=== PATIENT | male | born 1935 | race Caucasian/White ===

== ENCOUNTER 2021-06-23 15:36 | Emergency (ER) | payer MEDICARE ==
--- OUTSIDE RECORDS SUMMARY | 2021-06-23 15:39 | XMS REPORT | Clinical Summary ---
:1935 Author Organization [facility] MD [facility] Address [address] [place] [address] Care Team Providers Name Role Phone Destin Persaud MD Primary Care Provider Allergies No known active allergies Medications No known medications Active Problems Not on file Encounters Date Type Specialty Care Team Description 03/28/2021 Documentation Dermatology Wendy Jaimes, RN 03/27/2021 Office Visit Dermatology Destin Persaud Senile angio ma (Primary Dx); Multiple actini c keratoses; Other seborrhei c keratosis; Lentigo; Personal histor y of malignant melanoma of skin; Actinic keratos is; Inflamed seborr heic keratosis 03/27/2021 NPR Patient Access Services 03/27/2021 Travel 03/07/2021 Emergency Emergency Medicine Gomez Jamil, Melanoma in situ (Primary Dx) 03/07/2021 Travel after 06/23/2020 Family History Medical History Relation Name Comments Brain cancer Son Relation Name Status Comments Son Alive Social History Tobacco Use Types Packs/Day Years Used Date Never Smoker Smokeless Tobacco: Never Used Alcohol Use Standard Drinks/Week Comments Never 0 (1 standard drink = 0.6 oz pure alcoho l) Alcohol Habits Answer Date Recorded How often do you have a drink containing alcohol? Never 03/27/2021 How many drinks containing alcohol do you have on a typical Not asked day when you are drinking? How often do you have six or more drinks on one occasion? No t asked Comment: Not asked Sex Assigned at Date Recorded Not on file Job Start Date Occupation Industry Not on file Not on file Not on file Obstetrics History Last Filed Vital Signs Vital Sign Reading Time Taken Comments Blood Pressure 160/78 03/27/2021 9:32 AM [employer] Pulse 67 03/27/2021 9:32 AM [employer] Temperature 36.7 C (98.1 F) 03/27/2021 9:32 AM [employer] Respiratory Rate 18 03/27/2021 9:32 AM [employer] Oxygen Saturation 97% 03/27/2021 9:32 AM [employer] Inhaled Oxygen Concentration - - Weight 84.3 kg (185 lb 13.6 oz) 03/27/2021 9:32 AM [employer] Height 165.1 cm (5' 5") 03/27/2021 9:32 AM [employer] Body Mass Index 30.93 03/27/2021 9:32 AM [employer] Plan of Treatment Date Type Specialty Care Team Description 09/25/2021 Office Visit Dermatology Destin Persaud MD [address] [place], [place] [address] (Wo rk) Health Maintenance Due Date Last Done Comments COVID-19 Vaccination (1) 01/07/1940 Procedures Procedure Name Priority Date/Time Associated Comments Diagnosis TMP HIV 1/2 AG&AB PATH Routine 03/07/2021 10:20 R esults for this INTERP AM [employer] procedure are i n the results section. FRACTIONATED BILIRUBIN Now 03/07/2021 10:20 R esults for this AM [employer] procedure are i n the results section. TOTAL PROTEIN Now 03/07/2021 10:20 Results fo r this AM [employer] procedure are i n the results section. ASPARTATE Now 03/07/2021 10:20 Results for this AMINOTRANSFERASE AM [employer] procedure a re in the results section. ALANINE AMINOTRANSFERASE Now 03/07/2021 10:20 Results for this AM [employer] procedure are i n the results section. ALKALINE PHOSPHATASE Now 03/07/2021 10:20 Res ults for this AM [employer] procedure are i n the results section. ALBUMIN LEVEL Now 03/07/2021 10:20 Results fo r this AM [employer] procedure are i n the results section. CALCIUM LEVEL TOTAL Now 03/07/2021 10:20 Resu lts for this AM [employer] MER[employer] procedure are i n the results section. .GLOMERULAR FILTRATION Now 03/07/2021 10:20 R esults for this RATE AM [employer] procedure are i n the results section. SERUM CREATININE Now 03/07/2021 10:20 Results for this AM [employer] procedure are i n the results section. ELECTROLYTE PANEL Now 03/07/2021 10:20 Result s for this AM [employer] procedure are i n the results section. BLOOD UREA NITROGEN Now 03/07/2021 10:20 Resu lts for this AM [employer] procedure are i n the results section. GLUCOSE LEVEL Now 03/07/2021 10:20 Results fo r this AM [employer] procedure are i n the results section. MANUAL DIFFERENTIAL STAT 03/07/2021 10:20 Resu lts for this AM [employer] MER[employer] procedure are i n the results section. Results CBC STAT 03/07/2021 10:20 Results for this AM [employer] MERCHANT procedure are i n the results section. HIV-1/2 ANTIGEN AND Now 03/07/2021 10:20 Resu lts for this ANTIBODIES, FOURTH AM [employer] MERCHANT procedure are in GENERATION the results section. PHOSPHORUS LEVEL Now 03/07/2021 10:20 Results for this AM [employer] MERCHANT procedure are i n the results section. MAGNESIUM LEVEL Now 03/07/2021 10:20 Results for this AM [employer] MERCHANT procedure are i n the results section. COMPREHENSIVE METABOLIC Now 03/07/2021 10:20 PANEL AM [employer] COMPLETE BLOOD COUNT W/ Now 03/07/2021 10:20 DIFFERENTIAL AM [employer] MERCHANT after 06/23/2020 Results TMP HIV 1/2 Ag&Ab Path Interp (03/07/2021 10:20 AM INTERNET MERCHANT) HIV 1/2 Ag&Ab Negative for HIV-1 antigen a nd HIV-1/HIV-2 antibodies. No laboratory evidence of HIV infection. If acute HIV infection is suspected, consider testing for HIV-1 RNA. ANDREIA GARCIA DONOR Interp Comment: CENTER CLAUDIO URRUTIA, Dictated by: CLAUDIO URRUTIA, Dictated Date/Time: 03.08.20 8:05 AM INTERNET MERCHANT Transcribed Date/Time: 03.08.2021 8:05 AM INTERNET MERCHANT Electronically Signed By: CLAUDIO URRUTIA, on 120 8:05 AM C Specimen Blood Performing Organization Address City/[facility]/ZIP [facility] Phon e Number [facility] DONOR [address] [address] HIV-1/2 Antigen and Antibodies, Fourth Generation (03/07/2021 10:20 AM INTERNET MERCHANT) Pathologist [facility] HIV 1/2 Ag & Ab, Non Reactive Non Reactive [facility] DONOR 4th Gen Comment: CENTER Performed at: [facility] [place] [address] Specimen Blood Performing Organization Address City/[facility] Phon e Number [facility] DONOR [address] [address] .Serum Creatinine (03/07/2021 10:20 AM INTERNET MERCHANT) Pathologist [facility] Creatinine 1.12 0.67 - 1.17 mg/dL [facility] C ENTER Specimen Blood Performing Organization Address City/[facility] Phon e Number [facility]ER Unless otherwise noted, [place] [address] CENTER all lab tests performed by: Division of Pathology and Laboratory Medicine [facility] (ABNORMAL) .CBC (03/07/2021 10:20 AM INTERNET MERCHANT) [facility] WBC 5.3 4.0 - 11.0 [facility] K/uL [facility] CENTER RBC 4.71 4.50 - 6.00 [facility] M/[facility] CENTER Hgb 13.9 (L) 14.0 - 18.0 [facility] gm/dL [facility] Hct 42.5 40.0 - 54.0 % [facility] MCV 90 82 - 98 fL [facility] MCH 29.5 27.0 - 31.0 pg [facility] MCHC 32.7 31.0 - 36.0 [facility] gm/dL [facility] RDW-SD 42.2 35.1 - 46.3 fL [facility] RDW-CV 12.8 12.0 - 15.5 % [facility] Platelet count 211 140 - 440 K/uL [facility] MPV 9.5 4.0 - 10.4 fL [facility] INRBC 0.0 <=0.0 % [facility] Comment: CANCER CENTER The INRBC (instrument NRBC) value reflects the enumera tion of nucleated red blood cells contained in a 200uL samp le of whole blood analyzed by the instrument. This value may differ from the NRBC value reported in a manual differ ential, which is based on a 100 cell differential. Specimen Blood Performing Organization Address City/State/ZIP Code Phon e Number [facility] Unless otherwise noted, [place] [address] CENTER all lab tests performed by: Division of Pathology and Laboratory Medicine [address] (ABNORMAL) Glomerular Filtration Rate (03/07/2021 10:20 AM INTERNET MERCHANT) eGFR-AA 68 >=60 [facility] Comment: mL/min/1.73 [facility] Normal eGFR: >= 60 mL/min/1.73 m2 sq. m Note: The eGFR is calculated using the CKD-EPI equation. The eGFR declines with age. eGFR <60 mL/min/1.73 m2 is considered as "decreased". This equation should only be used for patients 18 and older. According to the National dney Foundation's Kidney Disease Outcome Quality Initiative (KDOQI) classification and 2012 Kidney Disease Improving Global Outcomes (KDIGO) Clinical Practice Guideline, the stage of CKD should be categorized based on estimated GFR. Stage Description GFR mL/min/1.73 m2 1 Normal or high GFR >=90 2 Mildly decreased GFR 60-89 3a Mildly to moderately decreased GFR 45-59 3b Moderately to severely decreased GFR 30-44 4 Severely decreased GFR 15-29 5 Kidney failure <15 eGFR-LOIS 59 (L) >=60 [facility] Comment: mL/min/1.73 [facility] Normal eGFR: >= 60 mL/min/1.73 m2 sq. m Note: The eGFR is calculated using the CKD-EPI equation. The eGFR declines with age. eGFR <60 mL/min/1.73 m2 is considered as "decreased". This equation should only be used for patients 18 and older. According to the National dney Foundation's Kidney Disease Outcome Quality Initiative (KDOQI) classification and 2012 Kidney Disease Improving Global Outcomes (KDIGO) Clinical Practice Guideline, the stage of CKD should be categorized based on estimated GFR. Stage Description GFR mL/min/1.73 m2 1 Normal or high GFR >=90 2 Mildly decreased GFR 60-89 3a Mildly to moderately decreased GFR 45-59 3b Moderately to severely decreased GFR 30-44 4 Severely decreased GFR 15-29 5 Kidney failure <15 Specimen Blood Performing Organization Address City/[facility]/ZIP [facility] Phon e Number [facility] Unless otherwise noted, [address] all lab tests performed by: Division of Pathology and Laboratory Medicine [address] [place] [address] Fractionated Bilirubin (03/07/2021 10:20 AM INTERNET MERCHANT) Pathologist [facility] Bili Total 0.3 <=1.2 mg/dL [facility] Comment: CANCER CENTER Indocyanine Green (ICG) may cause falsely elevated bilirubin results. Total and direct bilirubin must not be measured from samples containing indocyanine green. False elevation of total mike irubin can be seen in patients with IgG concentrations above 28 g/L. Bili Direct <0.2Comment: <=0.3 mg/dL [facility] Indocyanine Green [facility] (ICG) may cause falsely elevated bilirubin results. Total and direct bilirubin must not be measured from samples containing indocyanine green. Bili Indirect See NoteComment: 0.0 - 0.9 [facility] Unable to calculate mg/dL [facility] Indirect Bilirubin result due to some parameters are outside reportable range Specimen Blood Performing Organization Address City/[facility] Phon e Number [facility] Unless otherwise noted, [address] all lab tests performed by: Division of Pathology and Laboratory Medicine [address] [place] [address] (ABNORMAL) Differential (03/07/2021 10:20 AM INTERNET MERCHANT) Pathologist [facility] Neutrophil % 58.0 42.0 - 66.0 % [facility] Lymphocyte % 30.6 24.0 - 44.0 % [facility] Monocyte % 8.7 (H) 2.0 - 7.0 % [facility] Eosinophil % 1.9 1.0 - 4.0 % [facility] Basophil % 0.6 0.0 - 1.0 % [facility] IGRE % 0.2Comment: IGRE % 0.0 - 0.4 % [facility] count includes [facility] Metamyelocytes, Myelocytes, and Promyelocytes. Neutrophil Abs 3.07 1.70 - 7.30 [facility] Lymphocyte Abs 1.62 1.00 - 4.80 [facility] Monocyte Abs 0.46 0.08 - 0.70 [facility] Eosinophil Abs 0.10 0.04 - 0.40 [facility] Basophil Abs 0.03 0.00 - 0.10 [facility] IG Abs 0.01 0.00 - 0.04 [facility] Specimen Blood Performing Organization Address City/State/ZIP Code Phon e Number [facility] Unless otherwise noted, [address] all lab tests performed by: Division of Pathology and Laboratory Medicine [address] [place] BUN (03/07/2021 10:20 AM INTERNET MERCHANT) Pathologist Sig nature BUN 14 6 - 23 mg/dL [facility] Specimen Blood Performing Organization Address City/[facility]/ZIP [facility] Phon e Number [facility] Unless otherwise noted, [address] all lab tests performed by: Division of Pathology and Laboratory Medicine [address] [place] ALT (03/07/2021 10:20 AM INTERNET MERCHANT) Pathologist Sig nature ALT 9 <=41 U/L [facility] Specimen Blood Performing Organization Address City/[facility]/ZIP Code Phon e Number [facility] Unless otherwise noted, [address] all lab tests performed by: Division of Pathology and Laboratory Medicine [address] [place] Aspartate Aminotransferase (03/07/2021 10:20 AM INTERNET MERCHANT) Pathologist Sig nature AST 13 <=40 U/L [facility] Specimen Blood Performing Organization Address City/[facility]/ZIP Code Phon e Number [facility] Unless otherwise noted, [address] all lab tests performed by: Division of Pathology and Laboratory Medicine [address] [place] Total Protein (03/07/2021 10:20 AM INTERNET MERCHANT) Pathologist Sig nature Total Protein 7.5 6.4 - 8.3 g/dL [facility] [place] [address] Specimen Blood Performing Organization Address City/[facility]/ZIP [facility] Phon e Number [facility] Unless otherwise noted, [address] all lab tests performed by: Division of Pathology and Laboratory Medicine [address] [place] Phosphorus Level (03/07/2021 10:20 AM INTERNET MERCHANT) Pathologist Sig nature Phosphorus 2.8 2.5 - 4.5 mg/dL [facility] [address] Specimen Blood Performing Organization Address [facility] Phon e Number [facility] Unless otherwise noted, [address] all lab tests performed by: Division of Pathology and Laboratory Medicine [address] [place] Alkaline Phosphatase (03/07/2021 10:20 AM INTERNET MERCHANT) Pathologist Sig nature Alk Phos 91 40 - 129 U/L [facility] Specimen Blood Performing Organization Address City/[facility] Phon e Number [facility] Unless otherwise noted, [address] all lab tests performed by: Division of Pathology and Laboratory Medicine [address] [place] Magnesium Level (03/07/2021 10:20 AM INTERNET MERCHANT) Pathologist Sig nature Magnesium 2.2 1.6 - 2.6 mg/dL [facility] [place] [address] Specimen Blood Performing Organization Address [facility] Phon e Number [facility] Unless otherwise noted, [address] all lab tests performed by: Division of Pathology and Laboratory Medicine [address] [place] (ABNORMAL) Glucose Level (03/07/2021 10:20 AM INTERNET MERCHANT) Glucose Level 100 (H) 70 - 99 mg/dL [facility] Comment: CANCER CENTER Effective 10/25/15, the gluco se reference intervals have been updated based on [place] [employer] guidelines (Standards of Medical Care in Diabetes 2016. Diabetes Care 2016; 39: S13-S22). Fasting blood glucose: Normal: 70-99 mg/dL Impaired fasting glucose (in creased risk for diabetes or pre-diabetes): 100- 125 mg/dL Diabetes mellitus: >/=126 mg/dL Random blood glucose: Normal: 70-199 mg/dL Note: Random glucose >100 mg/dL is assoc iated with increased risk for diabetes Specimen Blood Performing Organization Address [facility] Phon e Number [facility] Unless otherwise noted, [address] all lab tests performed by: Division of Pathology and Laboratory Medicine [address] [place] Calcium Level (03/07/2021 10:20 AM INTERNET MERCHANT) Pathologist Sig nature Calcium Lvl 9.6 8.4 - 10.2 mg/dL [facility] Specimen Blood Performing Organization Address City/[facility]/ZIP Code Phon e Number [facility] Unless otherwise noted, [address] all lab tests performed by: Division of Pathology and Laboratory Medicine [address] [place] [address] Albumin Level (03/07/2021 10:20 AM INTERNET MERCHANT) Pathologist Sig nature Albumin Lvl 4.8 3.5 - 5.2 gm/dL [facility] [place] [address] Specimen Blood Performing Organization Address City/[facility] Phon e Number [facility] Unless otherwise noted, [address] all lab tests performed by: Division of Pathology and Laboratory Medicine [address] [place] [address] Electrolyte Panel (03/07/2021 10:20 AM INTERNET MERCHANT) Pathologist Sig nature Sodium Lvl 141 136 - 145 mEq/L [facility] Potassium Lvl 4.4 3.5 - 5.1 mEq/L [facility] Chloride 103 98 - 107 mEq/L [facility] CO2 27 22 - 29 mEq/L [facility] Anion Gap 11 4 - 14 mEq/L [facility] Specimen Blood Performing Organization Address City/[facility] Phon e Number [facility] Unless otherwise noted, [address] all lab tests performed by: Division of Pathology and Laboratory Medicine [address] [place] [address] [place] after 06/23/2020 Insurance Payer Benefit Plan / Subscriber ID Effective Dates Phone Addre ss Type Group HUMANA HUMANA CHOICE [id number] 2021-Prese [address] [address] Medicare [place] [address] Care Teams Human Resources Trainee Relationship Specialty Start Date End Date Destin Persaud MD PCP - General Dermatology 03/27/[address] [place] [id number]
--- OUTSIDE RECORDS SUMMARY | 2021-06-23 15:40 | XMS REPORT | Continuity of Care Document ---
:1935 Author Organization [facility] t Address [address] [place] [address] Care Team Providers Name Role Phone [phone] Primary Care Physician Unavailable Yolanda Li Attending Clinician Unavailable SYSTEM, PROVIDER NOT IN Attending Clinician Unavailable Theodore EDWARDS Attending Clinician Unavailable CORI Attending Clinician Unavailable Cori PERSAUD Attending Clinician Baltazar PERSAUD Attending Clinician BALTAZAR Attending Clinician Unavailable Payers Payer Name Policy Type Policy Effective Date Expiration Date [facility] Number [facility] [id number] 2021 (MEDICARE 00:00:00 REPLACEMENT HMO) HUMANA [id number] 2021 MD Cabrera MEDICAREHUMANA 00:00:00 CHOICE MEDICARE [id number] 1-[address] [place] [id number] Problems This patient has no known problems. Allergies, Adverse Reactions, Alerts This patient has no known allergies or adverse reactions. Family History Family Member Diagnosis Comments Start Date Stop Date Source Natural son Brain cancer MD Cabrera Social History Social Habit Start Date Stop Date Quantity Comments Source History KIMOH MD Cabrera Alcohol Std Drinks History SDOH MD Cabrera Alcohol Binge History KIMOH MD Cabrera Alcohol Comment Tobacco use and 2021-03-27 2021-03-27 Smokeless tobacco MD Cabrera exposure 00:00:00 00:00:00 non-user Alcohol intake 2021-03-27 2021-03-27 Lifetime MD Gilma arzola 00:00:00 00:00:00 non-drinker (finding) History SDOH 2021-03-27 2021-03-27 1 MD Cabrera Alcohol Frequency 00:00:00 00:00:00 [birth year] MD Levy on 00:00:00 00:00:00 Smoking Status Start Date Stop Date Source Never smoked tobacco MD Cabrera Medications This patient has no known medications. Vital Signs Vital Name Observation Time Observation Value Comments Source Systolic blood pressure 2021-03-27 15:32:13 160 mm[Hg] MD Cabrera Diastolic blood pressure 2021-03-27 15:32:13 78 mm[Hg] MD Cabrera Heart rate 2021-03-27 15:32:13 67 /min MD Kanu vinson Body temperature 2021-03-27 15:32:13 36.72 Unique MD Abhinav mcallister Respiratory rate 2021-03-27 15:32:13 18 /min MD Abhinav mcallister Body height 2021-03-27 15:32:13 165.1 cm MD Kanu vinson Body weight 2021-03-27 15:32:13 84.3 kg MD Kanu vinson BMI 2021-03-27 15:32:13 30.93 kg/m2 MD Kanu vinson Oxygen saturation in 2021-03-27 15:32:13 97 /min MD Cabrera Arterial blood by Pulse oximetry Procedures Procedure Date / Time Performed Performing Clinician [facility] e COMPLETE BLOOD COUNT W/ 2021-03-07 16:20:00 Pat Leonard MD DIFFERENTIAL COMPREHENSIVE METABOLIC PANEL 2021-03-07 16:20:00 Pat Leonard MD MAGNESIUM LEVEL 2021-03-07 16:20:00 Pat Leonard MD derson PHOSPHORUS LEVEL 2021-03-07 16:20:00 Pat Leonard MD HIV-1/2 ANTIGEN AND 2021-03-07 16:20:00 Pat Leonard ANTIBODIES, FOURTH GENERATION Results CBC 2021-03-07 16:20:00 Pat Leonard MD MANUAL DIFFERENTIAL 2021-03-07 16:20:00 Pat Leonard GLUCOSE LEVEL 2021-03-07 16:20:00 Pat Leonard MD BLOOD UREA NITROGEN 2021-03-07 16:20:00 Pat Leonard ELECTROLYTE PANEL 2021-03-07 16:20:00 Pat Leonard MD SERUM CREATININE 2021-03-07 16:20:00 Pat Leonard MD nderson .GLOMERULAR FILTRATION RATE 2021-03-07 16:20:00 Juan Leonard MD CALCIUM LEVEL TOTAL 2021-03-07 16:20:00 Pat Leonard ALBUMIN LEVEL 2021-03-07 16:20:00 Pat Leonard MD ALKALINE PHOSPHATASE 2021-03-07 16:20:00 Pat Leonard MD ALANINE AMINOTRANSFERASE 2021-03-07 16:20:00 Belen Leonard MD ASPARTATE AMINOTRANSFERASE 2021-03-07 16:20:00 Trent Leonard MD TOTAL PROTEIN 2021-03-07 16:20:00 Pat Leonard MD FRACTIONATED BILIRUBIN 2021-03-07 16:20:00 Pat Leonard MD TMP HIV 1/2 AG&AB PATH INTERP 2021-03-07 16:20:00 Pat Leonard MD Plan of Care Planned Activity Planned Date Details Comments Source Future Scheduled Test 1940-01[birth year]07 00:00:00 COVID-19 Vaccination MD Cabrera (1) [code = COVID-19 Vaccination (1)] Encounters Start End Encounter Admission Attending Care Care Encounter Source Date/Time Date/Time Type Type Clinicians Facility Department ID 2021-05-11 Outpatient Li, STLMLC STLC [id number] [facility] 10:00:03 Yolanda [address] [facility] 2021-05-03 Outpatient SYSTEM, JORGE LUIS KANG [id number] 11:28:47 PROVIDER Cam arzola 2021-06-20 2021-06-20 ambulatory STLMLC [facility]LMLC [id number] [facility]00 [facility] Outpat[facility] Clinics 2021-05-16 2021-05-16 Outpatient DMG DMG [id number] [facility] 09:00:00 09:00:00 [id number] [facility] 2021-05-11 2021-05-11 ambulatory STLMLC STLMLC [id number] [facility]00 [facility] 2021-03-27 2021-03-27 Outpatient EL RAPINI, MDA MDA [id number] 09:24:05 10:23:37 TIAGO arzola 2021-03-27 2021-03-27 Outpatient EL MDA MDA [id number] 08:52:08 08:52:14 Cam arzola 2021-03-07 2021-03-07 Emergency UR BALTAZAR, MDA Emergency [id number] 10:11:00 12:25:00 MARION arzola Results Test Description Test Time Test Comments Results Result Comments Source TMP HIV 1/2 Ag&Ab Path Inter 2021-03-08 14:05:56 Test Item Value Reference Range Interpretation Comme nts HIV 1/2 Negative for CLAUDIO Ag&Ab HIV-1 antigen Bin URRUTIA emilie by: CLAUDIO URRUTIA,Dictated Date/Time: Interp and 03.08.2021 8:05 AM [employer] Transcribed Date/Time: 03.08.2021 (test HIV-1/HIV-2 8:05 AM CSTElec tronically Signed By: CLAUDIO URRUTIA, on code = antibodies. 03.08.2021 8:05 AM C 9394) No laboratory evidence of HIV infection. If acute HIV infection is suspected, consider testing for HIV-1 RNA. MD CabreraHIV-1/2 Antigen and Antibodies, Fourth [id number] 05:33:43 Test Item Value Reference Range Interpretation Comments HIV 1/2 Ag & Ab, Non Reactive Non Reactive Performed a t: 4th Gen (test code Seth Blood Donor = 9280) [id number] [facility], [place], [place] [address] MD CabreraFractionated [id number] 17:22:37 Test Item Value Reference Range Interpretation Comments Bili Total (test 0.3 mg/dL See_Comment Indocyanine Green (ICG) code = 5096) may cause false ly elevated biliru bin results. Total and direct bilirubin must not be measured from s amples containing indo cyanine green. False el evation of total bilirubin can be seen in patient s with IgG concentrations above 28 g/L. [Automate d message] The system [employer] generated this result transmitted ref erence range: <=1.2. T he reference range was not used to interpr et this result as normal/abnormal . Bili Direct (test <0.2 See_Comment Indocyanin e Green (ICG) code = 5094) may cause false ly elevated biliru bin results. Total and direct bilirubin must not be measured from s amples containing indo cyanine green. [Automat ed message] The sy stem which generated this result transmitted ref erence range: <=0.3 mg /dL. The reference range was not used to interpr et this result as normal/abnormal . Bili Indirect (test See Note 0.0-0.9 Unable t o calculate code = 5095) Indirect Biliru bin result due to some par ameters are outside rep ortable range MD CabreraElectrolyte [id number] 17:22:36 Test Item Value Reference Range Interpretation Comments Sodium Lvl (test code = 141 See_Comment [Au tomated message] The 8530) system which ge nerated this result tra nsmitted reference range : 136 - 145 mEq/L. The reference range was not u sed to interpret this result as normal/abnormal . Potassium Lvl (test 4.4 See_Comment [Automa emilie message] The code = 6854) system which ge nerated this result tra nsmitted reference range : 3.5 - 5.1 mEq/L. The reference range was not u sed to interpret this result as normal/abnormal . Chloride (test code = 103 See_Comment [Auto mated message] The 4763) system which ge nerated this result tra nsmitted reference range : 98 - 107 mEq/L. The refe rence range was not u sed to interpret this result as normal/abnormal . CO2 (test code = 5227) 27 See_Comment [Aut omated message] The system which ge nerated this result tra nsmitted reference range : 22 - 29 mEq/L. The refe rence range was not u sed to interpret this result as normal/abnormal . Anion Gap (test code = 11 See_Comment [Aut omated message] The 9325) system which ge nerated this result tra nsmitted reference range : 4 - 14 mEq/L. The refe rence range was not u sed to interpret this result as normal/abnormal . MD CabreraPhosphorus [id number] 17:22:33 Test Item Value Reference Range Interpretation Comments Phosphorus (test code = 6817) 2.8 mg/dL 2.5-4.5 MD CabreraGlomerular Filtration [id number] 17:22:32 Test Item Value Reference Range Interpretation Comments eGFR-AA (test code = 68 See_Comment Normal eGFR: >= 60 8062) mL/min/1.73 m2N ote: The eGFR is hugo culated using the CKD-E PI equation. The e GFR declines with a ge. eGFR <60 mL/min /1.73 m2 is considere d as "decreased". Th is equation should only be used for pat ients 18 and older. According to th e National Kidney Foundation's Ki dney Disease Outcome Quality Initiat yonny (KDOQI) classif ication and 2012 Kidney Disease Improvi ng Global Outcomes (KDIGO) Clinica l Practice Guidel ine, the stage of CK D should be categ orized based on estima emilie GFR. Stage Desc ription GFR mL/mi n/1.73 m21 Normal or h igh GFR >=902 Mildly decreased GFR 60-893a M ildly to moderately decreased GFR 45-593b Moderat jason to severely decrea sed GFR 30-444 Elham rely decreased GFR 15-295 Kidney f ailure <15 [Auto mated message] The sy stem which generated this result transmit emilie reference range : >=60 mL/min/1.73 sq. m. The reference range was not used to int erpret this result as normal/abnormal . eGFR-LOIS (test code = 59 See_Comment L Normal eGFR: >= 60 8063) mL/min/1.73 m2N ote: The eGFR is hguo culated using the CKD-E PI equation. The e GFR declines with a ge. eGFR <60 mL/min /1.73 m2 is considere d as "decreased". Th is equation should only be used for pat ients 18 and older. According to th e National Kidney Foundation's Ki dney Disease Outcome Quality Initiat yonny (KDOQI) classif ication and 2011 Kidney Disease Improvi ng Global Outcomes (KDIGO) Clinica l Practice Guidel ine, the stage of CK D should be categ orized based on estima emilie GFR. Stage Desc ription GFR mL/mi n/1.73 m21 Normal or h igh GFR >=902 Mildly decreased GFR 60-893a M ildly to moderately decreased GFR 45-593b Moderat jason to severely decrea sed GFR 30-444 Elham rely decreased GFR 15-295 Kidney f ailure <15 [Auto mated message] The sy stem which generated this result transmit emilie reference range : >=60 mL/min/1.73 sq. m. The reference range was not used to int erpret this result as normal/abnormal . Lab Interpretation Abnormal (test code = 65274-9) MD CabreraCalcium [id number] 17:22:31 Test Item Value Reference Range Interpretation Comments Calcium Lvl (test code = 5258) 9.6 mg/dL 8.4-10.2 MD CabreraTotal [id number] 17:22:30 Test Item Value Reference Range Interpretation Comments Total Protein (test code = 7649) 7.5 g/dL 6.4-8.3 MD CabreraAlbumin [id number] 17:22:29 Test Item Value Reference Range Interpretation Comments Albumin Lvl (test code 4.8 See_Comment [Aut omated message] The = 2148) system which ge nerated this result tra nsmitted reference range : 3.5 - 5.2 gm/dL. The refe rence range was not used to interpret this result as normal/abnormal . MD CabreraMagnesium [id number] 17:22:28 Test Item Value Reference Range Interpretation Comments Magnesium (test code = 6359) 2.2 mg/dL 1.6-2.6 MD CabreraAspartate [id number] 17:22:27 Test Item Value Reference Range Interpretation Comments AST (test code = 13 U/L See_Comment [Automated message] The 4731) system which ge nerated this result transmit emilie reference range : <=40. The reference range was not used to interpr et this result as ian l/abnormal. MD CabreraAlkaline [id number] 17:22:26 Test Item Value Reference Range Interpretation Comments Alk Phos (test code = 4768) 91 U/L 40-129 MD [id number] 17:22:24 Test Item Value Reference Range Interpretation Comments ALT (test code = 9 U/L See_Comment [Automated message] The 7325) system which ge nerated this result transmit eimlie reference range : <=41. The reference range was not used to interpr et this result as ian l/abnormal. MD CabreraGlucose [id number] 17:22:23 Test Item Value Reference Range Interpretation Comments Glucose Level (test code 100 mg/dL 70-99 H Eff ective 10/25/15, = 5699) the glucose reference inter vals have been updat ed based on [place] Diabetes Associ ation guidelines (Standards of Medical Care in Diabetes 2016. Diabetes Care 2 016; 39: S13-S22).Fa sting blood glucose:Normal: 70-99 mg/dLImpa ired fasting glucose (increased risk for diabetes or pre-diabetes): 100-125 mg/dLDiabetes mellitus: >/=1 26 mg/dL Random bl ood glucose:Normal: 70-199 mg/dLNot e: Random glucose >100 mg/dL is associ ated with increased risk for diabetes Lab Interpretation (test Abnormal code = 61411-8) MD Cabrera.Serum [id number] 17:22:22 Test Item Value Reference Range Interpretation Comments Creatinine (test code = 5399) 1.12 mg/dL 0.67-1.17 MD [id number] 17:22:21 Test Item Value Reference Range Interpretation Comments BUN (test code = 5055) 14 mg/dL 6-23 MD Cab[id number] 16:30:26 Test Item Value Reference Range Interpretation Comments Neutrophil % (test code = 58.0 % 42.0-66.0 25524-5) Lymphocyte % (test code = 30.6 % 24.0-44.0 737-7) Monocyte % (test code = 8.7 % 2.0-7.0 H 744-3) Eosinophil % (test code = 1.9 % 1.0-4.0 713-8) Basophil % (test code = 0.6 % 0.0-1.0 707-0) IGRE % (test code = 0.2 % 0.0-0.4 IGRE % c ount 79819-4) includes Metamyelocytes, Myelocytes, and Promyelocytes. Neutrophil Abs (test code 3.07 K/uL 1.70-7.30 = 753-4) Lymphocyte Abs (test code 1.62 K/uL 1.00-4.80 = 732-8) Monocyte Abs (test code = 0.46 K/uL 0.08-0.70 743-5) Eosinophil Abs (test code 0.10 K/uL 0.04-0.40 = 712-0) Basophil Abs (test code = 0.03 K/uL 0.00-0.10 705-4) IG Abs (test code = 0.01 K/uL 0.00-0.04 54308-3) Lab Interpretation (test Abnormal code = 39601-3) MD Cabrera.[id number] 16:30:16 Test Item Value Reference Range Interpretation Comments WBC (test code = 5.3 K/uL 4.0-11.0 6690-2) RBC (test code = 789-8) 4.71 See_Comment [Au tomated message] The system [employer] generated this result transmitted ref erence range: 4.50 - 6 .00 M/uL. The refer ence range was not u sed to interpret this result as normal/abnor mal. Hgb (test code = 718-7) 13.9 See_Comment L [Au tomated message] The system [employer] generated this result transmitted ref erence range: 14.0 - 1 8.0 gm/dL. The refe rence range was not u sed to interpret this result as normal/abnor mal. Hct (test code = 42.5 % 40.0-54.0 4544-3) MPV (test code = 787-2) 9.5 fL 4.0-10.4 MCH (test code = 785-6) 29.5 pg 27.0-31.0 MCHC (test code = 32.7 See_Comment [Automate d message] 786-4) The system [employer] generated this result transmitted ref erence range: 31.0 - 3 6.0 gm/dL. The refe rence range was not u sed to interpret this result as normal/abnor mal. RDW-SD (test code = 42.2 fL 35.1-46.3 21145-5) RDW-CV (test code = 12.8 % 12.0-15.5 788-0) Platelet count (test 211 K/uL 140-440 code = 777-3) INRBC (test code = 0.0 % See_Comment The INRBC (instrument 5974) NRBC) value ref lects the enumeration of nucleated red b lood cells contained in a 200uL sampleof whole blood analyzed by the instrument. Thi s value maydiffer from the NRBC value repo rted in a manual differential,wh ich is based on a 100 cell differential. [Automated mess age] The system [employer] generated this result transmitted ref erence range: <=0.0. T he reference range was not used to int erpret this result as normal/abnormal . Lab Interpretation Abnormal (test code = 69735-1) MD Cabrera
--- NOTE | 2021-06-23 16:00 | RAD REPORT ---
EXAM DESCRIPTION: CT - Ct Stroke Brain Wo Cont - 06/23/2021 3:51 pm CLINICAL HISTORY: NUMBNESS COMPARISON: No comparisons TECHNIQUE: All CT scans are performed using dose optimization technique as appropriate and may inclu de automated exposure control or mA/KV adjustment according to patient size. FINDINGS: No intracranial hemorrhage, hydrocephalus or extra-axial fluid collection.No areas of brai n edema or evidence of midline shift. Remote appearing bilateral basal ganglia lacunar infarcts. Cere bral atrophy. The paranasal sinuses and mastoids are clear. The calvarium is intact. IMPRESSION: No acute intracranial abnormality.
[2021-06-23] MEDS ORDERED: FOLIC ACID 5 MG/ML VIAL ONE (16:14)
[2021-06-23] MEDS ORDERED: NA CHLORIDE 0.9% 1,000 ML ONE (16:14)
[2021-06-23 16:18] LABS: Absolute Lymphocytes (CBC) 1.8 K/uL (0.7-4.9); Hematocrit 40.5 % (39.6-49.0); Lymphocytes % 23.5 % (15.3-44.8); MPV 7.9 fL (7.6-11.3); RBC Red Blood Cell Count 4.59 M/uL (4.33-5.43)
[2021-06-23] MEDS ORDERED: ALTEPLASE 100 ML IV ONE (16:24)
[2021-06-23 16:29] LABS: Protime INR 1.02
[2021-06-23 16:35] LABS: Potassium 4.2 mmol/L (3.5-5.1)
--- NOTE | 2021-06-23 16:38 | EDPHYS ---
Physician Documentation [facility] Name: Chilo Hendricks Jr Age: 86 yrs Sex: Male : 1935 Arrival Date: 06/23/2021 Time: 15:37 Bed 8 Private MD: Ralph Li ED Physician Heber Cabrera HPI: 06/23 16:26 This 86 yrs old Male presents to ER via Ambulatory with complaints of Chest alicja Pain, Numbness - left side. 16:26 The patient or guardian reports chest pain that is located primarily in the substernal alicja area. Onset: 1200 hour(s) ago. The pain does not radiate. Historical: - Allergies: 16:01 No Known Allergies; iw - PMHx: 16:01 Myocardial infarction; iw - PSHx: 16:01 cardiac stent; iw - Immunization history:: Adult Immunizations unknown. - Social history:: Smoking status: Patient denies any tobacco usage or history of. ROS: 16:28 Constitutional: Negative for fever, chills, and weight loss, Eyes: Negative for injury, alicja pain, redness, and discharge, ENT: Negative for injury, pain, and discharge, Neck: Negative for injury, pain, and swelling, Cardiovascular: Negative for chest pain, palpitations, and edema, Respiratory: Negative for shortness of breath, cough, wheezing, and pleuritic chest pain, Abdomen/GI: Negative for abdominal pain, nausea, vomiting, diarrhea, and constipation, Back: Negative for injury and pain, : Negative for injury, bleeding, discharge, and swelling, Skin: Negative for injury, rash, and discoloration, Psych: Negative for depression, anxiety, suicide ideation, homicidal ideation, and hallucinations, Allergy/Immunology: Negative for hives, rash, and allergies, Endocrine: Negative for neck swelling, polydipsia, polyuria, polyphagia, and marked weight changes, Hematologic/Lymphatic: Negative for swollen nodes, abnormal bleeding, and unusual bruising. 16:28 Constitutional: 16:28 MS/extremity: Positive for decreased range of motion, of the left arm and left leg. 16:28 MS/extremity: Positive for 16:28 Neuro: Positive for tingling, of the left arm and left leg. Exam: 16:28 Radiologist reports: NEGATIVE alicja 16:28 Constitutional: This is a well developed, well nourished patient who is awake, alert, and in no acute distress. Head/Face: Normocephalic, atraumatic. Eyes: Pupils equal round and reactive to light, extra-ocular motions intact. Lids and lashes normal. Conjunctiva and sclera are non-icteric and not injected. Cornea within normal limits. Periorbital areas with no swelling, redness, or edema. ENT: Nares patent. No nasal discharge, no septal abnormalities noted. Tympanic membranes are normal and external auditory canals are clear. Oropharynx with no redness, swelling, or masses, exudates, or evidence of obstruction, uvula midline. Mucous membranes moist. Neck: Trachea midline, no thyromegaly or masses palpated, and no cervical lymphadenopathy. Supple, full range of motion without nuchal rigidity, or vertebral point tenderness. No Meningismus. Chest/axilla: Normal chest wall appearance and motion. Nontender with no deformity. No lesions are appreciated. Cardiovascular: Regular rate and rhythm with a normal S1 and S2. No gallops, murmurs, or rubs. Normal PMI, no JVD. No pulse deficits. Respiratory: Lungs have equal breath sounds bilaterally, clear to auscultation and percussion. No rales, rhonchi or wheezes noted. No increased work of breathing, no retractions or nasal flaring. Abdomen/GI: Soft, non-tender, with normal bowel sounds. No distension or tympany. No guarding or rebound. No evidence of tenderness throughout. Back: No spinal tenderness. No costovertebral tenderness. Full range of motion. Male : Normal genitalia with no discharge or lesions. Skin: Warm, dry with normal turgor. Normal color with no rashes, no lesions, and no evidence of cellulitis. Psych: Awake, alert, with orientation to person, place and time. Behavior, mood, and affect are within normal limits. 16:28 Musculoskeletal/extremity: ROM: full active range of motion, full passive range of motion, Circulation is intact in all extremities. the left arm and left leg Tingling of extremity. Compartment Syndrome exam of affected extremity: is normal. DVT Exam: no pain, no swelling, no tenderness, negative Homans' sign noted on exam, no appreciated bluish discoloration, no erythema, no increased warmth. Vital Signs: 15:38 BP 130 / 111; Pulse 92; Resp 16; Temp 98.0; Pulse Ox 96% on R/A; ph 16:15 BP 157 / 95; Pulse 80; Resp 18; Pulse Ox 98% on R/A; Weight 83 kg; ph 16:30 BP 152 / 89; Pulse 73; Resp 18; Pulse Ox 97% on R/A; ph NIH Stroke Scale Scores: 16:00 NIHSS Score: 1 ph 16:33 NIHSS Score: 1 alicja MDM: 16:13 Patient medically screened. alicja 16:28 Differential diagnosis: abnormal EKG, acute myocardial infarction, coronary artery alicja disease chest wall pain, CVA, TIA, stable angina, unstable angina. HEART Score: History: Slightly Suspicious (0), ECG: Normal (0), Age: > or = 65 years (2), Risk Factors: > or = 3 Risk factors for atherosclerotic disease (2), [Hypercholesterolemia] [Hypertension] [+ Family HX] Troponin: < or = 1 x Normal Limit (0). The patient was not given aspirin in the Emergency Department. Patient reports taking aspirin within the past 24 hours. The patient's deep vein thrombosis risk score was calculated as follows: Total Score: 0. This patient was found to be at low risk for a deep vein thrombosis by using the Well's assessment criteria. The patient's pulmonary embolism risk score was calculated as follows: Total Score: 0-2 points. This patient was found to be at low risk for a pulmonary embolism by using the Well's assessment criteria. NATTY Risk Score: TOTAL SCORE = 0. Data reviewed: vital signs, nurses notes, lab test result(s), EKG, radiologic studies, CT scan, plain films. Data interpreted: magistrate judge: rate is 82 beats/min, rhythm is regular, Pulse oximetry: on room air is 100 %. Test interpretation: by ED physician or midlevel provider: ECG, plain radiologic studies. Counseling: I had a detailed discussion with the patient and/or guardian regarding: the historical points, exam findings, and any diagnostic results supporting the discharge/admit diagnosis, lab results, radiology results, the need to transfer to another facility. 06/23 16:00 Order name: Basic Metabolic Panel; Complete Time: 17:17 06/23 16:00 Order name: CBC with Diff; Complete Time: 17:17 06/23 16:00 Order name: Protime (+inr); Complete Time: 17:17 ph 06/23 16:00 Order name: Ptt, Activated; Complete Time: 17:17 ph 06/23 16:03 Order name: Troponin HS; Complete Time: 17:17 iw 06/23 16:11 Order name: Glucose, Ancillary Testing; Complete Time: 16:14 EDMS 06/23 15:51 Order name: Ct Stroke Brain Wo Cont; Complete Time: 16:14 EDWI 06/23 16:00 Order name: Stroke CXR 1 View; Complete Time: 17:17 ph 06/23 16:24 Order name: CT Head Angio; Complete Time: 17:17 [facility] 06/23 16:24 Order name: CT Neck Angio; Complete Time: 17:17 [facility] 06/23 16:25 Order name: SARS-COV-2 RT PCR (Document "Date of Onset" if Symptomatic) [facility] 06/23 16:00 Order name: EKG; Complete Time: 16:01 06/23 16:00 Order name: Accucheck; Complete Time: 16:01 06/23 16:00 Order name: Cardiac monitoring; Complete Time: 16:01 ph 06/23 16:00 Order name: EKG - Nurse/Tech; Complete Time: 16:01 06/23 16:00 Order name: IV Saline Lock; Complete Time: 16:01 06/23 16:00 Order name: Labs collected and sent; Complete Time: 16:00 06/23 16:00 Order name: NPO; Complete Time: 16:00 06/23 16:00 Order name: O2 Per Protocol; Complete Time: 16:00 06/23 16:00 Order name: O2 Sat Monitoring; Complete Time: 16:00 ph Administered Medications: 16:25 Drug: NS 0.9% 1000 ml Route: IV; Rate: 1 bolus; Site: right antecubital; ph 17:15 Follow up: Response: No adverse reaction; IV Status: Completed infusion; IV Intake: ph 1000ml 16:25 Drug: foLIC Acid 1 mg Route: IVPB; Site: right antecubital; ph 16:30 Follow up: Response: No adverse reaction; IV Status: Completed infusion ph 16:30 Drug: ACTIvase (alteplase) {Co-Signature: ph (Moni Colin RN).} Route: IV jh6 Thrombolytics; Rate: calculated rate; Infused Over: 60 mins; 17:30 Follow up: Response: No adverse reaction ph 17:55 Drug: Labetalol 5 mg Route: IVP; Site: right antecubital; 6 18:28 Follow up: Response: Blood pressure is lowered 6 17:55 Drug: Tylenol 1000 mg Route: PO; 6 18:28 Follow up: Response: No adverse reaction [facility] 19:35 Not Given (Other Intervention Used): Pepcid (famotidine) 20 mg IVP once; dilute with 10 ph mL 0.9% NaCl; give over 2 minutes Disposition Summary: 06/23/21 16:38 Transfer Ordered Transfer Location: [facility] alicja Reason: Higher level of care alicja Condition: Fair alicja Problem: new alicja Symptoms: have improved alicja Accepting Physician: ELENA CURRAN(06/23/21 18:38) jh6 Diagnosis - Essential (primary) hypertension alicja - Cerebral infarction, unspecified alicja Forms: - Medication Reconciliation Form alicja - SBAR form alicja NIH Stroke Scale - NIH Stroke Score Date: 06/23/2021 Time: 16:00 Total Score = 1 1a. Level of Consciousness (LOC) - 0(Alert) 1b. Level of Consciousness (LOC) (Month \\T\\ Age) - 0(Both) 1c. LOC Commands (Open \\T\\ Closes Eyes/Contact Center Manager) - 0(Both) 2. Best Gaze (Lateral Gaze Paresis) - 0(Normal) 3. Visual Field Loss - 0(No visual loss) 4. Facial Palsy - 0(Normal) 5a. Left Arm: Motor (10-second hold) - 0(No drift) 5b. Right Arm: Motor (10-second hold) - 0(No drift) 6a. Left Leg: Motor (5-second hold - always test supine) - 0(No drift) 6b. Right Leg: Motor (5-second hold - always test supine) - 0(No drift) 7. Limb Ataxia (finger/nose \\T\\ heel/jarquin - test with eyes open) - 1(Present in one limb) 8. Sensory Loss (pinprick arms/legs/face) - 0(Normal) 9. Best Language: Aphasia (description/naming/reading) - 0(No aphasia) 10. Dysarthria (speech clarity - read or repeat words) - 0(Normal) 11. Extinction and Inattention (visual/tactile/auditory/spatial/personal) - 0(No abnormality) Initials: NIH Stroke Scale - NIH Stroke Score Date: 06/23/2021 Time: 16:33 Total Score = 1 1a. Level of Consciousness (LOC) - 0(Alert) 1b. Level of Consciousness (LOC) (Month \\T\\ Age) - 0(Both) 1c. LOC Commands (Open \\T\\ Closes Eyes/Contact Center Manager) - 0(Both) 2. Best Gaze (Lateral Gaze Paresis) - 0(Normal) 3. Visual Field Loss - 0(No visual loss) 4. Facial Palsy - 0(Normal) 5a. Left Arm: Motor (10-second hold) - 0(No drift) 5b. Right Arm: Motor (10-second hold) - 0(No drift) 6a. Left Leg: Motor (5-second hold - always test supine) - 0(No drift) 6b. Right Leg: Motor (5-second hold - always test supine) - 0(No drift) 7. Limb Ataxia (finger/nose \\T\\ heel/jarquin - test with eyes open) - 1(Present in one limb) 8. Sensory Loss (pinprick arms/legs/face) - 0(Normal) 9. Best Language: Aphasia (description/naming/reading) - 0(No aphasia) 10. Dysarthria (speech clarity - read or repeat words) - 0(Normal) 11. Extinction and Inattention (visual/tactile/auditory/spatial/personal) - 0(No abnormality) Initials: alicja Signatures: Dispatcher [employer] Heber Thakkar MD MD cha Williams, Irene, RN RN Moni Colin RN RN Mary Starks RN RN 6 Moni Colin RN ph Corrections: (The following items were deleted from the chart) 18:38 16:38 [facility] alicja [facility]
--- NOTE | 2021-06-23 16:38 | ER ---
Nurse's Notes [facility] Name: Chilo Hendricks Jr Age: 86 yrs Sex: Male : 1935 Arrival Date: 06/23/2021 Time: 15:37 Bed 8 Private MD: Ralph Li Diagnosis: Essential (primary) hypertension;Cerebral infarction, unspecified Presentation: 06/23 15:38 An acute neurological deficit is present. The patient has been moved to a treatment [facility] area. 15:39 Chief complaint: Patient states: left arm and left leg numbness, tingling and weakness iw started at 11 am today, symptoms are improving but not completely resolved. 15:39 Coronavirus screen: At this time, the client does not indicate any symptoms associated iw with coronavirus-19. Ebola Screen: Patient negative for fever greater than or equal to 101.5 degrees Fahrenheit, and additional compatible Ebola Virus Disease symptoms Patient denies exposure to infectious person. Patient denies travel to an Ebola-affected area in the 21 days before illness onset. No symptoms or risks identified at this time. 15:39 Method Of Arrival: Ambulatory iw 15:39 Acuity: JESUS 2 iw 15:39 Initial Sepsis Screen: Does the patient meet any 2 criteria? No. Patient's initial iw sepsis screen is negative. Does the patient have a suspected source of infection? No. Patient's initial sepsis screen is negative. Risk Assessment: Do you want to hurt yourself or someone else? Patient reports no desire to harm self or others. Onset of symptoms was June 23, 2021 at 12:00. Triage Assessment: 18:24 The onset of the patients symptoms was June 23, 2021 at 12:00. [facility] Stroke Activation: Symtpom onset >3 hours and < 6 hours Physician: Stroke Attending; Name: ; Notified At: ; Arrived At: Physician: Chief Stroke Resident; Name: ; Notified At: ; Arrived At: Physician: Stroke Resident; Name: ; Notified At: ; Arrived At: Physician: ED Attending; Name: Dr. Cabrera; Notified At: ; Arrived At: Physician: ED Resident; Name: ; Notified At: ; Arrived At: Historical: - Allergies: 16:01 No Known Allergies; iw - PMHx: 16:01 Myocardial infarction; iw - PSHx: 16:01 cardiac stent; iw - Immunization history:: Adult Immunizations unknown. - Social history:: Smoking status: Patient denies any tobacco usage or history of. Screenin:01 Abuse screen: Denies threats or abuse. Denies injuries from another. Nutritional ph screening: No deficits noted. Tuberculosis screening: No symptoms or risk factors identified. Fall Risk None identified. Assessment: 15:40 Pain: Pain began suddenly. jh6 15:45 Reassessment: Code stroke called overhead, pt taken to CT via stretcher by JERRY Roberson. ph 16:00 VAN Scoring: Arm Drift: Patients demonstrates NO arm weakness. Patient is VAN Negative. ph T-PA (Activase) Screening: Indications: Definite evidence of stroke, ischemic, embolic, or hypertensive: Yes. Treatment will start within 4.5 hours onset of symptoms: Yes. No evidence of intracranial hemorrhage or CT of head and no evidence of peripheral hemorrhage or recent CVA: Yes. Consent for thrombolytic therapy: Yes. 16:00 General: Appears in no apparent distress. comfortable, Behavior is calm, cooperative, ph appropriate for age, Denies fever, feeling ill. Pain: Denies pain. Neuro: Level of Consciousness is awake, alert, obeys commands, Oriented to person, place, time, situation, Facial symmetry appears normal, Pupils are PERRLA, Reports paresthesias in left arm and left leg. 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 Rhythm is regular. Respiratory: Airway is patent Respiratory effort is even, unlabored. GI: No signs and/or symptoms were reported involving the gastrointestinal system. Derm: Skin is intact, is healthy with good turgor, Skin is pink, warm \T\ dry. Musculoskeletal: Circulation, motion, and sensation intact. Range of motion: intact in all extremities. 16:25 General: pt and son spoke with MD Cabrera about possibility of stroke and the risks of jh6 TPA. Pt and son agree of receiving TPA and consent was signed. . 16:25 Pain: Denies pain. jh6 16:43 Reassessment: pt taken by stretcher for CT angio, accompanied by Inés EDWARDS. ph 17:40 Patient has been NPO before screening. The patient is alert, and able to follow [facility] commands. The patient does not exhibit difficulty understanding words. The patient is able to swallow own secretions with no drooling or need for suction. Patient tolerated one teaspoon of water. No drooling, immediate coughing, gurgling, or clearing of the throat was noted. The patient tolerated 90mL of water. No drooling, immediate coughing, gurgling, or clearing of the throat was noted. The patient passed the bedside swallow screening. Oral medications may be given as ordered. Contact Physician for further diet orders. Provider notified of bedside swallow screening results: Heber Cabrera MD. 18:12 General: pt reports feeling of pressure to frontal area. No change in mental status,B/P jh6 elevated Md Cabrera made aware and meds ordered. . Pain: Complains of pain in forehead Pain currently is 3 out of 10 on a pain scale. Vital Signs: 15:38 BP 130 / 111; Pulse 92; Resp 16; Temp 98.0; Pulse Ox 96% on R/A; ph 16:15 BP 157 / 95; Pulse 80; Resp 18; Pulse Ox 98% on R/A; Weight 83 kg; ph 16:30 BP 152 / 89; Pulse 73; Resp 18; Pulse Ox 97% on R/A; ph NIH Stroke Scale Scores: 16:00 NIHSS Score: 1 ph 16:33 NIHSS Score: 1 alicja ED Course: 15:30 Arm band placed on Patient placed in an exam room. ph 15:37 Patient arrived in ED. am2 15:40 Ralph Li is Private Physician. am2 15:52 Ct Stroke Brain Wo Cont In Process Unspecified. EDMS 15:59 Moni Colin, RN is Primary Nurse. ph 16:01 Triage completed. iw 16:02 Patient has correct armband on for positive identification. Placed in gown. Bed in low mh5 position. Call light in reach. Side rails up X 1. Adult w/ patient. Warm blanket given. Pillow given. nurse monitoring on. Pulse ox on. NIBP on. 16:02 Initial lab(s) drawn, by ED staff, sent to lab. EKG done, by ED staff, reviewed by noris Cabrera MD. Inserted saline lock: 20 gauge in left antecubital area, using aseptic technique. Blood collected. 16:06 Assisted to bedside commode. mh5 16:13 Heber Cabrera MD is Attending Physician. alicja 16:[address] Cabrera with Meghan Rosales Rn from the [facility]. 16:25 Inserted saline lock: 20 gauge in right antecubital area, using aseptic technique. ph 16:[address] Ortiz the neuro adjunct instructor in economics for [facility] with Dr. Cabrera for eb patient transfer consultation. 16:42 X-ray completed. Portable x-ray completed in exam room. Patient tolerated procedure mh1 well. 16:45 Stroke CXR 1 View In Process Unspecified. EDMS 16:49 administrative approval given by Meghan Rosales Rn/ patient has been accepted to [facility] neuro ICU [address] [place] [address] bed 7516/ Dr. Ortiz has accepted the patient in transfer/ report to be called to [phone]. 16:54 CT Head Angio In Process Unspecified. EDMS 16:54 CT Neck Angio In Process Unspecified. EDMS 17:01 Patient maintains SpO2 saturation greater than 95% on room air. ph 18:22 Patient transferred, IV remains in place. ph 18:24 No provider procedures requiring assistance completed. jh6 Administered Medications: 16:25 Drug: NS 0.9% 1000 ml Route: IV; Rate: 1 bolus; Site: right antecubital; ph 17:15 Follow up: Response: No adverse reaction; IV Status: Completed infusion; IV Intake: ph 1000ml 16:25 Drug: foLIC Acid 1 mg Route: IVPB; Site: right antecubital; ph 16:30 Follow up: Response: No adverse reaction; IV Status: Completed infusion ph 16:30 Drug: ACTIvase (alteplase) {Co-Signature: ph (Moni Colin RN).} Route: IV jh6 Thrombolytics; Rate: calculated rate; Infused Over: 60 mins; 17:30 Follow up: Response: No adverse reaction ph 17:55 Drug: Labetalol 5 mg Route: IVP; Site: right antecubital; jh6 18:28 Follow up: Response: Blood pressure is lowered jh6 17:55 Drug: Tylenol 1000 mg Route: PO; jh6 18:28 Follow up: Response: No adverse reaction jh6 19:35 Not Given (Other Intervention Used): Pepcid (famotidine) 20 mg IVP once; dilute with 10 ph mL 0.9% NaCl; give over 2 minutes Intake: 17:15 IV: 1000ml; Total: 1000ml. Outcome: 16:38 ER care complete, transfer ordered by alicja 18:22 Transferred by ground EMS to other acute care facility: [facility]. [facility] 18:22 Condition: stable 18:22 Instructed on the need for transfer. 18:38 Patient left the ED. [facility] NIH Stroke Scale - NIH Stroke Score Date: 06/23/2021 Time: 16:00 Total Score = 1 1a. Level of Consciousness (LOC) - 0(Alert) 1b. Level of Consciousness (LOC) (Month \T\ Age) - 0(Both) 1c. LOC Commands (Open \T\ Closes Eyes/Machine Tool Operator) - 0(Both) 2. Best Gaze (Lateral Gaze Paresis) - 0(Normal) 3. Visual Field Loss - 0(No visual loss) 4. Facial Palsy - 0(Normal) 5a. Left Arm: Motor (10-second hold) - 0(No drift) 5b. Right Arm: Motor (10-second hold) - 0(No drift) 6a. Left Leg: Motor (5-second hold - always test supine) - 0(No drift) 6b. Right Leg: Motor (5-second hold - always test supine) - 0(No drift) 7. Limb Ataxia (finger/nose \T\ heel/jarquin - test with eyes open) - 1(Present in one limb) 8. Sensory Loss (pinprick arms/legs/face) - 0(Normal) 9. Best Language: Aphasia (description/naming/reading) - 0(No aphasia) 10. Dysarthria (speech clarity - read or repeat words) - 0(Normal) 11. Extinction and Inattention (visual/tactile/auditory/spatial/personal) - 0(No abnormality) Initials: NIH Stroke Scale - NIH Stroke Score Date: 06/23/2021 Time: 16:33 Total Score = 1 1a. Level of Consciousness (LOC) - 0(Alert) 1b. Level of Consciousness (LOC) (Month \T\ Age) - 0(Both) 1c. LOC Commands (Open \T\ Closes Eyes/Machine Tool Operator) - 0(Both) 2. Best Gaze (Lateral Gaze Paresis) - 0(Normal) 3. Visual Field Loss - 0(No visual loss) 4. Facial Palsy - 0(Normal) 5a. Left Arm: Motor (10-second hold) - 0(No drift) 5b. Right Arm: Motor (10-second hold) - 0(No drift) 6a. Left Leg: Motor (5-second hold - always test supine) - 0(No drift) 6b. Right Leg: Motor (5-second hold - always test supine) - 0(No drift) 7. Limb Ataxia (finger/nose \T\ heel/jarquin - test with eyes open) - 1(Present in one limb) 8. Sensory Loss (pinprick arms/legs/face) - 0(Normal) 9. Best Language: Aphasia (description/naming/reading) - 0(No aphasia) 10. Dysarthria (speech clarity - read or repeat words) - 0(Normal) 11. Extinction and Inattention (visual/tactile/auditory/spatial/personal) - 0(No abnormality) Initials: alicja Signatures: Dispatcher [employer] EDHeber Robles MD MD cha Harvey, Martha 1 Karol Pulliam, JERRY EDWARDS Moni Colin RN RN ph Pat Guzman 5 Lamar Calderon 2 Bessie Cooper Jennifer RN RN 6 Moni Colin RN ph Corrections: (The following items were deleted from the chart) 15:59 15:48 Chief complaint: Patient states: left arm and left leg numbness, tingling iw and weakness started at 11 am today, symptoms are improving but not completely resolved 06/24 12:52 06/23 15:39 Onset of symptoms was June 23, 2021 at 11:00 [facility]
--- NOTE | 2021-06-23 17:06 | RAD REPORT ---
EXAM DESCRIPTION: CT - Head angio - 06/23/2021 4:52 pm CLINICAL HISTORY: TIA COMPARISON: <Comparisons> TECHNIQUE: CT angiography of the head was performed with MIPs. All CT scans are performed using dose optimization technique as appropriate and may include automated exposure control or mA/KV adjustment according to patient size. FINDINGS: Anterior circulation: No aneurysm or large vessel occlusion. No hemodynamically significant stenosis. No arteriovenous malf ormation identified. Posterior circulation: No aneurysm or large vessel occlusion. Critical stenosis of the left P2 segment of the posterior cere bral artery. This is a focal stenosis. High-grade focal stenosis of the right vertebral artery which is nondominant as it crosses the dura. No arteriovenous malformation identified. 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
--- NOTE | 2021-06-23 17:11 | RAD REPORT ---
EXAM DESCRIPTION: RAD - Chest Single View - 06/23/2021 4:43 pm CLINICAL HISTORY: s/s stroke COMPARISON: No comparisons FINDINGS: Lines: None. Lungs: No evidence of edema or pneumonia. Pleural: No significant pleural effusions or pneumothorax. Cardiac: The heart size is within normal limits. Bones: No acute fractures. Other: IMPRESSION: No acute cardiopulmonary disease.
--- NOTE | 2021-06-23 17:11 | RAD REPORT ---
EXAM DESCRIPTION: CT - Neck Angio - 06/23/2021 4:52 pm CLINICAL HISTORY: WEAKNESS COMPARISON: Ct Stroke Brain Wo Cont dated 06/23/2021No comparisons TECHNIQUE: CT angiography of the neck vessels was performed with MIPs. All CT scans are performed using dose optimization technique as appropriate and may include automated exposure control or mA/KV adjustment according to patient size. FINDINGS: A left aortic arch is identified with normal three vessel configuration of the great vesse ls. No significant flow abnormality is seen of the common carotid bilaterally. No significant stenosis is identified involving the cervical segments of both internal carotid arteri es. Mild less than 50% stenoses secondary to calcified noncalcified plaque at both carotid bifurcatio ns. The left vertebral artery is dominant. 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 Mild stenoses at both carotid bulbs.
[2021-06-23] MEDS ORDERED: LABETALOL HCL 100 MG/20 ML ONE (18:03)
[2021-06-23] MEDS ORDERED: ACETAMINOPHEN 500 MG TAB ONE (18:03)
[2021-06-23 19:25] VITALS: TEMP 98
[2021-06-23 19:27] VITALS: BP 152/89; O2SAT 97
--- NOTE | 2021-06-26 12:39 | EKG ---
Test Date: 2021-06-23 Test Time: 15:52:24 Tool Design Drafter: PALLAVI MEASUREMENT RESULTS: Intervals: Rate: 82 DE: 136 QRSD: 90 QT: 368 QTc: 429 [place]: P: 12 DE: 136 QRS: -25 T: -10 INTERPRETIVE STATEMENTS: Normal sinus rhythm Inferior infarct, age undetermined Possible Anterior infarct, age undetermined Abnormal ECG No previous ECG available for comparison Electronically Signed On 06-26-21 12:33:44 CDT by Pardeep Ireland
== END 2021-06-23 18:38 | disposition short-term general hospital (02) ==
LOC: ER 15:36
DX: I63.9 Cerebral infarction, unspecified (principal); I10 Essential (primary) hypertension; R29.701 NIHSS score 1; I25.2 Old myocardial infarction; Z95.818 Presence of other cardiac implants and grafts; Z20.822 Contact with and (suspected) exposure to COVID-19
CPT/HCPCS: 96361; 92977; 93005; 85025; 80048; 36415; 85610; 82947; 85730; 84484; 70496; 70498; 70450; 71045; 96375; 96374; 99285; U0003; Q9967; J2997; J7030

== ENCOUNTER 2021-07-19 10:12 | Emergency (ER) | payer MEDICARE ==
--- OUTSIDE RECORDS SUMMARY | 2021-07-19 10:15 | XMS REPORT | Clinical Summary ---
:1935 Author Organization [facility] MD Bobby [facility] Address [address] [place] [address] Care Team Providers Name Role Phone Destin [...] in situ (Primary Dx) 03/07/2021 Travel after 07/19/2020 Family History Medical History Relation Name Comments [...] Comments Blood Pressure 160/78 03/27/2021 9:32 AM CLINICAL NURSE MANAGER Pulse 67 03/27/2021 9:32 AM CLINICAL NURSE MANAGER Temperature 36.7 C (98.1 F) 03/27/2021 9:32 AM CLINICAL NURSE MANAGER Respiratory Rate 18 03/27/2021 9:32 AM CLINICAL NURSE MANAGER Oxygen Saturation 97% 03/27/2021 9:32 AM CLINICAL NURSE MANAGER Inhaled Oxygen Concentration - - Weight 84.3 kg (185 lb 13.6 oz) 03/27/2021 9:32 AM CLINICAL NURSE MANAGER Height 165.1 cm (5' 5") 03/27/2021 9:32 AM CLINICAL NURSE MANAGER Body Mass Index 30.93 03/27/2021 9:32 AM CLINICAL NURSE MANAGER Plan of Treatment Date Type Specialty Care Team Description 09/25/2021 Office Visit Dermatology Destin Persaud MD [address], [place] [address] (Wo rk) Health Maintenance Due Date Last Done Comments COVID-19 Vaccination (1) 01/07/1940 Procedures Procedure Name Priority Date/Time Associated Comments Diagnosis TMP HIV 1/2 AG&AB PATH Routine 03/07/2021 10:20 R esults for this INTERP AM CLINICAL NURSE MANAGER procedure are i n the results section. FRACTIONATED BILIRUBIN Now 03/07/2021 10:20 R esults for this AM CLINICAL NURSE MANAGER procedure are i n the results section. TOTAL PROTEIN Now 03/07/2021 10:20 Results fo r this AM CLINICAL NURSE MANAGER procedure are i n the results section. ASPARTATE Now 03/07/2021 10:20 Results for this AMINOTRANSFERASE AM CLINICAL NURSE MANAGER procedure a re in the results section. ALANINE AMINOTRANSFERASE Now 03/07/2021 10:20 Results for this AM CLINICAL NURSE MANAGER procedure are i n the results section. ALKALINE PHOSPHATASE Now 03/07/2021 10:20 Res ults for this AM CLINICAL NURSE MANAGER procedure are i n the results section. ALBUMIN LEVEL Now 03/07/2021 10:20 Results fo r this AM CLINICAL NURSE MANAGER procedure are i n the results section. CALCIUM LEVEL TOTAL Now 03/07/2021 10:20 Resu lts for this AM CLINICAL NURSE MANAGER procedure are i n the results section. .GLOMERULAR FILTRATION Now 03/07/2021 10:20 R esults for this RATE AM CLINICAL NURSE MANAGER procedure are i n the results section. SERUM CREATININE Now 03/07/2021 10:20 Results for this AM CLINICAL NURSE MANAGER procedure are i n the results section. ELECTROLYTE PANEL Now 03/07/2021 10:20 Result s for this AM CLINICAL NURSE MANAGER procedure are i n the results section. BLOOD UREA NITROGEN Now 03/07/2021 10:20 Resu lts for this AM CLINICAL NURSE MANAGER procedure are i n the results section. GLUCOSE LEVEL Now 03/07/2021 10:20 Results fo r this AM CLINICAL NURSE MANAGER procedure are i n the results section. MANUAL DIFFERENTIAL STAT 03/07/2021 10:20 Resu lts for this AM CLINICAL NURSE MANAGER procedure are i n the results section. Results CBC STAT 03/07/2021 10:20 Results for this AM CLINICAL NURSE MANAGER procedure are i n the results section. HIV-1/2 ANTIGEN AND Now 03/07/2021 10:20 Resu lts for this ANTIBODIES, FOURTH AM CLINICAL NURSE MANAGER procedure are in GENERATION the results section. PHOSPHORUS LEVEL Now 03/07/2021 10:20 Results for this AM CLINICAL NURSE MANAGER procedure are i n the results section. MAGNESIUM LEVEL Now 03/07/2021 10:20 Results for this AM CLINICAL NURSE MANAGER procedure are i n the results section. COMPREHENSIVE METABOLIC Now 03/07/2021 10:20 PANEL AM CLINICAL NURSE MANAGER COMPLETE BLOOD COUNT W/ Now 03/07/2021 10:20 DIFFERENTIAL AM CLINICAL NURSE MANAGER after 07/19/2020 Results TMP HIV 1/2 Ag&Ab Path Interp (03/07/2021 10:20 AM CLINICAL NURSE MANAGER) HIV 1/2 Ag&Ab Negative for HIV-1 antigen a nd HIV-1/HIV-2 antibodies. No laboratory evidence of HIV infection. If acute HIV infection is suspected, consider testing for HIV-1 RNA. ANDREIA GARCIA DONOR Interp Comment: CENTER CLAUDIO URRUTIA, Dictated by: CLAUDIO URRUTIA, Dictated Date/Time: 03.08.20 8:05 AM CLINICAL NURSE MANAGER Transcribed Date/Time: 03.08.2021 8:05 AM CLINICAL NURSE MANAGER Electronically Signed By: CLAUDIO URRUTIA, on 120 8:05 AM C Specimen Blood Performing Organization Address City[facility]/ZIP [facility] [place] e Number [facility] DONOR [address] [address] HIV-1/2 Antigen and Antibodies, Fourth Generation (03/07/2021 10:20 AM CLINICAL NURSE MANAGER) Pathologist [facility] HIV 1/2 Ag & Ab, Non Reactive Non Reactive [facility] DONOR 4th Gen Comment: CENTER Performed at: [facility] [place] [address] Specimen Blood Performing Organization Address City/[facility] Phon e Number [facility] DONOR [address] [address] .Serum Creatinine (03/07/2021 10:20 AM CLINICAL NURSE MANAGER) Pathologist [facility] Creatinine 1.12 0.67 - 1.17 mg/dL [facility] CANCER C ENTER Specimen Blood Performing Organization Address City[facility] Phon e Number [facility] CANCER Unless otherwise noted, [place] [address] CENTER all lab tests performed by: Division of Pathology and Laboratory Medicine [facility]5 [address] (ABNORMAL) .CBC (03/07/2021 10:20 AM CLINICAL NURSE MANAGER) [facility] WBC 5.3 4.0 - 11.0 [facility] K/uL [facility] CENTER RBC 4.71 4.50 - 6.00 [facility] M/[facility] CENTER Hgb 13.9 (L) 14.0 - 18.0 [facility] gm/dL [facility] Hct 42.5 40.0 - 54.0 % [facility] MCV 90 82 - 98 fL [facility] MCH 29.5 27.0 - 31.0 pg [facility] MCHC 32.7 31.0 - 36.0 [facility] gm/dL [facility] RDW-SD 42.2 35.1 - 46.3 fL [facility] RDW-CV 12.8 12.0 - 15.5 % [facility] Platelet count 211 140 - 440 K/uL [facility] MPV 9.5 4.0 - 10.4 fL [facility] INRBC 0.0 <=0.0 % [facility] Comment: CANCER CENTER The INRBC (instrument NRBC) value reflects the enumera tion of nucleated red blood cells contained in a 200uL samp le of whole blood analyzed by the instrument. This value may differ from the NRBC value reported in a manual differ ential, which is based on a 100 cell differential. Specimen Blood Performing Organization Address City/State/ZIP Code Phon e Number [facility] CANCER Unless otherwise noted, [place] [address] CENTER all lab tests performed by: Division of Pathology and Laboratory Medicine [address] (ABNORMAL) Glomerular Filtration Rate (03/07/2021 10:20 AM CLINICAL NURSE MANAGER) eGFR-AA 68 >=60 [facility] Comment: mL/min/1.73 [facility] Normal eGFR: >= 60 mL/min/1.73 m2 sq. [...] Kidney failure <15 eGFR-LOIS 59 (L) >=60 [facility] Comment: mL/min/1.73 [facility] Normal eGFR: >= 60 mL/min/1.73 m2 sq. [...] failure <15 Specimen Blood Performing Organization Address City[facility]/ZIP [facility] [place] Number [facility] CANCER Unless otherwise noted, [address] all lab tests performed by: Division of Pathology and Laboratory Medicine [address] [place] [address] Fractionated Bilirubin (03/07/2021 10:20 AM CLINICAL NURSE MANAGER) Pathologist [facility] Bili Total 0.3 <=1.2 mg/dL [facility] Comment: CANCER CENTER Indocyanine Green (ICG) may cause falsely elevated bilirubin results. Total and direct bilirubin must not be measured from samples containing indocyanine green. False elevation of total mike irubin can be seen in patients with IgG concentrations above 28 g/L. Bili Direct <0.2Comment: <=0.3 mg/dL [facility] Indocyanine Green [facility] (ICG) may cause falsely elevated bilirubin results. Total and direct bilirubin must not be measured from samples containing indocyanine green. Bili Indirect See NoteComment: 0.0 - 0.9 [facility] Unable to calculate mg/dL [facility] Indirect Bilirubin result due to some parameters are outside reportable range Specimen Blood Performing Organization Address City/[facility] Phon e Number [facility] CANCER Unless otherwise noted, [address] all lab tests performed by: Division of Pathology and Laboratory Medicine [address] [place] [address] (ABNORMAL) Differential (03/07/2021 10:20 AM CLINICAL NURSE MANAGER) Pathologist [facility] Neutrophil % 58.0 42.0 - 66.0 % [facility] Lymphocyte % 30.6 24.0 - 44.0 % [facility] Monocyte % 8.7 (H) 2.0 - 7.0 % [facility] Eosinophil % 1.9 1.0 - 4.0 % [facility] Basophil % 0.6 0.0 - 1.0 % [facility] IGRE % 0.2Comment: IGRE % 0.0 - 0.4 % [facility] count includes [facility] Metamyelocytes, Myelocytes, and Promyelocytes. Neutrophil Abs 3.07 1.70 - 7.30 [facility] Lymphocyte Abs 1.62 1.00 - 4.80 [facility] Monocyte Abs 0.46 0.08 - 0.70 [facility] Eosinophil Abs 0.10 0.04 - 0.40 [facility] Basophil Abs 0.03 0.00 - 0.10 [facility] IG Abs 0.01 0.00 - 0.04 [facility] Specimen Blood Performing Organization Address City/State/ZIP Code Phon e Number [facility] Unless otherwise noted, [address] all lab tests performed by: Division of Pathology and Laboratory Medicine [address] [place] BUN (03/07/2021 10:20 AM CLINICAL NURSE MANAGER) Pathologist Sig nature BUN 14 6 - 23 mg/dL [facility] Specimen Blood Performing Organization Address City[facility]/ZIP [facility] [place] Number [facility] CANCER Unless otherwise noted, [address] all lab tests performed by: Division of Pathology and Laboratory Medicine [address] [place] ALT (03/07/2021 10:20 AM CLINICAL NURSE MANAGER) Pathologist Sig nature ALT 9 <=41 U/L [facility] Specimen Blood Performing Organization Address City/[facility]/ZIP Code Phon e Number [facility] CANCER Unless otherwise noted, [address] all lab tests performed by: Division of Pathology and Laboratory Medicine [address] [place] Aspartate Aminotransferase (03/07/2021 10:20 AM CLINICAL NURSE MANAGER) Pathologist Sig nature AST 13 <=40 U/L [facility] Specimen Blood Performing Organization Address City/[facility]/ZIP Code Phon e Number [facility] CANCER Unless otherwise noted, [address] all lab tests performed by: Division of Pathology and Laboratory Medicine [address] [place] Total Protein (03/07/2021 10:20 AM CLINICAL NURSE MANAGER) Pathologist Sig nature Total Protein 7.5 6.4 - 8.3 g/dL [facility] TER Specimen Blood Performing Organization Address City[facility]/ZIP [facility] [place] Number [facility] CANCER Unless otherwise noted, [address] all lab tests performed by: Division of Pathology and Laboratory Medicine [address] [place] Phosphorus Level (03/07/2021 10:20 AM CLINICAL NURSE MANAGER) Pathologist Sig nature Phosphorus 2.8 2.5 - 4.5 mg/dL [facility] TER Specimen Blood Performing Organization Address [facility] Phon e Number [facility] CANCER Unless otherwise noted, [address] all lab tests performed by: Division of Pathology and Laboratory Medicine [address] [place] Alkaline Phosphatase (03/07/2021 10:20 AM CLINICAL NURSE MANAGER) Pathologist Sig nature Alk Phos 91 40 - 129 U/L [facility] Specimen Blood Performing Organization Address City/[facility] Phon e Number [facility] Unless otherwise noted, [address] all lab tests performed by: Division of Pathology and Laboratory Medicine [address] [place] Magnesium Level (03/07/2021 10:20 AM CLINICAL NURSE MANAGER) Pathologist Sig nature Magnesium 2.2 1.6 - 2.6 mg/dL [facility] TER Specimen Blood Performing Organization Address [facility] Phon e Number [facility] Unless otherwise noted, [address] all lab tests performed by: Division of Pathology and Laboratory Medicine [address] [place] (ABNORMAL) Glucose Level (03/07/2021 10:20 AM CLINICAL NURSE MANAGER) Glucose Level 100 (H) 70 - 99 mg/dL [facility] Comment: CANCER CENTER Effective 10/25/15, the gluco se reference intervals have been updated based on [place] [employer] guidelines (Standards of Medical Care in Diabetes 2016. Diabetes Care 2016; 39: S13-S22). Fasting blood glucose: Normal: 70-99 mg/dL Impaired fasting glucose (in creased risk for diabetes or pre-diabetes): 100- 125 mg/dL Diabetes mellitus: >/=126 mg/dL Random blood glucose: Normal: 70-199 mg/dL Note: Random glucose >100 mg/dL is assoc iated with increased risk for diabetes Specimen Blood Performing Organization Address [facility] Phon e Number [facility] Unless otherwise noted, [address] all lab tests performed by: Division of Pathology and Laboratory Medicine [address] [place] Calcium Level (03/07/2021 10:20 AM CLINICAL NURSE MANAGER) Pathologist Sig nature Calcium Lvl 9.6 8.4 - 10.2 mg/dL [facility] CE NTER Specimen Blood Performing Organization Address City/[facility]/ZIP Code Phon e Number [facility] CANCER Unless otherwise noted, [address] all lab tests performed by: Division of Pathology and Laboratory Medicine [address] [place] [address] Albumin Level (03/07/2021 10:20 AM CLINICAL NURSE MANAGER) Pathologist Sig nature Albumin Lvl 4.8 3.5 - 5.2 gm/dL [facility] TER Specimen Blood Performing Organization Address City/[facility] Phon e Number [facility] CANCER Unless otherwise noted, [address] all lab tests performed by: Division of Pathology and Laboratory Medicine [address] [place] [address] Electrolyte Panel (03/07/2021 10:20 AM CLINICAL NURSE MANAGER) Pathologist Sig nature Sodium Lvl 141 136 - 145 mEq/L [facility] Potassium Lvl 4.4 3.5 - 5.1 mEq/L [facility] Chloride 103 98 - 107 mEq/L [facility] CO2 27 22 - 29 mEq/L [facility] Anion Gap 11 4 - 14 mEq/L [facility] Specimen Blood Performing Organization Address City/[facility] Phon e Number [facility] CANCER Unless otherwise noted, [address] all lab tests performed by: Division of Pathology and Laboratory Medicine [address] [place] [address] [place] after 07/19/2020 Insurance Payer Benefit Plan / Subscriber ID Effective Dates Phone Addre ss Type Group HUMANA HUMANA CHOICE [id number] 2021-Prese [address] [address] Medicare [place] [address] Care Teams Spray Gun Repairer Helper Relationship Specialty Start Date End Date Destin Persaud MD PCP - General Dermatology 03/27/[address] [place] [id number]
--- OUTSIDE RECORDS SUMMARY | 2021-07-19 10:16 | XMS REPORT | Continuity of Care Document ---
:1935 Author Organization [facility] t Address [address] [place] [address] Care Team Providers Name Role Phone [phone] Primary Care Physician Unavailable Yolanda Li Attending Clinician Unavailable SYSTEM, PROVIDER NOT IN Attending Clinician Unavailable KIZZY LEYVA Attending Clinician Unavailable MARIELA RIVAS Attending Clinician Unavailable Theodore EDWARDS Attending Clinician Unavailable CORI Attending Clinician Unavailable Coir PERSAUD Attending Clinician BALTAZAR Attending Clinician Unavailable Baltazar PERSAUD Attending Clinician MARIELA RIVAS Admitting Clinician Unavailable Payers Payer Name Policy Type Policy Effective Date Expiration Date Sour ce Number DocuTAP MGD [id number] 2021 [facility] 00:00:00 DocuTAP [id number] 2021 (MEDICARE 00:00:00 REPLACEMENT HMO) HUMANA [id number] 2021 [facility] MED[facility]ARE [id number] 1-Present[address] [place] [id number] Problems This patient has no known problems. Allergies, Adverse Reactions, Alerts Allergy Allergy Status Severity Reaction(s) Onset Inactive Treating Comm ents Source Name Type Date Date Clinician NO KNOWN Allergy Active [facility] ALL[facility]GIE S Family History Family Member Diagnosis Comments Start Date Stop Date Source Natural son Brain cancer MD Cabrera Social History Social Habit Start Date Stop Date Quantity Comments Source History [facility] MD Cabrera Alcohol Std Drinks History [facility] MD Cabrera Alcohol Binge History [facility] MD Cabrera Alcohol Comment Tobacco use and 2021-03-27 2021-03-27 Smokeless tobacco MD Cabrera exposure 00:00:00 00:00:00 non-user Alcohol intake 2021-03-27 2021-03-27 Lifetime MD Dillard n 00:00:00 00:00:00 non-drinker (finding) History [facility] 2021-03-27 2021-03-27 1 MD Cabrera Alcohol Frequency 00:00:00 00:00:00 Sex [birth year] At [birth year] MD Levy on 00:00:00 00:00:00 Smoking Status Start Date Stop Date Source Never smoked tobacco MD Cabrera Medications This patient has no known medications. Vital Signs Vital Name Observation Time Observation Value Comments Source HEIGHT 2021-06-23 20:00:00 170.2 cm WEIGHT 2021-06-23 20:00:00 78.2 kg HEIGHT 2021-06-23 20:00:00 170.2 cm WEIGHT 2021-06-23 20:00:00 78.2 kg Systolic blood pressure 2021-03-27 15:32:13 160 mm[Hg] [...] Procedure Date / Time Performed Performing Clinician [facility] e COMPREHENSIVE METABOLIC PANEL 2021-03-07 16:20:00 Pat Leonard MD MAGNESIUM LEVEL 2021-03-07 16:20:00 Pat Leonard MD PHOSPHORUS LEVEL 2021-03-07 16:20:00 Pat Leonard MD HIV-1/2 ANTIGEN AND 2021-03-07 16:20:00 Pat Leonard ANTIBODIES, FOURTH GENERATION Results CBC 2021-03-07 16:20:00 Pat Leonard MD MANUAL DIFFERENTIAL 2021-03-07 16:20:00 Pat Leonard GLUCOSE LEVEL 2021-03-07 16:20:00 Pat Leonard MD BLOOD UREA NITROGEN 2021-03-07 16:20:00 Pat Leonard ELECTROLYTE PANEL 2021-03-07 16:20:00 Pat Leonard MD SERUM CREATININE 2021-03-07 16:20:00 Pat Leonard MD .GLOMERULAR FILTRATION RATE 2021-03-07 16:20:00 Juan Leonard [...] PATH INTERP 2021-03-07 16:20:00 Pat Leonard MD COMPLETE BLOOD COUNT W/ 2021-03-07 16:20:00 Pat Leonard MD DIFFERENTIAL Plan of Care Planned Activity Planned Date Details Comments Source Future Scheduled Test 1940-01-07 00:00:00 COVID-19 Vaccination MD Cabrera (1) [code = COVID-19 Vaccination (1)] Encounters Start End Encounter Admission Attending Care Care Encounter Source Date/Time Date/Time Type Type Clinicians Facility Department ID 2021-06-25 Outpatient Li, STLMLC STLMLC [id number] [facility] 14:10:03 [facility] 2021-05-11 Outpatient Li, STLMLC STLMLC [id number] [facility] 10:00:03 [facility] 2021-05-03 Outpatient JORGE LUIS CHENG MDA [id number] 11:28:47 PROVIDER Camvanessa arzola 2021-06-27 2021-06-27 ambulatory [facility]LMLC [facility] [id number] [facility] 2021-06-27 2021-06-27 ambulatory [facility]LMLC [facility] [id number] [facility] 2021-06-23 2021-06-25 Inpatient ER GIOVANA LEYVA Neuro ICU [id number] [facility] 19:26:00 13:47:00 CURTIS 2021-06-23 2021-06-23 [place]patient [place] [id number] [facility] 00:00:00 23:59:00 Giselle Medicin e 2021-06-20 2021-06-20 ambulatory STLMLC STLMLC [id number] [facility] 2021-05-16 2021-05-16 Outpatient DMG DMG [id number] [facility] 09:00:00 09:00:00 [id number] [facility] 2021-05-11 2021-05-11 ambulatory STLMLC STLMLC [id number] [facility] 2021-03-27 2021-03-27 Outpatient KAELYN SALCIDO MDA MDA [id number] 09:24:05 10:23:37 TIAGO arzola 2021-03-27 2021-03-[address] [facility] [id number] 08:52:08 08:52:14 Cam arzola 2021-03-07 2021-03-07 Emergency UR BALTAZAR [facility] Emergency [id number] 10:11:00 12:25:00 BESIM Cam arzola Results Test Description Test Time Test Comments Results Result Comments Source BASIC METABOLIC PANEL 2021-06-25 05:53:35 Test Item Value Reference Range Interpretation Comme nts SODIUM (BEAKER) (test code 137 meq/L 136-145 = 381) POTASSIUM (BEAKER) (test 4.1 meq/L 3.5-5.1 Spe cimen slightly code = 379) hemolyzed CHLORIDE (BEAKER) (test 105 meq/L 98-107 code = 382) CO2 (BEAKER) (test code = 25 meq/L 22-29 355) BLOOD UREA NITROGEN 12 mg/dL 7-21 (BEAKER) (test code = 354) CREATININE (BEAKER) (test 0.77 mg/dL 0.57-1.25 Sp ecimen slightly code = 358) hemolyzed GLUCOSE RANDOM (BEAKER) 95 mg/dL 70-105 (test code = 652) CALCIUM (BEAKER) (test code 8.7 mg/dL 8.4-10.2 = 697) EGFR (BEAKER) (test code = 96 mL/min/1.73 sq m ESTIMATED GFR IS NOT 1092) ACCURATE CRE ATININE CLEARANCE IN AL EDICTING GLOMERULAR FILT RATION RATE. ESTIMATED GFR IS NOT APPLICABLE FOR DIALYSIS PATIENTS. Hay Chopper ID - JESSICA MCBC W/PLT COUNT & AUTO [id number] 05:03:29 Test Item Value Reference Range Interpretation Comments WHITE BLOOD CELL COUNT (BEAKER) 6.1 K/ L 3.5-10.5 (test code = 775) RED BLOOD CELL COUNT (BEAKER) 4.36 M/ L 4.63-6.08 L (test code = 761) HEMOGLOBIN (BEAKER) (test code = 12.6 GM/DL 13.7-17.5 L 410) HEMATOCRIT (BEAKER) (test code = 39.4 % 40.1-51.0 L 411) MEAN CORPUSCULAR VOLUME (BEAKER) 90.4 fL 79.0-92.2 (test code = 753) MEAN CORPUSCULAR HEMOGLOBIN 28.9 pg 25.7-32.2 (BEAKER) (test code = 751) MEAN CORPUSCULAR HEMOGLOBIN CONC 32.0 GM/DL 32.3-36.5 L (BEAKER) (test code = 752) RED CELL DISTRIBUTION WIDTH 13.2 % 11.6-14.4 (BEAKER) (test code = 412) PLATELET COUNT (BEAKER) (test 198 K/CU MM 150-450 code = 756) MEAN PLATELET VOLUME (BEAKER) 9.6 fL 9.4-12.4 (test code = 754) NUCLEATED RED BLOOD CELLS 0 /100 WBC 0-0 (BEAKER) (test code = 413) NEUTROPHILS RELATIVE PERCENT 58 % (BEAKER) (test code = 429) LYMPHOCYTES RELATIVE PERCENT 29 % (BEAKER) (test code = 430) MONOCYTES RELATIVE PERCENT 10 % (BEAKER) (test code = 431) EOSINOPHILS RELATIVE PERCENT 3 % (BEAKER) (test code = 432) BASOPHILS RELATIVE PERCENT 1 % (BEAKER) (test code = 437) NEUTROPHILS ABSOLUTE COUNT 3.56 K/ L 1.78-5.38 (BEAKER) (test code = 670) LYMPHOCYTES ABSOLUTE COUNT 1.74 K/ L 1.32-3.57 (BEAKER) (test code = 414) MONOCYTES ABSOLUTE COUNT (BEAKER) 0.58 K/ L 0.30-0.82 (test code = 415) EOSINOPHILS ABSOLUTE COUNT 0.18 K/ L 0.04-0.54 (BEAKER) (test code = 416) BASOPHILS ABSOLUTE COUNT (BEAKER) 0.03 K/ L 0.01-0.08 (test code = 417) IMMATURE GRANULOCYTES-RELATIVE 0 % 0-1 PERCENT (BEAKER) (test code = 2801) MR, BRAIN, WITHOUT [id number] 14:58:00Unlisted Reason for Exam - Click Yes and Enter Reason Below->No [facility] 1935 Sex: MFINAL REPORT MR, BRAIN, WITHOUT CONTRAST INDICATION: Stroke, follow up TECHNIQUE: Multiplanar, multisequence MR imaging of the brain was obtained. COMPARISON: None FINDINGS:Brain parenchyma is normal in morphology. 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 No restricted diffusion to suggest recent ischemic insult. No abnormal susceptibility. Scattered T2/FLAIR hyperintense foci within the periventricular and subcortical white matter are nonspecific, however, statistically represent chronic microvascular ischemic changes. No hydrocephalus. Orbits are within normal limits. No obstructive paranasal sinus disease. IMPRESSION: No acute intracranial findings Signed: Mecca [facility] Verified Date/Time: 06/24/2021 14:58:04 SENSITIVITY TROPONIN [id number] 10:55:23 Test Item Value Reference Range Interpretation Comments HIGH SENSITIVITY 4 pg/ml See_Comment [Automated message] TROPONIN I (test code = The system which [id number]) generated this result transmitted ref erence range: <=35. Th e reference range was not used to interpr et this result as normal/abnormal . Hay Chopper ID - DBThe FLOORWORKER STAT High Sensitivity Troponin-I results should be used in conjunctionwith other diagnostic information such as ECG, clinical observations and information, and patient symptoms to aid in the diagnosis of [place].HEMOGLOBIN [id number] 08:46:58 Test Item Value Reference Range Interpretation Comments HEMOGLOBIN A1C 5.5 % See_Comment [Automated m essage] ELECTROPHORESIS (BEAKER) The system which (test code = 3811) generated this result transmitted ref erence range: <=5.6%. The reference range was not used to int erpret this result as normal/abnormal . "The A1c is measured using a NGSP-certified method. HbA1c value equal to or greater than 6.5% as thediagnosis cutoff for diabetes. An HbA1c value of 5.7- 6.4% indicates increased risk for diabetes (prediabetes)."Hay Chopper ID - ADMT4, [id number] 22:53:35 Test Item Value Reference Range Interpretation Comments FREE T4 (BEAKER) (test code = 655) 0.93 ng/dL 0.70-1.48 Hay Chopper ID - DBTSH/FREE T4 IF [id number] 21:45:12 Test Item Value Reference Range Interpretation Comments THYROID STIMULATING HORMONE 9.599 uIU/mL 0.350-4.940 H (BEAKER) (test code = 772) Hay Chopper ID - DBVITAMIN B12 AND [id number] 21:43:08 Test Item Value Reference Range Interpretation Comments VITAMIN B12 525 pg/mL 213-816 (BEAKER) (test code = 774) FOLATE (BEAKER) 14.90 ng/mL See_Comment [Automated message] (test code = 362) The system which generated this result transmitted ref erence range: >=7.00. The reference range was not used to interpr et this result as normal/abnormal . Hay Chopper ID - DBHIGH SENSITIVITY TROPONIN [id number] 21:13:43 Test Item Value Reference Range Interpretation Comments HIGH SENSITIVITY 5 pg/ml See_Comment [Automated message] TROPONIN I (test code = The system which [id number]) generated this result transmitted ref erence range: <=35. Th e reference range was not used to interpr et this result as normal/abnormal . Hay Chopper ID - DBThe FLOORWORKER STAT High Sensitivity Troponin-I results should be used in conjunctionwith other diagnostic information such as ECG, clinical observations and information, and patient symptoms to aid in the diagnosis of [place].[id number] 21:07:23 Test Item Value Reference Range Interpretation Comments PHOSPHORUS (BEAKER) (test code = 3.5 mg/dL 2.3-4.7 604) Hay Chopper ID - DBLIPID [id number] 21:07:23 Test Item Value Reference Range Interpretation Comments TRIGLYCERIDES (BEAKER) (test code = 224 mg/dL 540) CHOLESTEROL (BEAKER) (test code = 258 mg/dL 631) HDL CHOLESTEROL (BEAKER) (test code 40 mg/dL = 976) LDL CHOLESTEROL CALCULATED (BEAKER) 173 mg/dL (test code = 633) Triglyceride Reference Range: Low Risk <150 Borderline 150-199 High Risk 200-499 Very High Risk >=500Cholesterol Reference Range: Low Risk <200 Borderline 200-239 High Risk >240HDL Cholesterol Reference Range: Low Risk >=60 High Risk <40LDL Cholesterol Reference Range: Optimal <100 Near Optimal 100-129 Borderline 130-159 High 160-189 Very High >=190 Hay Chopper ID - [id number] 21:07:22 Test Item Value Reference Range Interpretation Comments MAGNESIUM (BEAKER) (test code = 1.9 mg/dL 1.6-2.6 627) Hay Chopper ID - DBCOMPREHENSIVE METABOLIC [id number] 21:07:22 Test Item Value Reference Range Interpretation Comments TOTAL PROTEIN 6.4 gm/dL 6.0-8.3 (BEAKER) (test code = 770) ALBUMIN (BEAKER) 3.9 g/dL 3.5-5.0 (test code = 1145) ALKALINE PHOSPHATASE 69 U/L 40-150 (BEAKER) (test code = 346) BILIRUBIN TOTAL 0.4 mg/dL 0.2-1.2 (BEAKER) (test code = 377) SODIUM (BEAKER) (test 138 meq/L 136-145 code = 381) POTASSIUM (BEAKER) 4.0 meq/L 3.5-5.1 (test code = 379) CHLORIDE (BEAKER) 103 meq/L 98-107 (test code = 382) CO2 (BEAKER) (test 28 meq/L 22-29 code = 355) BLOOD UREA NITROGEN 13 mg/dL 7-21 (BEAKER) (test code = 354) CREATININE (BEAKER) 0.80 mg/dL 0.57-1.25 (test code = 358) GLUCOSE RANDOM 95 mg/dL 70-105 (BEAKER) (test code = 652) CALCIUM (BEAKER) 8.8 mg/dL 8.4-10.2 (test code = 697) AST (SGOT) (BEAKER) 14 U/L 5-34 (test code = 353) ALT (SGPT) (BEAKER) 10 U/L 6-55 (test code = 347) EGFR (BEAKER) (test 92 mL/min/1.73 ESTIMA NISH GFR IS code = 1092) sq m NOT ACCURATE CREATININE CLEARANCE IN PREDICTING GLOMERULAR FILTRATION RATE . ESTIMATED GFR I S NOT APPLICABLE FOR DIALYSIS PATIEN TS. Hay Chopper ID - DBCALCIUM, [id number] 20:55:01 Test Item Value Reference Range Interpretation Comments CALCIUM IONIZED (BEAKER) (test 1.13 mmol/L 1.12-1.27 code = 698) PH, BLOOD (BEAKER) (test code = 7.38 1810) CBC W/PLT COUNT & AUTO [id number] 20:50:01 Test Item Value Reference Range Interpretation Comments WHITE BLOOD CELL COUNT (BEAKER) 7.1 K/ L 3.5-10.5 (test code = 775) RED BLOOD CELL COUNT (BEAKER) 4.22 M/ L 4.63-6.08 L (test code = 761) HEMOGLOBIN (BEAKER) (test code = 12.5 GM/DL 13.7-17.5 L 410) HEMATOCRIT (BEAKER) (test code = 37.6 % 40.1-51.0 L 411) MEAN CORPUSCULAR VOLUME (BEAKER) 89.1 fL 79.0-92.2 (test code = 753) MEAN CORPUSCULAR HEMOGLOBIN 29.6 pg 25.7-32.2 (BEAKER) (test code = 751) MEAN CORPUSCULAR HEMOGLOBIN CONC 33.2 GM/DL 32.3-36.5 (BEAKER) (test code = 752) RED CELL DISTRIBUTION WIDTH 13.3 % 11.6-14.4 (BEAKER) (test code = 412) PLATELET COUNT (BEAKER) (test 196 K/CU MM 150-450 code = 756) MEAN PLATELET VOLUME (BEAKER) 9.4 fL 9.4-12.4 (test code = 754) NUCLEATED RED BLOOD CELLS 0 /100 WBC 0-0 (BEAKER) (test code = 413) NEUTROPHILS RELATIVE PERCENT 60 % (BEAKER) (test code = 429) LYMPHOCYTES RELATIVE PERCENT 29 % (BEAKER) (test code = 430) MONOCYTES RELATIVE PERCENT 8 % (BEAKER) (test code = 431) EOSINOPHILS RELATIVE PERCENT 2 % (BEAKER) (test code = 432) BASOPHILS RELATIVE PERCENT 1 % (BEAKER) (test code = 437) NEUTROPHILS ABSOLUTE COUNT 4.27 K/ L 1.78-5.38 (BEAKER) (test code = 670) LYMPHOCYTES ABSOLUTE COUNT 2.09 K/ L 1.32-3.57 (BEAKER) (test code = 414) MONOCYTES ABSOLUTE COUNT (BEAKER) 0.55 K/ L 0.30-0.82 (test code = 415) EOSINOPHILS ABSOLUTE COUNT 0.14 K/ L 0.04-0.54 (BEAKER) (test code = 416) BASOPHILS ABSOLUTE COUNT (BEAKER) 0.04 K/ L 0.01-0.08 (test code = 417) IMMATURE GRANULOCYTES-RELATIVE 0 % 0-1 PERCENT (BEAKER) (test code = 2801) TMP HIV 1/2 Ag&Ab Path [id number] 14:05:56 Test Item Value Reference Range Interpretation Comments HIV 1/2 Ag&Ab Negative for HIV-1 Interp (test antigen and code = 9394) HIV-1/HIV-2 ALLENNAND O antibodies. No GHADA,Dict ated by: laboratory CLAUDIO evidence of HIV Katerina URRUTIA tated infection. If Date/Time: acute HIV 8:05 AM LICENSED CLINICAL SOCIAL WORKER infection is Transcribed Kt e/Time: suspected, 03.08.2021 8:05 AM consider testing CSTElectron ically for HIV-1 RNA. Signed By: LETICIA URRUTIA on 03.08.2021 8:05 AM Salima CabreraHIV-1/2 Antigen and Antibodies, Fourth [id number] 05:33:43 Test Item Value Reference Range Interpretation Comments HIV 1/2 Ag & Ab, Non Reactive Non Reactive Performed a t: 4th Gen (test code Rick Blood Donor = 9280) [id number] [place], [place] [address] MD CabreraFractionated [id number] 17:22:37 Test Item Value Reference Range Interpretation [...] 28 g/L. [Automate d message] The system whic h generated this result transmitted ref erence range: [...] are outside rep ortable range MD CabreraElectrolyte [id number] 17:22:36 Test Item Value Reference Range Interpretation Comments Sodium Lvl (test code = 141 See_Comment [Au tomated message] The 7319) system which ge nerated this result tra nsmitted reference range : 136 - 145 mEq/L. The reference range was not u sed to interpret this result as normal/abnormal . Potassium Lvl (test 4.4 See_Comment [Automa nish message] The code = 6854) system which ge nerated this result tra nsmitted reference range : 3.5 - 5.1 mEq/L. The reference range was not u sed to interpret this result as normal/abnormal . Chloride (test code = 103 See_Comment [Auto mated message] The 9914) system which ge nerated this result tra [...] = 11 See_Comment [Aut omated message] The 5163) system which ge nerated this result tra nsmitted reference range : 4 - 14 mEq/L. The refe rence range was not u sed to interpret this result as normal/abnormal . MD CabreraPhosphorus [id number] 17:22:33 Test Item Value Reference Range Interpretation Comments Phosphorus (test code = 6817) 2.8 mg/dL 2.5-4.5 MD CabreraGlomerular Filtration [id number] 17:22:32 Test Item Value Reference Range Interpretation [...] According to th e National Kidney Foundation's dney Disease Outcome Quality Initiat yonny (KDOQI) classif ication and 2012 Kidney Disease Improvi ng Global Outcomes (KDIGO) Clinica l Practice Guidel ine, the stage of CK D should be categ orized based on estima nish GFR. Stage Desc ription GFR mL/mi n/1.73 m21 Normal or h igh GFR >=902 Mildly decreased GFR 60-893a M ildly to moderately decreased GFR 45-593b Moderat jason to severely decrea sed GFR 30-444 Elham rely decreased GFR 15-295 Kidney f ailure <15 [Auto mated message] The sy stem which generated this result transmit nish reference range : >=60 mL/min/1.73 sq. m. The reference range was not used to int erpret this result as normal/abnormal . eGFR-LOIS (test code = 59 See_Comment L Normal eGFR: >= 60 8063) mL/min/1.73 m2N ote: The eGFR is hugo culated using the CKD-E PI equation. The e GFR declines with a ge. eGFR <60 mL/min /1.73 m2 is considere d as "decreased". Th is equation should only be used for pat ients 18 and older. According to th e National Kidney Foundation's dney Disease Outcome Quality Initiat yonny (KDOQI) classif ication and 2012 Kidney Disease Improvi ng Global Outcomes (KDIGO) Clinica l Practice Guidel ine, the stage of CK D should be categ orized based on estima nish GFR. Stage Desc ription GFR mL/mi n/1.73 m21 Normal or h igh GFR >=902 Mildly decreased GFR 60-893a M ildly to moderately decreased GFR 45-593b Moderat jason to severely decrea sed GFR 30-444 Elham rely decreased GFR 15-295 Kidney f ailure <15 [Auto mated message] The sy stem which generated this result transmit nish reference range : >=60 mL/min/1.73 sq. m. The reference range was not used to int erpret this result as normal/abnormal . Lab Interpretation Abnormal (test code = 31052-5) MD CabreraCalcium [id number] 17:22:31 Test Item Value Reference Range Interpretation Comments Calcium Lvl (test code = 5258) 9.6 mg/dL 8.4-10.2 MD CabreraTotal [id number] 17:22:30 Test Item Value Reference Range Interpretation Comments Total Protein (test code = 7649) 7.5 g/dL 6.4-8.3 MD CabreraAlbumin [id number] 17:22:29 Test Item Value Reference Range Interpretation Comments Albumin Lvl (test code 4.8 See_Comment [Aut omated message] The = 3064) system which [employer] nerated this result tra nsmitted reference range : 3.5 - 5.2 gm/dL. The refe rence range was not used to interpret this result as normal/abnormal . MD CabreraMagnesium [id number] 17:22:28 Test Item Value Reference Range Interpretation Comments Magnesium (test code = 6359) 2.2 mg/dL 1.6-2.6 MD CabreraAspartate [id number] 17:22:27 Test Item Value Reference Range Interpretation Comments AST (test code = 13 U/L See_Comment [Automated message] The 2496) system which Tapat[employer] nerated this result transmit nish reference range : <=40. The reference range was not used to interpr et this result as ian l/abnormal. MD CabreraAlkaline [id number] 17:22:26 Test Item Value Reference Range Interpretation Comments Alk Phos (test code = 4782) 91 U/L 40-129 MD [id number] 17:22:24 Test Item Value Reference Range Interpretation Comments ALT (test code = 9 U/L See_Comment [Automated message] The 8877) system which ge nerated this result transmit nish reference range : <=41. The reference range was not used to interpr et this result as ian l/abnormal. MD CabreraGlucose [id number] 17:22:23 Test Item Value Reference Range Interpretation [...] diabetes Lab Interpretation (test Abnormal code = 43657-7) MD Cabrera.Serum [id number] 17:22:22 Test Item Value Reference Range Interpretation Comments Creatinine (test code = 5399) 1.12 mg/dL 0.67-1.17 MD [id number] 17:22:21 Test Item Value Reference Range Interpretation Comments BUN (test code = 5055) 14 mg/dL 6-23 MD Cab[id number] 16:30:26 Test Item Value Reference Range Interpretation Comments Neutrophil % (test code = 58.0 % 42.0-66.0 89913-6) Lymphocyte % (test code = 30.6 % 24.0-44.0 737-7) Monocyte % (test code = 8.7 % 2.0-7.0 H 744-3) Eosinophil % (test code = 1.9 % 1.0-4.0 713-8) Basophil % (test code = 0.6 % 0.0-1.0 707-0) IGRE % (test code = 0.2 % 0.0-0.4 IGRE % c ount 73323-7) includes Metamyelocytes, Myelocytes, and Promyelocytes. Neutrophil Abs (test code 3.07 K/uL 1.70-7.30 = 753-4) Lymphocyte Abs (test code 1.62 K/uL 1.00-4.80 = 732-8) Monocyte Abs (test code = 0.46 K/uL 0.08-0.70 743-5) Eosinophil Abs (test code 0.10 K/uL 0.04-0.40 = 712-0) Basophil Abs (test code = 0.03 K/uL 0.00-0.10 705-4) IG Abs (test code = 0.01 K/uL 0.00-0.04 45373-6) Lab Interpretation (test Abnormal code = 23353-7) MD Cabrera.[id number] 16:30:16 Test Item Value Reference Range Interpretation Comments WBC (test code = 5.3 K/uL 4.0-11.0 6690-2) RBC (test code = 789-8) 4.71 See_Comment [Au tomated message] The system [employer] generated this result transmitted ref erence range: 4.50 - 6 .00 M/uL. The refer ence range was not u sed to interpret this result as normal/abnor mal. Hgb (test code = 718-7) 13.9 See_Comment L [Au tomated message] The system [employer] generated this result transmitted ref erence range: 14.0 - 1 8.0 gm/dL. The refe rence range was not u sed to interpret this result as normal/abnor mal. Hct (test code = 42.5 % 40.0-54.0 4544-3) MPV (test code = 787-2) 9.5 fL 4.0-10.4 MCH (test code = 785-6) 29.5 pg 27.0-31.0 MCHC (test code = 32.7 See_Comment [Automate d message] 786-4) The system [employer] generated this result transmitted ref erence range: 31.0 - 3 6.0 gm/dL. The refe rence range was not u sed to interpret this result as normal/abnor mal. RDW-SD (test code = 42.2 fL 35.1-46.3 58260-0) RDW-CV (test code = 12.8 % 12.0-15.5 [...] cell differential. [Automated mess age] The system ic [employer] generated this result transmitted ref erence range: <=0.0. T he reference range was not used to int erpret this result as normal/abnormal . Lab Interpretation Abnormal (test code = 96886-8) MD Cabrera
[2021-07-19 11:02] LABS: Absolute Lymphocytes (CBC) 1.8 K/uL (0.7-4.9); Hematocrit 39.9 % (39.6-49.0); Lymphocytes % 27.9 % (15.3-44.8); MPV 7.5 fL (7.6-11.3); RBC Red Blood Cell Count 4.61 M/uL (4.33-5.43)
[2021-07-19] MEDS ORDERED: ONDANSETRON 4 MG/2 ML VIAL ONE (11:07)
[2021-07-19] MEDS ORDERED: NA CHLORIDE 0.9% 500 ML ONE (11:07)
--- NOTE | 2021-07-19 11:14 | RAD REPORT ---
EXAM DESCRIPTION: CT - Head Brain Wo Cont - 07/19/2021 11:07 am CLINICAL HISTORY: Dizziness, non-specific Headache, drowsiness COMPARISON: Head angio dated 06/23/2021; Ct Stroke Brain Wo Cont dated 06/23/2021; Neck Angio dated TECHNIQUE: All CT scans are performed using dose optimization technique as appropriate and may inclu de automated exposure control or mA/KV adjustment according to patient size. FINDINGS: No intracranial hemorrhage, hydrocephalus or extra-axial fluid collection.Moderate diffuse brain atrophy.No areas of brain edema or evidence of midline shift. Small old infarct 4 mm adjacent to the right caudate head. The paranasal sinuses and mastoids are clear. The calvarium is intact. IMPRESSION: No acute intracranial abnormality.
[2021-07-19 11:22] LABS: Albumin 4.1 g/dL (3.4-5.0); Bilirubin Direct 0.2 mg/dL (0-0.2); Bilirubin Total 0.6 mg/dL (0.2-1.0); Magnesium 2.2 mg/dL (1.8-2.4); Protein, Total 7.5 g/dL (6.4-8.2); Troponin High Sensitivity 9.6 pg/mL (<58.9)
--- NOTE | 2021-07-19 11:43 | RAD REPORT ---
EXAM DESCRIPTION: RAD - Chest Single View - 07/19/2021 11:35 am CLINICAL HISTORY: generalized weakness, R/O pneumonia Chest pain. COMPARISON: Chest Single View dated 06/23/2021 FINDINGS: Portable technique limits examination quality. The lungs are grossly clear. The heart is upper limit of normal in size. No displaced fractures.Aorti c atherosclerosis. IMPRESSION: No acute intrathoracic process suspected.
[2021-07-19 12:32] LABS: SARS-COV-2 RT PCR NEGATIVE (NEGATIVE)
--- NOTE | 2021-07-19 14:19 | RAD REPORT ---
EXAM DESCRIPTION: MRI - MRA Head Wo Cont - 07/19/2021 2:04 pm CLINICAL HISTORY: Dizziness, HX CVA, discussed with neurology. CVA COMPARISON: Head Brain Wo Cont dated 07/19/2021; Brain W/Wo Cont dated 07/19/2021; MRA Neck W/Wo Cont dated 07/19/2021 FINDINGS: 3D noncontrast [id number] MR angiography of the [place] of [place] was performed. 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 There is reconstitution just before the bifurcation but there is again noted to be stenoses of the proximal M2 segment. Note that this is correlating with the contrasted neck MRA which includes this portion in the field of view. Th e left middle cerebral artery is patent though it does appear narrowed at the M2 segment. This is fav ored chronic. Left dominant vertebral artery. The right vertebral artery is diminutive but patent. 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 Proximal stenosis of the right M2 segment of the middle cerebral artery as well. No aneurysm identified.
--- NOTE | 2021-07-19 14:44 | RAD REPORT ---
EXAM DESCRIPTION: MRI - Brain W/Wo Cont - 07/19/2021 2:06 pm CLINICAL HISTORY: DIZZINESS, HX OF CVA COMPARISON: MRA Head Wo Cont dated 07/19/2021 TECHNIQUE: Sagittal T1-weighted images were obtained along with PD/heavily T2-weighted and T2-FLAIR images. Axial DWI and ADC mapping sequences were also obtained along with coronal heavily T2-weighted images were obtained. Post contrast enhanced images were obtained. FINDINGS: No intracranial hemorrhage, mass or acute infarction. No edema or shift of midline structu res. No extra-axial fluid collections. Signal voids are seen as a normal finding in the major intracr anial vessels. Remote right [place] radiata infarct. Mild chronic small vessel ischemic changes. Cereb ral atrophy. No abnormal enhancement. No mastoid effusion.Paranasal sinuses are clear. IMPRESSION: No acute intracranial abnormality. No abnormal enhancement. No acute infarct. Sequela of small remote right shel[place] radiata infarct background of chronic small vessel ischemic changes.
--- NOTE | 2021-07-19 14:48 | RAD REPORT ---
EXAM DESCRIPTION: MRI - MRA Neck W/Wo Cont - 07/19/2021 2:06 pm CLINICAL HISTORY: DIZZINESS, HX OF CVA COMPARISON: No comparisons FINDINGS: Contrast enhance 2D [id number] MR angiography of the neck vessels was performed. Both carotid systems are widely patent. Left dominant vertebral artery is widely patent. The nondomin ant right vertebral artery is occluded proximally. The remainder of the course has multifocal stenose s and/or possible short-segment occlusions. Multifocal stenoses also noted in the intracranial verteb ral artery. This is better assessed with the contrast enhanced MRA. IMPRESSION: Patent carotid systems bilaterally. 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 Dominant left vertebral artery is widely patent.
--- NOTE | 2021-07-19 15:17 | EDPHYS ---
Physician Documentation [facility] Name: Chilo Hendricks Jr Age: 86 yrs Sex: Male : 1935 Arrival Date: 07/19/2021 Time: 10:14 Bed 15 Private MD: Yolanda Li ED Physician Yadira Garrison HPI: 07/19 10:51 This 86 yrs old Male presents to ER via Ambulatory with complaints of Dizziness, la1 lightheaded. 10:51 The patient presents with feeling faint, generalized weakness, lightheadedness. Onset: la1 The symptoms/episode began/occurred this morning, at 07:00. Context: occurred at home. Modifying factors: the symptoms are aggravated by movement of head. Associated signs and symptoms: Pertinent positives: vomiting, Pertinent negatives: blurred vision, focal weakness, head injury, headache, near-syncope, numbness, seizure, syncope, tingling. Severity of symptoms: At their worst the symptoms were moderate in the emergency department the symptoms have improved. Patient's baseline: Neuro: alert and fully oriented, Motor: no deficits, Speech: normal, The patient has a previous history of CVA. The patient has not experienced similar symptoms in the past. Patient reports he went to bed feeling unwell but without dizziness or lightheadedness woke up this morning and then around 7 AM started having some lightheadedness/dizziness/generalized weakness. Patient cannot pinpoint symptoms reports he just does not feel right. NIH currently 0.. Historical: - Allergies: 10:29 No Known Allergies; ab2 - PMHx: 10:29 Myocardial infarction; Stroke; ab2 - PSHx: 10:29 cardiac stent; ab2 - Immunization history:: Adult Immunizations up to date. - Social history:: Smoking status: Patient denies any tobacco usage or history of. ROS: 10:53 Eyes: Negative for injury, pain, redness, and discharge, ENT: Negative for injury, la1 pain, and discharge, Neck: Negative for injury, pain, and swelling, Cardiovascular: Negative for chest pain, palpitations, and edema, Respiratory: Negative for shortness of breath, cough, wheezing, and pleuritic chest pain, Abdomen/GI: Negative for abdominal pain, nausea, vomiting, diarrhea, and constipation, Back: Negative for injury and pain, MS/Extremity: Negative for injury and deformity, Skin: Negative for injury, rash, and discoloration. 10:53 Constitutional: Positive for malaise. 10:53 Neuro: Positive for dizziness, lightheadedness/generalized weakness, Negative for altered mental status, headache, loss of consciousness, numbness, seizure activity, speech changes, syncope, near syncope, tingling, tinnitus, visual changes. Exam: 10:54 Constitutional: This is a well developed, well nourished patient who is awake, alert, la1 and in no acute distress. Head/Face: Normocephalic, atraumatic. Eyes: Pupils equal round and reactive to light, extra-ocular motions intact. Cornea within normal limits. Periorbital areas with no swelling, redness, or edema. ENT: Nares patent. No nasal discharge, no septal abnormalities noted. Mucous membranes moist. Neck: Trachea midline,Supple, full range of motion without nuchal rigidity, Chest/axilla: Normal chest wall appearance and motion. Nontender with no deformity. No lesions are appreciated. Cardiovascular: Regular rate and rhythm with a normal S1 and S2. No gallops, murmurs, or rubs. Normal PMI, no JVD. No pulse deficits. Respiratory: Lungs have equal breath sounds bilaterally, clear to auscultation Abdomen/GI: Soft, non-tender, with normal bowel sounds. No distension or tympany. No guarding or rebound. No evidence of tenderness throughout. Back: No spinal tenderness. No costovertebral tenderness. Full range of motion. Skin: Warm, dry with normal turgor. Normal color with no rashes, no lesions, and no evidence of cellulitis. 10:54 ECG was reviewed by the Attending Physician. 10:54 Neuro: Orientation: to person, place, time \\T\\ situation. Mentation: responsive to voice lucid, able to follow commands, Memory: is normal, Cranial nerves: CN II- XII are normal as tested, visual menjivar are intact. extraocular movements are intact, Facial palsy and sensory deficits are absent. Nystagmus is absent. Speech is clear and appropriate. Cerebellar function: normal finger to nose testing, Motor: moves all fours, strength is 5/5 in all extremities, Sensation: is normal. Vital Signs: 10:27 BP 156 / 83; Pulse 82; Resp 17; Temp 97.6; Pulse Ox 98% on R/A; Weight 83.91 kg; Height ab2 5 ft. 7 in. (170.18 cm); 10:45 BP 123 / 70; Pulse 65; Resp 17 S; Pulse Ox 93% on R/A; jg9 11:45 BP 124 / 67; Pulse 52; Resp 15 S; Pulse Ox 95% on R/A; jg9 12:30 BP 119 / 62; Pulse 64; Resp 20 S; Pulse Ox 97% on R/A; jg9 12:45 BP 124 / 62; Pulse 63; Resp 21 S; Pulse Ox 98% on R/A; jg9 14:00 BP 139 / 72; Pulse 62; Resp 21 S; Pulse Ox 96% on R/A; jg9 14:30 BP 128 / 62; Pulse 63; Resp 17; Pulse Ox 96% on R/A; jg9 15:30 BP 123 / 92; Pulse 71; Resp 20 S; Pulse Ox 95% on R/A; jg9 10:27 Body Mass Index 28.97 (83.91 kg, 170.18 cm) ab2 NIH Stroke Scale Scores: 10:54 NIHSS Score: 0 la1 MDM: 10:29 Patient medically screened. la1 11:51 ED course: Labs and current radiology orders are resulted all within normal limits, la1 patient still feels that he is dizzy discussed case with neurology Dr. Gay who recommends MRI stroke protocol. This is ordered and pending likely with prolonged ER stay.. 15:12 Differential diagnosis: CVA, generalized weakness, hypovolemia, near-syncope, sepsis, la1 syncope, TIA, vertigo. Data reviewed: vital signs, nurses notes, lab test result(s), EKG, radiologic studies, and as a result, I will discharge patient. Data interpreted: Pulse oximetry: on room air is 97 %. Interpretation: normal. Counseling: I had a detailed discussion with the patient and/or guardian regarding: the historical points, exam findings, and any diagnostic results supporting the discharge/admit diagnosis, lab results, radiology results, the need for outpatient follow up, a neurologist, to return to the emergency department if symptoms worsen or persist or if there are any questions or concerns that arise at home. Physician consultation: Dmitriy Gay MD. ED course: Discussed case with neurology after CT scan of head without contrast returned negative he recommended MRI stroke protocol with MRA. MRA was reviewed which showed severe stenosis of the M1 segment of the middle cerebral artery as well as proximal stenosis of the M2 segment. MRI without contrast was negative for acute CVA. Patient still with mild lightheadedness versus dizziness he ambulated well with minimal assistance, reports he feels somewhat better. Neurology recommends starting patient on aspirin, Plavix, folic acid and statin and having him follow-up outpatient with neurology and likely neuro interventional radiology regarding his severe stenosis. Patient and family at bedside are amenable with plan, will also provide with meclizine as trial given his dizziness/lightheadedness. It is exacerbated by movement possibly vertigo. Strict return precautions given. Patient reports that he already takes aspirin and a statin at home will provide prescriptions for Plavix, meclizine, folic acid.. 07/19 10:41 Order name: Basic Metabolic Panel; Complete Time: 11:34 07/19 10:41 Order name: CBC with Diff; Complete Time: 11:12 07/19 10:41 Order name: LFT's; Complete Time: 11:07/19 10:41 Order name: Magnesium; Complete Time: 11:34 07/19 10:41 Order name: NT PRO-BNP; Complete Time: 11:07/19 10:41 Order name: Troponin HS; Complete Time: 11:07/19 10:41 Order name: XRAY Chest (1 view); Complete Time: 11:45 07/19 10:41 Order name: Blood Culture Adult (2) 07/19 10:41 Order name: Lactate; Complete Time: 11:34 07/19 10:41 Order name: Head Brain Wo Cont CT; Complete Time: 11:34 07/19 11:00 Order name: COVID-19/FLU A+B (Document "Date of Onset" if Symptomatic); Complete Time: 13:14 07/19 13:57 Order name: MRA Head Wo Cont; Complete Time: 14:34 EDMS 07/19 14:00 Order name: Brain W/Wo Cont EDMS 07/19 10:41 Order name: EKG; Complete Time: 10:41 07/19 10:41 Order name: Cardiac monitoring; Complete Time: 10:42 07/19 10:41 Order name: EKG - Nurse/Tech; Complete Time: 10:42 07/19 10:41 Order name: IV Saline Lock; Complete Time: 10:42 07/19 10:41 Order name: Labs collected and sent; Complete Time: 11:11 07/19 10:41 Order name: O2 Per Protocol; Complete Time: 16:06 07/19 10:41 Order name: O2 Sat Monitoring; Complete Time: 10:42 07/19 14:00 Order name: MRA Neck W/Wo Cont EDMS EC:54 Rate is 66 beats/min. Rhythm is regular. QRS [place] is Normal. No Q waves. T waves are la1 Inverted in leads III, aVR, V1. No ST changes noted. Clinical impression: NSR w/ Non-specific ST/T Changes. Interpreted by me. Reviewed by me. Administered Medications: 11:15 Drug: NS 0.9% 500 ml Route: IV; Rate: bolus; Site: right antecubital; jg9 12:47 Follow up: IV Status: Completed infusion; IV Intake: 500ml jg9 11:15 Drug: Zofran (Ondansetron) 4 mg Route: IVP; Site: right antecubital; jg9 12:05 Follow up: Response: No adverse reaction jg9 15:37 Drug: Meclizine 25 mg Route: PO; jg9 16:06 Follow up: Response: No adverse reaction jg9 15:37 Drug: PlaVIX (clopidogrel) 75 mg Route: PO; jg9 16:05 Follow up: Response: No adverse reaction jg9 15:37 Drug: foLIC Acid 1 mg Route: PO; jg9 16:05 Follow up: Response: No adverse reaction jg9 Disposition: 18:43 Co-signature as Attending Physician, Yadira Garrison MD. ma2 Disposition Summary: 07/19/21 15:16 Discharge Ordered Location: Home la1 Problem: new la1 Symptoms: have improved la1 Condition: Stable la1 Diagnosis - Dizziness and giddiness la1 Followup: la1 - With: Dmitriy Gay MD - When: 2 - 3 days - Reason: Recheck today's complaints, Re-evaluation by your physician Discharge Instructions: - Discharge Summary Sheet la1 - Benign Positional Vertigo la1 - Dizziness la1 - Vertigo la1 Forms: - Medication Reconciliation Form la1 - Thank You Letter la1 Prescriptions: - Meclizine 25 mg Oral Tablet - take 1 tablet by ORAL route every 8 hours As needed; 30 tablet; Refills: 0, la1 Product Selection Permitted - Plavix 75 mg Oral Tablet - take 1 tablet by ORAL route once daily; 20 tablet; Refills: 0, Product la1 Selection Permitted - Folic Acid 1 mg Oral Tablet - take 1 tablet by ORAL route once daily; 30 tablet; Refills: 0, Product la1 Selection Permitted NIH Stroke Scale - NIH Stroke Score Date: 07/19/2021 Time: 10:54 Total Score = 0 1a. Level of Consciousness (LOC) - 0(Alert) 1b. Level of Consciousness (LOC) (Month \\T\\ Age) - 0(Both) 1c. LOC Commands (Open \\T\\ Closes Eyes/Physical Geographer) - 0(Both) 2. Best Gaze (Lateral Gaze Paresis) - 0(Normal) 3. Visual Field Loss - 0(No visual loss) 4. Facial Palsy - 0(Normal) 5a. Left Arm: Motor (10-second hold) - 0(No drift) 5b. Right Arm: Motor (10-second hold) - 0(No drift) 6a. Left Leg: Motor (5-second hold - always test supine) - 0(No drift) 6b. Right Leg: Motor (5-second hold - always test supine) - 0(No drift) 7. Limb Ataxia (finger/nose \\T\\ heel/jarquin - test with eyes open) - 0(Absent) 8. Sensory Loss (pinprick arms/legs/face) - 0(Normal) 9. Best Language: Aphasia (description/naming/reading) - 0(No aphasia) 10. Dysarthria (speech clarity - read or repeat words) - 0(Normal) 11. Extinction and Inattention (visual/tactile/auditory/spatial/personal) - 0(No abnormality) Initials: la1 Signatures: Dispatcher [employer] EDMS Rocky Pascal, [place]-C SOUND EFFECTS PERSON-Cla1 Yadira Garrison MD MD ma2 Mary Barbosa, RN RN jg9 Fox Hernández Jennifer, FNP SOUND EFFECTS PERSON jh7 Corrections: (The following items were deleted from the chart) 13:57 11:53 MR STROKE PROTOCOL+MRI.RAD.BRZ ordered. EDMS EDMS 16:06 10:41 Urine Dipstick-Ancillary ordered. la1 jg9
--- NOTE | 2021-07-19 15:17 | ER ---
Nurse's Notes [facility] Name: Chilo Hendricks Jr Age: 86 yrs Sex: Male : 1935 Arrival Date: 07/19/2021 Time: 10:14 Bed 15 Private MD: Yolanda Li Diagnosis: Dizziness and giddiness Presentation: 07/19 10:27 Chief complaint: Patient states: "I woke up this morning and I just don't feel right. I ab2 am lightheaded and dizzy when im walking." Pt had an episode of vomiting during triage and states it made him feel a little better. Pt c/o abdominal pain. Coronavirus screen: Vaccine status: Patient reports receiving the 2nd dose of the covid vaccine. Client denies travel out of the [place] in the last 14 days. Ebola Screen: Patient negative for fever greater than or equal to 101.5 degrees Fahrenheit, and additional compatible Ebola Virus Disease symptoms Patient denies exposure to infectious person. Patient denies travel to an Ebola-affected area in the 21 days before illness onset. No symptoms or risks identified at this time. Initial Sepsis Screen: Does the patient meet any 2 criteria? No. Patient's initial sepsis screen is negative. Does the patient have a suspected source of infection? No. Patient's initial sepsis screen is negative. Risk Assessment: Do you want to hurt yourself or someone else? Patient reports no desire to harm self or others. Onset of symptoms is unknown. 10:27 Method Of Arrival: Ambulatory ab2 10:27 Acuity: JESUS 3 ab2 Triage Assessment: 10:30 General: Appears in no apparent distress. uncomfortable, Behavior is calm, cooperative, ab2 appropriate for age. Pain: Complains of pain in abdomen. Neuro: Level of Consciousness is awake, alert, obeys commands, Oriented to person, place, time, situation, Appropriate for age Gait is steady, Speech is normal, Facial symmetry appears normal. Cardiovascular: No deficits noted. Denies chest pain, shortness of breath, Patient's skin is warm and dry. Respiratory: No deficits noted. Airway is patent Respiratory effort is even, unlabored, Respiratory pattern is regular, symmetrical. GI: Reports lower abdominal pain, upper abdominal pain, nausea, vomiting. Derm: Skin is fragile. Historical: - Allergies: 10:29 No Known Allergies; ab2 - PMHx: 10:29 Myocardial infarction; Stroke; ab2 - PSHx: 10:29 cardiac stent; ab2 - Immunization history:: Adult Immunizations up to date. - Social history:: Smoking status: Patient denies any tobacco usage or history of. Screenin:36 Abuse screen: Denies threats or abuse. Denies injuries from another. Nutritional jg9 screening: No deficits noted. Tuberculosis screening: No symptoms or risk factors identified. Fall Risk None identified. Assessment: 12:49 Reassessment: No changes from previously documented assessment. Patient and/or family jg9 updated on plan of care and expected duration. Pain level reassessed. Patient is alert, oriented x 3, equal unlabored respirations, skin warm/dry/pink. Vital Signs: 10:27 BP 156 / 83; Pulse 82; Resp 17; Temp 97.6; Pulse Ox 98% on R/A; Weight 83.91 kg; Height ab2 5 ft. 7 in. (170.18 cm); 10:45 BP 123 / 70; Pulse 65; Resp 17 S; Pulse Ox 93% on R/A; jg9 11:45 BP 124 / 67; Pulse 52; Resp 15 S; Pulse Ox 95% on R/A; jg9 12:30 BP 119 / 62; Pulse 64; Resp 20 S; Pulse Ox 97% on R/A; jg9 12:45 BP 124 / 62; Pulse 63; Resp 21 S; Pulse Ox 98% on R/A; jg9 14:00 BP 139 / 72; Pulse 62; Resp 21 S; Pulse Ox 96% on R/A; jg9 14:30 BP 128 / 62; Pulse 63; Resp 17; Pulse Ox 96% on R/A; jg9 15:30 BP 123 / 92; Pulse 71; Resp 20 S; Pulse Ox 95% on R/A; jg9 10:27 Body Mass Index 28.97 (83.91 kg, 170.18 cm) ab2 NIH Stroke Scale Scores: 10:54 NIHSS Score: 0 la1 ED Course: 10:14 Patient arrived in ED. am2 10:15 Yolanda Li MD is Private Physician. am2 10:28 Mary Barbosa RN is Primary Nurse. jg9 10:29 Attema, Rocky, APPLICATION INTEGRATOR-C [facility] la1 10:29 Yadira Garrison MD is Attending Physician. la1 10:29 Triage completed. ab2 10:31 Arm band placed on right wrist. ab2 10:34 Inserted saline lock: 20 gauge in right antecubital area, using aseptic technique. bp Blood collected. 10:39 No apparent distress. Resting quietly. Pt visited by son. jg9 10:39 Patient has correct armband on for positive identification. Bed in low position. Call jg9 light in reach. Side rails up X 1. 11:08 Head Brain Wo Cont CT In Process Unspecified. EDMS 11:37 XRAY Chest (1 view) In Process Unspecified. EDMS 12:49 No apparent distress. Resting quietly. Awaiting: MRI exam. jg9 14:06 MRA Head Wo Cont In Process Unspecified. EDMS 14:08 Brain W/Wo Cont In Process Unspecified. EDMS 14:08 MRA Neck W/Wo Cont In Process Unspecified. EDMS 15:16 Dmitriy Gay MD is Referral Physician. la1 Administered Medications: 11:15 Drug: NS 0.9% 500 ml Route: IV; Rate: bolus; Site: right antecubital; jg9 12:47 Follow up: IV Status: Completed infusion; IV Intake: 500ml jg9 11:15 Drug: Zofran (Ondansetron) 4 mg Route: IVP; Site: right antecubital; jg9 12:05 Follow up: Response: No adverse reaction jg9 15:37 Drug: Meclizine 25 mg Route: PO; jg9 16:06 Follow up: Response: No adverse reaction jg9 15:37 Drug: PlaVIX (clopidogrel) 75 mg Route: PO; jg9 16:05 Follow up: Response: No adverse reaction jg9 15:37 Drug: foLIC Acid 1 mg Route: PO; jg9 16:05 Follow up: Response: No adverse reaction jg9 Intake: 12:47 IV: 500ml; Total: 500ml. jg9 Outcome: 15:16 Discharge ordered by . la1 16:06 Patient left the ED. jg9 NIH Stroke Scale - NIH Stroke Score Date: 07/19/2021 Time: 10:54 Total Score = 0 1a. Level of Consciousness (LOC) - 0(Alert) 1b. Level of Consciousness (LOC) (Month \\T\\ Age) - 0(Both) 1c. LOC Commands (Open \\T\\ Closes Eyes/D[place]ac Operator) - 0(Both) 2. Best Gaze (Lateral Gaze Paresis) - 0(Normal) 3. Visual Field Loss - 0(No visual loss) 4. Facial Palsy - 0(Normal) 5a. Left Arm: Motor (10-second hold) - 0(No drift) 5b. Right Arm: Motor (10-second hold) - 0(No drift) 6a. Left Leg: Motor (5-second hold - always test supine) - 0(No drift) 6b. Right Leg: Motor (5-second hold - always test supine) - 0(No drift) 7. Limb Ataxia (finger/nose \\T\\ heel/jarquin - test with eyes open) - 0(Absent) 8. Sensory Loss (pinprick arms/legs/face) - 0(Normal) 9. Best Language: Aphasia (description/naming/reading) - 0(No aphasia) 10. Dysarthria (speech clarity - read or repeat words) - 0(Normal) 11. Extinction and Inattention (visual/tactile/auditory/spatial/personal) - 0(No abnormality) Initials: la1 Signatures: Dispatcher [employer] Rocky Velez, APPLICATION INTEGRATOR-C APPLICATION INTEGRATOR-Cla1 Lamar Calderon am2 Yusef Garnett, RN RN bp Mary Barbosa RN RN jg9 Fox Hernández2
[2021-07-19] MEDS ORDERED: CLOPIDOGREL 75 MG TABLET ONE (15:30)
[2021-07-19] MEDS ORDERED: FOLIC ACID 1 MG TABLET ONE (15:30)
[2021-07-19] MEDS ORDERED: MECLIZINE HCL 12.5 MG TAB ONE (15:31)
[2021-07-19 16:19] VITALS: TEMP 97.6
[2021-07-19 16:28] VITALS: BP 123/92; O2SAT 95
== END 2021-07-19 16:06 | disposition home or self-care (01) ==
LOC: ER 10:12
DX: R42 Dizziness and giddiness (principal); I25.2 Old myocardial infarction; Z20.822 Contact with and (suspected) exposure to COVID-19
CPT/HCPCS: 96361; 93005; 87040 ×2; 85025; 80048; 36415; 83735; 80076; 83605; 84484; 83880; 0240U; 70450; 71045; 70553; 70544; 70549; 96374; 99284; A9577; J8597; J7040; J2405

== ENCOUNTER 2021-08-06 17:29 | Emergency (ER) | payer MEDICARE ==
--- OUTSIDE RECORDS SUMMARY | 2021-08-06 17:32 | XMS REPORT | Clinical Summary ---
:1935 Author Organization [facility] MD Bobby [facility] Address [address] [place] [address] Care Team Providers Name Role Phone Destin [...] in situ (Primary Dx) 03/07/2021 Travel after 08/06/2020 Family History Medical History Relation Name Comments [...] Comments Blood Pressure 160/78 03/27/2021 9:32 AM ROOF DESIGNER Pulse 67 03/27/2021 9:32 AM ROOF DESIGNER Temperature 36.7 C (98.1 F) 03/27/2021 9:32 AM ROOF DESIGNER Respiratory Rate 18 03/27/2021 9:32 AM ROOF DESIGNER Oxygen Saturation 97% 03/27/2021 9:32 AM ROOF DESIGNER Inhaled Oxygen Concentration - - Weight 84.3 kg (185 lb 13.6 oz) 03/27/2021 9:32 AM ROOF DESIGNER Height 165.1 cm (5' 5") 03/27/2021 9:32 AM ROOF DESIGNER Body Mass Index 30.93 03/27/2021 9:32 AM ROOF DESIGNER Plan of Treatment Date Type Specialty Care Team Description 09/25/2021 Office Visit Dermatology Destin Persaud MD [address] [place], [place] [address] (Wo rk) Health Maintenance Due Date Last Done Comments COVID-19 Vaccination (1) 01/07/1940 Procedures Procedure Name Priority Date/Time Associated Comments Diagnosis TMP HIV 1/2 AG&AB PATH Routine 03/07/2021 10:20 R esults for this INTERP AM ROOF DESIGNER procedure are i n the results section. FRACTIONATED BILIRUBIN Now 03/07/2021 10:20 R esults for this AM ROOF DESIGNER procedure are i n the results section. TOTAL PROTEIN Now 03/07/2021 10:20 Results fo r this AM ROOF DESIGNER procedure are i n the results section. ASPARTATE Now 03/07/2021 10:20 Results for this AMINOTRANSFERASE AM ROOF DESIGNER procedure a re in the results section. ALANINE AMINOTRANSFERASE Now 03/07/2021 10:20 Results for this AM ROOF DESIGNER procedure are i n the results section. ALKALINE PHOSPHATASE Now 03/07/2021 10:20 Res ults for this AM ROOF DESIGNER procedure are i n the results section. ALBUMIN LEVEL Now 03/07/2021 10:20 Results fo r this AM ROOF DESIGNER procedure are i n the results section. CALCIUM LEVEL TOTAL Now 03/07/2021 10:20 Resu lts for this AM ROOF DESIGNER procedure are i n the results section. .GLOMERULAR FILTRATION Now 03/07/2021 10:20 R esults for this RATE AM ROOF DESIGNER procedure are i n the results section. SERUM CREATININE Now 03/07/2021 10:20 Results for this AM ROOF DESIGNER procedure are i n the results section. ELECTROLYTE PANEL Now 03/07/2021 10:20 Result s for this AM ROOF DESIGNER procedure are i n the results section. BLOOD UREA NITROGEN Now 03/07/2021 10:20 Resu lts for this AM ROOF DESIGNER procedure are i n the results section. GLUCOSE LEVEL Now 03/07/2021 10:20 Results fo r this AM ROOF DESIGNER procedure are i n the results section. MANUAL DIFFERENTIAL STAT 03/07/2021 10:20 Resu lts for this AM ROOF DESIGNER procedure are i n the results section. Results CBC STAT 03/07/2021 10:20 Results for this AM ROOF DESIGNER procedure are i n the results section. HIV-1/2 ANTIGEN AND Now 03/07/2021 10:20 Resu lts for this ANTIBODIES, FOURTH AM ROOF DESIGNER procedure are in GENERATION the results section. PHOSPHORUS LEVEL Now 03/07/2021 10:20 Results for this AM ROOF DESIGNER procedure are i n the results section. MAGNESIUM LEVEL Now 03/07/2021 10:20 Results for this AM ROOF DESIGNER procedure are i n the results section. COMPREHENSIVE METABOLIC Now 03/07/2021 10:20 PANEL AM ROOF DESIGNER COMPLETE BLOOD COUNT W/ Now 03/07/2021 10:20 DIFFERENTIAL AM ROOF DESIGNER after 08/06/2020 Results TMP HIV 1/2 Ag&Ab Path Interp (03/07/2021 10:20 AM ROOF DESIGNER) HIV 1/2 Ag&Ab Negative for HIV-1 antigen a nd HIV-1/HIV-2 antibodies. No laboratory evidence of HIV infection. If acute HIV infection is suspected, consider testing for HIV-1 RNA. ANDREIA GARCIA DONOR Interp Comment: CENTER CLAUDIO URRUTIA, Dictated by: CLAUDIO URRUTIA, Dictated Date/Time: 03.08.20 8:05 AM ROOF DESIGNER Transcribed Date/Time: 03.08.2021 8:05 AM ROOF DESIGNER Electronically Signed By: CLAUDIO URRUTIA, on 120 8:05 AM C Specimen Blood Performing Organization Address City/[facility]/ZIP [facility] Phon e Number [facility] [address] [address] HIV-1/2 Antigen and Antibodies, Fourth Generation (03/07/2021 10:20 AM ROOF DESIGNER) Pathologist [facility] HIV 1/2 Ag & Ab, Non Reactive Non Reactive [facility] 4th Gen Comment: CENTER Performed at: [facility] [place] [address] Specimen Blood Performing Organization Address City/[facility] Phon e Number [facility] [address] [address] .Serum Creatinine (03/07/2021 10:20 AM ROOF DESIGNER) Pathologist [facility] Creatinine 1.12 0.67 - 1.17 mg/dL [facility] CANCER C ENTER Specimen Blood Performing Organization Address City/[facility] Phon e Number [facility] CANCER Unless otherwise noted, [place] [address] CENTER all lab tests performed by: Division of Pathology and Laboratory Medicine [facility] (ABNORMAL) .CBC (03/07/2021 10:20 AM ROOF DESIGNER) [facility] WBC 5.3 4.0 - 11.0 [facility] K/uL [facility] RBC 4.71 4.50 - 6.00 [facility] M/[facility] CENTER Hgb 13.9 (L) 14.0 - 18.0 [facility] gm/dL [facility] Hct 42.5 40.0 - 54.0 % [facility] MCV 90 82 - 98 fL [facility] MCH 29.5 27.0 - 31.0 pg [facility] MCHC 32.7 31.0 - 36.0 [facility] gm/dL [facility] RDW-SD 42.2 35.1 - 46.3 fL [facility] RDW-CV 12.8 12.0 - 15.5 % [facility] Platelet count 211 140 - 440 K/uL [facility] MPV 9.5 4.0 - 10.4 fL [facility] INRBC 0.0 <=0.0 % [facility] Comment: CANCER CENTER The INRBC (instrument NRBC) value reflects the enumera tion of nucleated red blood cells contained in a 200uL samp le of whole blood analyzed by the instrument. This value may differ from the NRBC value reported in a manual differ ential, which is based on a 100 cell differential. Specimen Blood Performing Organization Address City/State/ZIP Code Phon e Number [facility] CANCER Unless otherwise noted, [place] [address] CENTER all lab tests performed by: Division of Pathology and Laboratory Medicine [address] (ABNORMAL) Glomerular Filtration Rate (03/07/2021 10:20 AM ROOF DESIGNER) eGFR-AA 68 >=60 [facility] Comment: mL/min/1.73 [facility] Normal eGFR: >= 60 mL/min/1.73 m2 [...] Kidney failure <15 eGFR-LOIS 59 (L) >=60 [facility] Comment: mL/min/1.73 [facility] Normal eGFR: >= 60 mL/min/1.73 m2 [...] failure <15 Specimen Blood Performing Organization Address City/[facility]/ZIP [facility] Phon e Number [facility] CANCER Unless otherwise noted, [address] all lab tests performed by: Division of Pathology and Laboratory Medicine [address] [place] [address] Fractionated Bilirubin (03/07/2021 10:20 AM ROOF DESIGNER) Pathologist [facility] Bili Total 0.3 <=1.2 mg/dL [facility] Comment: CANCER CENTER Indocyanine Green (ICG) may cause falsely elevated bilirubin results. Total and direct bilirubin must not be measured from samples containing indocyanine green. False elevation of total mike irubin can be seen in patients with IgG concentrations above 28 g/L. Bili Direct <0.2Comment: <=0.3 mg/dL [facility] Indocyanine Green [facility] (ICG) may cause falsely elevated bilirubin results. Total and direct bilirubin must not be measured from samples containing indocyanine green. Bili Indirect See NoteComment: 0.0 - 0.9 [facility] Unable to calculate mg/dL [facility] Indirect Bilirubin result due to some parameters are outside reportable range Specimen Blood Performing Organization Address City/[facility] Phon e Number [facility] CANCER Unless otherwise noted, [address] all lab tests performed by: Division of Pathology and Laboratory Medicine [address] [place] [address] (ABNORMAL) Differential (03/07/2021 10:20 AM ROOF DESIGNER) Pathologist [facility] Neutrophil % 58.0 42.0 - 66.0 % [facility] Lymphocyte % 30.6 24.0 - 44.0 % [facility] Monocyte % 8.7 (H) 2.0 - 7.0 % [facility] Eosinophil % 1.9 1.0 - 4.0 % [facility] Basophil % 0.6 0.0 - 1.0 % [facility] IGRE % 0.2Comment: IGRE % 0.0 - 0.4 % [facility] count includes [facility] Metamyelocytes, Myelocytes, and Promyelocytes. Neutrophil Abs 3.07 1.70 - 7.30 [facility] Lymphocyte Abs 1.62 1.00 - 4.80 [facility] Monocyte Abs 0.46 0.08 - 0.70 [facility] Eosinophil Abs 0.10 0.04 - 0.40 [facility] Basophil Abs 0.03 0.00 - 0.10 [facility] IG Abs 0.01 0.00 - 0.04 [facility] Specimen Blood Performing Organization Address City/State/ZIP Code Phon e Number [facility] Unless otherwise noted, [address] all lab tests performed by: Division of Pathology and Laboratory Medicine [address] BUN (03/07/2021 10:20 AM ROOF DESIGNER) Pathologist Sig nature BUN 14 6 - 23 mg/dL [facility] Specimen Blood Performing Organization Address City/[facility]/ZIP [facility] Phon e Number [facility] CANCER Unless otherwise noted, [address] all lab tests performed by: Division of Pathology and Laboratory Medicine [address] ALT (03/07/2021 10:20 AM ROOF DESIGNER) Pathologist Sig nature ALT 9 <=41 U/L [facility] Specimen Blood Performing Organization Address City/[facility]/ZIP Code Phon e Number [facility] CANCER Unless otherwise noted, [address] all lab tests performed by: Division of Pathology and Laboratory Medicine [address] Aspartate Aminotransferase (03/07/2021 10:20 AM ROOF DESIGNER) Pathologist Sig nature AST 13 <=40 U/L [facility] Specimen Blood Performing Organization Address City/[facility]/ZIP Code Phon e Number [facility] CANCER Unless otherwise noted, [address] all lab tests performed by: Division of Pathology and Laboratory Medicine [address] Total Protein (03/07/2021 10:20 AM ROOF DESIGNER) Pathologist Sig nature Total Protein 7.5 6.4 - 8.3 g/dL [facility] Specimen Blood Performing Organization Address City/[facility]/ZIP [facility] Phon e Number [facility] CANCER Unless otherwise noted, [address] all lab tests performed by: Division of Pathology and Laboratory Medicine [address] Phosphorus Level (03/07/2021 10:20 AM ROOF DESIGNER) Pathologist Sig nature Phosphorus 2.8 2.5 - 4.5 mg/dL [facility] Specimen Blood Performing Organization Address [facility] Phon e Number [facility] CANCER Unless otherwise noted, [address] all lab tests performed by: Division of Pathology and Laboratory Medicine [address] Alkaline Phosphatase (03/07/2021 10:20 AM ROOF DESIGNER) Pathologist Sig nature Alk Phos 91 40 - 129 U/L [facility] Specimen Blood Performing Organization Address City/[facility] Phon e Number [facility] Unless otherwise noted, [address] all lab tests performed by: Division of Pathology and Laboratory Medicine [address] Magnesium Level (03/07/2021 10:20 AM ROOF DESIGNER) Pathologist Sig nature Magnesium 2.2 1.6 - 2.6 mg/dL [facility] Specimen Blood Performing Organization Address [facility] Phon e Number [facility] Unless otherwise noted, [address] all lab tests performed by: Division of Pathology and Laboratory Medicine [address] (ABNORMAL) Glucose Level (03/07/2021 10:20 AM ROOF DESIGNER) Glucose Level 100 (H) 70 - 99 mg/dL [facility] Comment: CANCER CENTER Effective 10/25/15, the gluco se reference intervals have been updated based on [employer] guidelines (Standards of Medical Care in Diabetes 2016. Diabetes Care 2016; 39: S13-S22). Fasting blood glucose: Normal: 70-99 mg/dL Impaired fasting glucose (in creased risk for diabetes or pre-diabetes): 100- 125 mg/dL Diabetes mellitus: >/=126 mg/dL Random blood glucose: Normal: 70-199 mg/dL Note: Random glucose >100 mg/dL is assoc iated with increased risk for diabetes Specimen Blood Performing Organization Address [facility] Phon e Number [facility] Unless otherwise noted, [address] all lab tests performed by: Division of Pathology and Laboratory Medicine [address] Calcium Level (03/07/2021 10:20 AM ROOF DESIGNER) Pathologist Sig nature Calcium Lvl 9.6 8.4 - 10.2 mg/dL [facility] CE NTER Specimen Blood Performing Organization Address City/[facility]/ZIP Code Phon e Number [facility] CANCER Unless otherwise noted, [address] all lab tests performed by: Division of Pathology and Laboratory Medicine [address] [place] [address] Albumin Level (03/07/2021 10:20 AM ROOF DESIGNER) Pathologist Sig nature Albumin Lvl 4.8 3.5 - 5.2 gm/dL [facility] Specimen Blood Performing Organization Address City/[facility] Phon e Number [facility] CANCER Unless otherwise noted, [address] all lab tests performed by: Division of Pathology and Laboratory Medicine [address] [place] [address] Electrolyte Panel (03/07/2021 10:20 AM ROOF DESIGNER) Pathologist Sig nature Sodium Lvl 141 136 - 145 mEq/L [facility] Potassium Lvl 4.4 3.5 - 5.1 mEq/L [facility] Chloride 103 98 - 107 mEq/L [facility] CO2 27 22 - 29 mEq/L [facility] Anion Gap 11 4 - 14 mEq/L [facility] Specimen Blood Performing Organization Address City/[facility] Phon e Number [facility] CANCER Unless otherwise noted, [address] all lab tests performed by: Division of Pathology and Laboratory Medicine [address] [place] [address] Grant after 08/06/2020 Insurance Payer Benefit Plan / Subscriber ID Effective Dates Phone Addre ss Type Group HUMANA HUMANA CHOICE [id number] 2021-Prese [address] [address] Medicare [place] [phone] Care Teams Licensed Nursing Assistant Relationship Specialty Start Date End Date Destin Persaud MD PCP - General Dermatology 03/27/[address] [place] [id number]
--- OUTSIDE RECORDS SUMMARY | 2021-08-06 17:33 | XMS REPORT | Continuity of Care Document ---
:1935 Author Organization [facility] t Address [address] [place] [address] Care Team Providers Name Role Phone [phone] Primary Care Physician Unavailable Yolanda Li Attending Clinician Unavailable SYSTEM, PROVIDER NOT IN Attending Clinician Unavailable KIZZY LEYVA Attending Clinician Unavailable MARIELA RIVAS Attending Clinician Unavailable Theodore EDWARDS Attending Clinician Unavailable CORI Attending Clinician Unavailable Cori PERSAUD Attending Clinician BALTAZAR Attending Clinician Unavailable Baltazar PERSAUD Attending Clinician MARIELA RIVAS Admitting Clinician Unavailable Payers Payer Name Policy Type Policy Effective Date Expiration Date Sour ce Number Kannuu MGD [id number] 2021 [facility] 00:00:00 Kannuu [id number] 2021 (MEDICARE 00:00:00 REPLACEMENT HMO) HUMANA [id number] 2021 [facility] [id number] 1-[address] [place] [id number] Problems This patient has no known [...] Date Stop Date Quantity Comments Source History [facility] MD Cabrera Alcohol Std Drinks History [facility] MD Cabrera Alcohol Binge History [facility] MD Cabrera Alcohol Comment Tobacco use and 2021-03-27 2021-03-27 Smokeless tobacco MD Cabrera exposure 00:00:00 00:00:00 non-user Alcohol intake 2021-03-27 2021-03-27 Lifetime MD Dillard n 00:00:00 00:00:00 non-drinker (finding) History [facility] 2021-03-27 2021-03-27 1 MD Cabrera Alcohol Frequency [...] Body weight 2021-03-27 15:32:13 84.3 kg MD Bobby son BMI 2021-03-27 15:32:13 30.93 kg/m2 MD Kanu vinson Oxygen saturation in 2021-03-27 15:32:13 97 /min MD Cabrera Arterial blood by Pulse oximetry Procedures Procedure Date / Time Performed Performing Clinician Sourc e COMPLETE BLOOD COUNT W/ 2021-03-07 16:20:00 [...] Date/Time Type Type Clinicians Facility Department ID 2021-08-06 Outpatient ELADIO Li STLAMARLC [id number] NPI:174 16:54:02 Yolanda [id number] 2021-06-25 Outpatient ELADIO Li STLAMARLC [id number] NPI:174 14:10:03 Yolanda [id number] 2021-05-11 Outpatient ELADIO Li STLAMARLC [id number] NPI:174 10:00:03 Yolanda [id number] 2021-05-03 Outpatient SYSTEM, JORGE LUIS KANG [id number] 11:28:47 PROVIDER Camvanessa arzola 2021-06-27 2021-06-27 ambulatory STLMLC STLMLC [id number] NPI:174 00:00:00 00:00:00 [id number] 2021-06-27 2021-06-27 ambulatory STLMLC STLMLC [id number] NPI:174 00:00:00 00:00:00 [id number] 2021-06-23 2021-06-25 Inpatient [facility] Neuro ICU [id number] [facility] 19:26:00 13:47:00 CURTIS 2021-06-23 2021-06-23 Outpatient BCM BCJuan [id number] [facility] 00:00:00 23:59:00 Lamin 2021-06-20 2021-06-20 ambulatory STLMLC STLMLC [id number] NPI:174 00:00:00 00:00:00 [id number] 2021-05-16 2021-05-16 Outpatient DMG DMG [id number] NPI:198 09:00:00 09:00:00 280 [id number] 2021-05-11 2021-05-11 ambulatory STLMLC STLMLC [id number] NPI:174 00:00:00 00:00:00 [id number] 2021-03-272021-03-27 Outpatient KAELYN SALCIDO [facility] [id number] 09:24:05 10:23:37 TIAGO arzola 2021-03-27 2021-03-27 Outpatient KAELYN KANG [facility] [id number] 08:52:08 08:52:14 Cam arzola 2021-03-07 2021-03-07 Emergency SNEHA LEDESMA [facility] Emergency [id number] 10:11:00 12:25:00 MARION arzola Results Test Description [...] NOT 1092) ACCURATE CRE ATININE CLEARANCE IN SC EDICTING GLOMERULAR FILT RATION RATE. ESTIMATED GFR IS NOT APPLICABLE FOR DIALYSIS PATIENTS. Mechanical Laboratory Technician ID - JESSICA MCBC W/PLT COUNT & AUTO [id number] 05:03:29 Test Item Value Reference Range Interpretation [...] (test code = 2801) MR, BRAIN, WITHOUT [id number] 14:58:00Unlisted Reason for Exam - Click Yes and Enter Reason Below->No [facility] : 1935 Sex: MFINAL REPORT [...] IMPRESSION: No acute intracranial findings Signed: Mecca Rae MDReport Verified Date/Time: 06/24/2021 14:58:04 SENSITIVITY TROPONIN [id number] 10:55:23 Test Item Value Reference Range Interpretation Comments HIGH SENSITIVITY 4 pg/ml See_Comment [Automated message] TROPONIN I (test code = The system which [id number]) generated this result transmitted ref erence range: <=35. Th e reference range was not used to interpr et this result as normal/abnormal . Mechanical Laboratory Technician ID - DBThe [employer] SUPERVISOR STAT High Sensitivity Troponin-I results should be used in conjunctionwith other diagnostic information such as ECG, clinical observations and information, and patient symptoms to aid in the diagnosis of MN.HEMOGLOBIN [id number] 08:46:58 Test Item Value Reference Range Interpretation [...] 5.7- 6.4% indicates increased risk for diabetes (prediabetes)."Mechanical Laboratory Technician ID - ADMT4, [id number] 22:53:35 Test Item Value Reference Range Interpretation Comments FREE T4 (BEAKER) (test code = 655) 0.93 ng/dL 0.70-1.48 Mechanical Laboratory Technician ID - DBTSH/FREE T4 IF [id number] 21:45:12 Test Item Value Reference Range Interpretation Comments THYROID STIMULATING HORMONE 9.599 uIU/mL 0.350-4.940 H (BEAKER) (test code = 772) Mechanical Laboratory Technician ID - DBVITAMIN B12 AND [id number] 21:43:08 Test Item Value Reference Range Interpretation Comments VITAMIN B12 525 pg/mL 213-816 (BEAKER) (test code = 774) FOLATE (BEAKER) 14.90 ng/mL See_Comment [Automated message] (test code = 362) The system which generated this result transmitted ref erence range: >=7.00. The reference range was not used to interpr et this result as normal/abnormal . Mechanical Laboratory Technician ID - DBHIGH SENSITIVITY TROPONIN [id number] 21:13:43 Test Item Value Reference Range Interpretation Comments HIGH SENSITIVITY 5 pg/ml See_Comment [Automated message] TROPONIN I (test code = The system which [id number]) generated this result transmitted ref erence range: <=35. Th e reference range was not used to interpr et this result as normal/abnormal . Mechanical Laboratory Technician ID - DBThe [employer] SUPERVISOR STAT High Sensitivity Troponin-I results should be used in conjunctionwith other diagnostic information such as ECG, clinical observations and information, and patient symptoms to aid in the diagnosis of MN.[id number] 21:07:23 Test Item Value Reference Range Interpretation Comments PHOSPHORUS (BEAKER) (test code = 3.5 mg/dL 2.3-4.7 604) Mechanical Laboratory Technician ID - DBLIPID [id number] 21:07:23 Test Item Value Reference Range Interpretation [...] Borderline 130-159 High 160-189 Very High >=190 Mechanical Laboratory Technician ID - [id number] 21:07:22 Test Item Value Reference Range Interpretation Comments MAGNESIUM (BEAKER) (test code = 1.9 mg/dL 1.6-2.6 627) Mechanical Laboratory Technician ID - DBCOMPREHENSIVE METABOLIC [id number] 21:07:22 Test Item Value Reference Range Interpretation [...] S NOT APPLICABLE FOR DIALYSIS PATIEN TS. Mechanical Laboratory Technician ID - DBCALCIUM, [id number] 20:55:01 Test Item Value Reference Range Interpretation Comments CALCIUM IONIZED (BEAKER) (test 1.13 mmol/L 1.12-1.27 code = 698) PH, BLOOD (BEAKER) (test code = 7.38 1810) CBC W/PLT COUNT & AUTO [id number] 20:50:01 Test Item Value Reference Range Interpretation [...] = 2801) TMP HIV 1/2 Ag&Ab Path [id number] 14:05:56 Test Item Value Reference Range Interpretation Comments HIV 1/2 Ag&Ab Negative for HIV-1 Interp (test antigen and code = 9394) HIV-1/HIV-2 FERNAND O antibodies. No GHADA,Dict ated by: laboratory CLAUDIO evidence of HIV Katerina URRUTIA tated infection. If Date/Time: acute HIV 8:05 AM HAND TIER infection is Transcribed Kt e/Time: suspected, 03.08.2021 8:05 AM consider testing CSTElectron ically for HIV-1 RNA. Signed By: LETICIA URRUTIA, on 03.08.2021 8:05 AM Salima CabreraHIV-1/2 Antigen and Antibodies, Fourth [id number] 05:33:43 Test Item Value Reference Range Interpretation Comments HIV 1/2 Ag & Ab, Non Reactive Non Reactive Performed a t: 4th Gen (test code Rick Blood Donor = 9280) [id number] [place], [place] [address] MD CabreraFractionated [id number] 17:22:37 Test Item Value Reference Range Interpretation [...] are outside rep ortable range MD CabreraElectrolyte [id number] 17:22:36 Test Item Value Reference Range Interpretation Comments Sodium Lvl (test code = 141 See_Comment [Au tomated message] The 4129) system which ge nerated this result tra [...] = 103 See_Comment [Auto mated message] The 9262) system which ge nerated this result tra [...] = 11 See_Comment [Aut omated message] The 9685) system which ge nerated this result tra nsmitted reference range : 4 - 14 mEq/L. The refe rence range was not u sed to interpret this result as normal/abnormal . MD CabreraPhosphorus [id number] 17:22:33 Test Item Value Reference Range Interpretation Comments Phosphorus (test code = 6817) 2.8 mg/dL 2.5-4.5 MD CabrreaGlomerular Filtration [id number] 17:22:32 Test Item Value Reference Range Interpretation [...] pat ients 18 and older. According to cipriano dangelo [employer]'s dney Disease Outcome Quality [...] pat ients 18 and older. According to cipriano dangelo [employer]'s Ki dney Disease Outcome [...] . Lab Interpretation Abnormal (test code = 50514-6) MD CabreraCalcium [id number] 17:22:31 Test Item Value Reference Range Interpretation Comments Calcium Lvl (test code = 5258) 9.6 mg/dL 8.4-10.2 MD CabreraTotal [id number] 17:22:30 Test Item Value Reference Range Interpretation Comments Total Protein (test code = 7649) 7.5 g/dL 6.4-8.3 MD CabreraAlbumin [id number] 17:22:29 Test Item Value Reference Range Interpretation Comments Albumin Lvl (test code 4.8 See_Comment [Aut omated message] The = 5793) system which ge nerated this result tra nsmitted reference range : 3.5 - 5.2 gm/dL. The refe rence range was not used to interpret this result as normal/abnormal . MD CabreraMagnesium [id number] 17:22:28 Test Item Value Reference Range Interpretation Comments Magnesium (test code = 6359) 2.2 mg/dL 1.6-2.6 MD CabreraAspartate [id number] 17:22:27 Test Item Value Reference Range Interpretation Comments AST (test code = 13 U/L See_Comment [Automated message] The 8768) system which ge nerated this result transmit nish reference range : <=40. The reference range was not used to interpr et this result as ian l/abnormal. MD CabreraAlkaline [id number] 17:22:26 Test Item Value Reference Range Interpretation Comments Alk Phos (test code = 4768) 91 U/L 40-129 MD [id number] 17:22:24 Test Item Value Reference Range Interpretation Comments ALT (test code = 9 U/L See_Comment [Automated message] The 4705) system which ge nerated this result transmit nish reference range : <=41. The reference range was not used to interpr et this result as ian l/abnormal. MD CabreraGlucose [id number] 17:22:23 Test Item Value Reference Range Interpretation [...] diabetes Lab Interpretation (test Abnormal code = 51463-5) MD Cabrera.Serum [id number] 17:22:22 Test Item Value Reference Range Interpretation Comments Creatinine (test code = 5399) 1.12 mg/dL 0.67-1.17 MD [id number] 17:22:21 Test Item Value Reference Range Interpretation Comments BUN (test code = 5055) 14 mg/dL 6-23 MD Cab[id number] 16:30:26 Test Item Value Reference Range Interpretation Comments Neutrophil % (test code = 58.0 % 42.0-66.0 54824-8) Lymphocyte % (test code = 30.6 % 24.0-44.0 737-7) Monocyte % (test code = 8.7 % 2.0-7.0 H 744-3) Eosinophil % (test code = 1.9 % 1.0-4.0 713-8) Basophil % (test code = 0.6 % 0.0-1.0 707-0) IGRE % (test code = 0.2 % 0.0-0.4 IGRE % c ount 58446-4) includes Metamyelocytes, Myelocytes, and Promyelocytes. Neutrophil Abs (test code 3.07 K/uL 1.70-7.30 = 753-4) Lymphocyte Abs (test code 1.62 K/uL 1.00-4.80 = 732-8) Monocyte Abs (test code = 0.46 K/uL 0.08-0.70 743-5) Eosinophil Abs (test code 0.10 K/uL 0.04-0.40 = 712-0) Basophil Abs (test code = 0.03 K/uL 0.00-0.10 705-4) IG Abs (test code = 0.01 K/uL 0.00-0.04 11354-9) Lab Interpretation (test Abnormal code = 66489-0) MD Cabrera.[id number] 16:30:16 Test Item Value Reference Range Interpretation Comments WBC (test code = 5.3 K/uL 4.0-11.0 6690-2) RBC (test code = 789-8) 4.71 See_Comment [Au tomated message] The system [employer]. generated this result transmitted ref erence range: 4.50 - 6 .00 M/uL. The refer ence range was not u sed to interpret this result as normal/abnor mal. Hgb (test code = 718-7) 13.9 See_Comment L [Au tomated message] The system [employer]. generated this result transmitted ref erence range: 14.0 - 1 8.0 gm/dL. The refe rence range was not u sed to interpret this result as normal/abnor mal. Hct (test code = 42.5 % 40.0-54.0 4544-3) MPV (test code = 787-2) 9.5 fL 4.0-10.4 MCH (test code = 785-6) 29.5 pg 27.0-31.0 MCHC (test code = 32.7 See_Comment [Automate d message] 786-4) The system [employer]. generated this result transmitted ref erence range: 31.0 - 3 6.0 gm/dL. The refe rence range was not u sed to interpret this result as normal/abnor mal. RDW-SD (test code = 42.2 fL 35.1-46.3 78768-5) RDW-CV (test code = 12.8 % 12.0-15.5 [...] cell differential. [Automated mess age] The system [employer] generated this result transmitted ref erence range: <=0.0. T he reference range was not used to int erpret this result as normal/abnormal . Lab Interpretation Abnormal (test code = 82984-7) MD Cabrera
[2021-08-06 17:53] LABS: Urine Blood Trace-intact (Negative); Urine Glucose Negative (Negative); Urine Protein Trace (Negative)
[2021-08-06] MEDS ORDERED: ONDANSETRON 4 MG/2 ML VIAL ONE (18:16)
[2021-08-06 18:18] LABS: Absolute Lymphocytes (CBC) 1.2 K/uL (0.7-4.9); Hematocrit 41.3 % (39.6-49.0); Lymphocytes % 10.3 % (15.3-44.8); MPV 7.6 fL (7.6-11.3); Protime INR 1.12; RBC Red Blood Cell Count 4.69 M/uL (4.33-5.43)
[2021-08-06 18:35] LABS: Albumin 4.1 g/dL (3.4-5.0); Bilirubin Total 0.7 mg/dL (0.2-1.0); Potassium 3.6 mmol/L (3.5-5.1); Protein, Total 7.6 g/dL (6.4-8.2)
--- NOTE | 2021-08-06 19:15 | RAD REPORT ---
EXAM DESCRIPTION: CTAbdomen Pelvis W Contrast - 08/06/2021 7:01 pm CLINICAL HISTORY: Abdominal pain. Abdominal pain, acute, nonlocalized COMPARISON: No comparisons TECHNIQUE: Biphasic CT imaging of the abdomen and pelvis was performed with 100 ml non-ionic IV cont rast. All CT scans are performed using dose optimization technique as appropriate and may include automated exposure control or mA/KV adjustment according to patient size. FINDINGS: Linear atelectasis is present in both lung bases.Small hiatal hernia. The liver, spleen, pancreas, right adrenal gland and kidneys are within normal limits. 12 mm nodule i s present left adrenal gland. No bowel obstruction, free air, free fluid or abscess. Sigmoid diverticulosis coli is present without diverticulitis. Significant stool retention is present throughout the colon. The appendix is normal. No evidence of significant lymphadenopathy. Moderate lumbosacral degenerative changes. Fat containing small bilateral inguinal hernias. IMPRESSION: No acute intra-abdominal or pelvic finding. Sigmoid diverticulosis coli without diverticulitis. Prominent fecal retention throughout the colon.
[2021-08-06] MEDS ORDERED: MORPHINE 4 MG/ML SYR ONE (19:28)
--- NOTE | 2021-08-06 19:35 | ER ---
Nurse's Notes [facility] Name: Chilo Hendricks Jr Age: 86 yrs Sex: Male : 1935 Arrival Date: 08/06/2021 Time: 17:32 Bed 15 Private MD: Diagnosis: Other abdominal pain;Constipation;UTI/ Urinary tract infection, site not specified Presentation: 08/06 17:45 Chief complaint: Patient states: ABD pain that began today; states unable to eat or vg1 drink anything; denies NVD. 17:45 Coronavirus screen: Vaccine status: Patient reports receiving the 2nd dose of the covid vg1 vaccine. Client denies travel out of the [place] in the last 14 days. Ebola Screen: Patient denies exposure to infectious person. Patient denies travel to an Ebola-affected area in the 21 days before illness onset. Initial Sepsis Screen: Does the patient meet any 2 criteria? No. Patient's initial sepsis screen is negative. Does the patient have a suspected source of infection? No. Patient's initial sepsis screen is negative. Risk Assessment: Do you want to hurt yourself or someone else? Patient reports no desire to harm self or others. Onset of symptoms was August 06, 2021. 17:45 Method Of Arrival: Ambulatory vg1 17:45 Acuity: JESUS 3 vg1 Triage Assessment: 17:45 General: Appears uncomfortable, Behavior is calm, cooperative. Pain: Complains of pain vg1 in abdomen Pain currently is 5 out of 10 on a pain scale. Pain began this morning. EENT: No signs and/or symptoms were reported regarding the EENT system. Neuro: Rvias Agitation-Sedation Scale (RASS): 0 - Alert and Calm Level of Consciousness is awake, alert, obeys commands, Oriented to person, place, time, situation. Cardiovascular: Patient's skin is warm and dry. Respiratory: Airway is patent Respiratory effort is even, unlabored. GI: Abdomen is round non-distended, Abd is soft and non tender X 4 quads. Reports intolerance of fluids, intolerance of food, Patient currently denies diarrhea, nausea, vomiting. : No signs and/or symptoms were reported regarding the genitourinary system. Derm: Skin Skin is pink, warm \T\ dry. Musculoskeletal: Circulation, motion, and sensation intact. Historical: - Allergies: 18:07 No Known Allergies; vg1 - Home Meds: 18:07 Warfarin Oral [Active]; Aspirin Oral [Active]; vg1 - PMHx: 18:07 Myocardial infarction; stroke; Hypercholesterolemia; vg1 - PSHx: 18:07 cardiac stent; vg1 - Immunization history:: Client reports receiving the 2nd dose of the Covid vaccine. - Social history:: Smoking status: Patient denies any tobacco usage or history of. Screenin:45 Abuse screen: Denies threats or abuse. Nutritional screening: No deficits noted. vg1 Tuberculosis screening: No symptoms or risk factors identified. Fall Risk No fall in past 12 months (0 pts). No secondary diagnosis (0 pts). IV access (20 points). Ambulatory Aid- None/Bed Rest/Nurse Assist (0 pts). Gait- Normal/Bed Rest/Wheelchair (0 pts) Mental Status- Oriented to own ability (0 pts). Total [place] Fall Scale indicates No Risk (0-24 pts). Assessment: 17:45 Reassessment: SEE TRIAGE. vg1 17:45 GI: vg1 19:20 Pain: Complains of pain in abdomen Pain currently is 6 out of 10 on a pain scale. at ke1 worst was 10 out of 10 on a pain scale. level that patient reports is acceptable is 4 out of 10 on a pain scale. 20:58 Reassessment: Patient states feeling better. Patient states symptoms have improved. ke1 Vital Signs: 17:45 BP 136 / 70; Pulse 94; Resp 16; Temp 99.2(O); Pulse Ox 99% on R/A; Weight 83.91 kg; vg1 Height 5 ft. 8 in. (172.72 cm); Pain 5/10; 17:45 Body Mass Index 28.13 (83.91 kg, 172.72 cm) vg1 ED Course: 17:32 Patient arrived in ED. as 17:45 Con Rodrigez PA is PHCP. [facility] 17:45 Heber Cabrera MD is Attending Physician. [facility] 17:45 Madina Dillon, RN is Primary Nurse. vg1 17:45 Arm band placed on. vg1 17:45 Patient has correct armband on for positive identification. Bed in low position. Call kit [facility] light in reach. Side rails up X2. Adult w/ patient. 18:00 No provider procedures requiring assistance completed. Initial lab(s) drawn, by al, reggie sent to lab. Inserted saline lock: 22 gauge in left antecubital area, using aseptic technique. Blood collected. 18:07 Triage completed. vg1 19:03 Abdomen In Process Unspecified. EDMS 20:58 IV discontinued. ke1 Administered Medications: 18:16 Drug: Zofran (Ondansetron) 4 mg Route: IVP; Site: left antecubital; vg1 19:26 Drug: morphine 4 mg Route: IVP; Site: left antecubital; ke1 20:59 Follow up: Response: Marked relief of symptoms ke1 20:40 Drug: Rocephin (cefTRIAXone) 1 grams Route: IV; Rate: calculated rate; Site: left [facility] antecubital; 20:59 Follow up: Response: No adverse reaction; IV Status: Completed infusion ke1 20:47 Drug: Acetaminophen 650 mg Route: PO; ke1 20:59 Follow up: Response: Marked relief of symptoms ke1 Outcome: 19:35 Discharge ordered by . elisabet 20:57 Discharged to home ambulatory. ke1 20:57 Condition: good 20:57 Discharge instructions given to patient. 21:00 Patient left the ED. ke1 Signatures: Dispatcher [employer] EDMS Con Rodrigez PA PA jmm Martinez, Amelia as Garcia, Victoria, RN RN 1 Shelia Carrera RN RN ke1
--- NOTE | 2021-08-06 19:35 | EDPHYS ---
Physician Documentation [facility] Name: Chilo Hendricks Jr Age: 86 yrs Sex: Male : 1935 Arrival Date: 08/06/2021 Time: 17:32 Bed 15 Private MD: STEVIE Physician Heber Cabrera HPI: 08/06 17:49 This 86 yrs old Male presents to ER via Ambulatory with complaints of Abdominal Pain. jmm 17:49 The patient presents with abdominal pain. Onset: The symptoms/episode began/occurred jmm today. The symptoms do not radiate. Associated signs and symptoms: Pertinent negatives: nausea and vomiting, diarrhea. The symptoms are described as achy. Modifying factors: The symptoms are alleviated by nothing, the symptoms are aggravated by nothing. The patient has not experienced similar symptoms in the past. Historical: - Allergies: 18:07 No Known Allergies; vg1 - Home Meds: 18:07 Warfarin Oral [Active]; Aspirin Oral [Active]; vg1 - PMHx: 18:07 Myocardial infarction; stroke; Hypercholesterolemia; vg1 - PSHx: 18:07 cardiac stent; vg1 - Immunization history:: Client reports receiving the 2nd dose of the Covid vaccine. - Social history:: Smoking status: Patient denies any tobacco usage or history of. ROS: 17:49 Constitutional: Negative for fever, chills, and weight loss, Cardiovascular: Negative jmm for chest pain, palpitations, and edema, Respiratory: Negative for shortness of breath, cough, wheezing, and pleuritic chest pain. 17:49 Abdomen/GI: Positive for abdominal pain, Negative for vomiting, diarrhea. 17:49 All other systems are negative. Exam: 17:49 Constitutional: This is a well developed, well nourished patient who is awake, alert, jmm and in no acute distress. Head/Face: atraumatic. Eyes: EOMI, no conjunctival erythema appreciated ENT: Moist Mucus Membranes Neck: Trachea midline, Supple Chest/axilla: Normal chest wall appearance and motion. Cardiovascular: Regular rate and rhythm. No edema appreciated Respiratory: Normal respirations, no respiratory distress appreciated 17:49 Back: Normal ROM Skin: General appearance color normal MS/ Extremity: Moves all extremities, no obvious deformities appreciated, no edema noted to the lower extremities Neuro: Awake and alert Psych: Behavior is normal, Mood is normal, Patient is cooperative and pleasant 17:49 Abdomen/GI: Inspection: abdomen appears normal, Bowel sounds: normal, Palpation: soft, mild abdominal tenderness, in all quadrants. Vital Signs: 17:45 BP 136 / 70; Pulse 94; Resp 16; Temp 99.2(O); Pulse Ox 99% on R/A; Weight 83.91 kg; vg1 Height 5 ft. 8 in. (172.72 cm); Pain 5/10; 17:45 Body Mass Index 28.13 (83.91 kg, 172.72 cm) vg1 MDM: 17:49 Patient medically screened. [facility] 19:33 Data reviewed: vital signs, nurses notes. Counseling: I had a detailed discussion with [facility] the patient and/or guardian regarding: the historical points, exam findings, and any diagnostic results supporting the discharge/admit diagnosis. 19:33 Counseling: I had a detailed discussion with the patient and/or guardian regarding: lab [facility] results, radiology results, the need for outpatient follow up, to return to the emergency department if symptoms worsen or persist or if there are any questions or concerns that arise at home. ED course: CT unremarkable except for showing diffuse constipation. Patient states he had a normal bowel movement this morning. Patient recommended to have a capful of MiraLAX twice a day and will follow-up with his PCP tomorrow morning for reevaluation. Patient will be put on oral antibiotics for UTI as well. Patient and family otherwise given strict return precautions. Family understood and agrees plan of care.. 08/06 17:52 Order name: CBC with Diff; Complete Time: 18:25 [facility] 08/06 17:52 Order name: CMP; Complete Time: 18:36 [facility] 08/06 17:52 Order name: Lipase; Complete Time: 18:36 [facility] 08/06 17:52 Order name: PT-INR; Complete Time: 18:19 [facility] 08/06 17:53 Order name: Urine Dipstick-Ancillary; Complete Time: 18:19 [facility] 08/06 17:54 Order name: Urine Culture [facility] 08/06 17:52 Order name: IV Saline Lock; Complete Time: 18:06 [facility] 08/06 17:53 Order name: CT Abd/Pelvis - IV Contrast Only [facility] 08/06 17:57 Order name: Urine Dipstick-Ancillary [facility] 08/06 17:57 Order name: Abdomen ; Complete Time: 19:26 [facility] 08/06 17:52 Order name: Labs collected and sent; Complete Time: 18:06 [facility] 08/06 17:53 Order name: Urine Dipstick-Ancillary (obtain specimen); Complete Time: 17:54 [facility] Administered Medications: 18:16 Drug: Zofran (Ondansetron) 4 mg Route: IVP; Site: left antecubital; vg1 19:26 Drug: morphine 4 mg Route: IVP; Site: left antecubital; ke1 20:59 Follow up: Response: Marked relief of symptoms ke1 20:40 Drug: Rocephin (cefTRIAXone) 1 grams Route: IV; Rate: calculated rate; Site: left [facility] antecubital; 20:59 Follow up: Response: No adverse reaction; IV Status: Completed infusion ke1 20:47 Drug: Acetaminophen 650 mg Route: PO; ke1 20:59 Follow up: Response: Marked relief of symptoms ke1 Disposition Summary: 08/06/21 19:35 Discharge Ordered Location: Home [facility] Condition: Stable [facility] Diagnosis - Other abdominal pain jm - Constipation [facility] - UTI/ Urinary tract infection, site not specified [facility] Followup: [facility] - With: Private Physician - When: 2 - 3 days - Reason: Recheck today's complaints, Continuance of care, Re-evaluation by your physician Discharge Instructions: - Discharge Summary Sheet [facility] - Abdominal Pain, Adult jm - Urinary Tract Infection, Adult [facility] Forms: - Medication Reconciliation Form [facility] - Thank You Letter [facility] - Antibiotic Education [facility] - Prescription Opioid Use [facility] Prescriptions: - Miralax 17 gram Oral powder in packet - take 1 packet by ORAL route 2 times per day; 60 packet; Refills: 0, Product [facility] Selection Permitted - Cephalexin 500 mg Oral Capsule - take 1 capsule by ORAL route every 8 hours for 10 days; 30 capsule; Refills: 0, [facility] Product Selection Permitted Signatures: Dispatcher [employer] [facility] Con Rodrigez PA PA jmm Garcia, Victoria RN RN vg1 Maggy Gomez RN RN ld1 Shelia Carrear RN RN ke1
[2021-08-06] MEDS ORDERED: ACETAMINOPHEN 325 MG TABLET ONE (20:41)
[2021-08-06] MEDS ORDERED: NA CHLORIDE 0.9% 50 ML ONE (20:41)
[2021-08-06] MEDS ORDERED: CEFTRIAXONE 1000 MG/VIAL ONE (20:41)
[2021-08-06 23:27] VITALS: BP 136/70; TEMP 99.2; O2SAT 99
== END 2021-08-06 21:00 | disposition home or self-care (01) ==
LOC: ER 17:29
DX: N39.0 Urinary tract infection, site not specified (principal); K59.00 Constipation, unspecified; E78.00 Pure hypercholesterolemia, unspecified; I25.2 Old myocardial infarction; Z79.01 Long term (current) use of anticoagulants; Z79.82 Long term (current) use of aspirin; Z86.73 Personal history of transient ischemic attack (TIA), and cerebral infarction without residual deficits; Z95.818 Presence of other cardiac implants and grafts
CPT/HCPCS: 87088; 85025; 87086; 36415; 85610; 81003; 83690; 80053; 74177; Q9967; J2405; 87077; 87186; 96365; 96375; 99284

== ENCOUNTER 2022-09-28 23:55 | Observation (INO) | payer MEDICARE ==
--- OUTSIDE RECORDS SUMMARY | 2022-09-28 23:58 | XMS REPORT | Clinical Summary ---
:1935 Author Organization [facility] Address [address] [place] [id number] Care Team Providers Name Role Phone Destin Persaud MD Primary Care Provider Allergies No known active allergies Medications No known medications Active Problems Not on file Family History Medical History Relation Name Comments Brain cancer Son Relation Name Status Comments Son Alive Social History Tobacco Use Types Packs/Day Years Used Date Smoking Tobacco: Never Smokeless Tobacco: Never Alcohol Use Standard Drinks/Week Comments Never 0 [...] drinks on one occasion? 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
--- OUTSIDE RECORDS SUMMARY | 2022-09-28 23:59 | XMS REPORT | Continuity of Care Document ---
:1935 Author Organization [facility] t Address [address] [place] [address] Care Team Providers Name Role Phone [phone] Primary Care Physician Unavailable Yolanda Li Attending Clinician Unavailable SYSTEM, PROVIDER NOT IN Attending Clinician Unavailable Sindy_S Attending Clinician Unavailable CURTIS LEYVA Attending Clinician Unavailable ZAYRA RIVAS Attending Clinician Unavailable TIAGO SALCIDO Attending Clinician Unavailable MARION LEDESMA Attending Clinician Unavailable Sindy_S Admitting Clinician Unavailable ZAYRA RIVAS Admitting Clinician Unavailable Payers Payer Name Policy Type Policy Number Effective Date Expiration Date S williamesther [employer] [id number] 2021 (MEDICARE 00:00:00 REPLACEMENT HMO) DEVOTED HEALTH MGD [id number] 2021 [facility] 00:00:00 HU[employer] CHOICE [id number] 2021 MEDICARE O 00:00:00 Problems Condition Condition Condition Status Onset Resolution Last Treating Co mments Source Name Details Category Date Date Treatment Clinician Date HTN HTN Disease Recurre [facility]hypertens (hypertens nce 3-27 Margy kes ion) ion) 00:00: Medical 00 Center CAD CAD Disease Recurre [facility] (coronary (coronary nce 06-24 [facility] artery artery 00:00: Medical disease) disease) 00 Center Chest pain Chest pain Disease [facility] 00 [place] Left arm Left arm Disease Active [facility] 00 [place] Stroke Stroke Disease [facility]ur[facility]: Medical 00 [place] [id number] Coronary Problem Comm on artery Spirit disease - [facility] involving [facility] 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[place]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 [id number] Skin Problem Common cancer Spirit - [facility] [id number] H/O heart Problem Com mon artery Spirit stent - [facility] [id number] 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, - CHI unspecifie d hearing [facility] loss type Medical Center [id number] Slow Problem Common transit Spirit constipati - [facility] on [facility] Allergies, Adverse Reactions, Alerts Allergy Allergy Status Severity Reaction(s) Onset Inactive Treating Comm ents Source Name Type Date Date Clinician NO KNOWN Allergy Active [facility] Family History Family Member Diagnosis Comments Start Date Stop Date Source Natural son Brain cancer [facility] Social History Social Habit Start Date Stop Date Quantity Comments Source History of Common Spirit - Tobacco Use [facility] History [facility] University o f Alcohol Std [facility] History [facility] University o f Alcohol Binge [place] MD Lora quintanilla [facility] Tobacco use and 2021-03-27 2021-03-27 Smokeless tobacco Un iversity of exposure 00:00:00 00:00:00 non-user [facility] Alcohol intake 2021-03-27 2021-03-27 Lifetime University of 00:00:00 00:00:00 non-drinker Olivia mcdonald (finding) [facility] History SDOH 2021-03-27 2021-03-27 1 University o f Alcohol Frequency 00:00:00 00:00:00 [facility] Sex Assigned At [birth year] [facility] 00:00:00 00:00:00 Medical Center Smoking Status Start Date Stop Date Source Never Smoker Common [facility] Medications Ordered Filled Start Stop Current Ordering Indication Dosage Frequency Signature Comments Components Source Medication Medication Date Date Medication? Clinician (SIG) Name Name Cephalexin Cephalexin 2- No 1{capsu BID Cephalexin 500 MG 500 MG 09-05 06-15 le} 500 MG 00:00: 00:00 00 :00 aspirin 325 2021-0 Yes acute 650mg QD Take [address] MG tablet 3- myocardial mg by Nicole es 14:53: infarction mouth Medica l 44 daily. Center atorvastati 2022- No 80mg QD Take [address] n (LIPITOR) -28 -28 tablet (80 L ukes 80 MG 00:00: 23:59 mg total) Medica l tablet 00 :00 by mouth Center nightly. Solumedrol Solumedrol No 80mg C ommon 40mg/1ml 40mg/1ml 3-23 Spirit 00:00: - [facility]I [facility] Cetirizine Cetirizine 2021-0 No 1{table BID Cetirizine HCl 5 MG HCl 5 MG 3-23 t} HCl 5 MG 00:00: 00 Solumedrol Solumedrol 2021-0 No 80mg C ommon 40mg/1ml 40mg/1ml 3-23 Spirit 00:00: - CHI 00 [facility] Cetirizine Cetirizine 2021-0 No 1{table BID Cetirizine HCl 5 MG HCl 5 MG 3-23 t} HCl 5 MG 00:00: 00 Solumedrol Solumedrol 2021-0 No 80mg C ommon 40mg/1ml 40mg/1ml 3-23 Spirit 00:00: - [facility]I 00 [facility] Cetirizine Cetirizine 2021-0 No 1{table BID Cetirizine HCl 5 MG HCl 5 MG 3-23 t} HCl 5 MG 00:00: 00 Solumedrol Solumedrol 2021-0 No 80mg C ommon 40mg/1ml 40mg/1ml 3-23 Spirit 00:00: - [facility]I 00 [facility] Cetirizine Cetirizine 2021-0 No 1{table BID Cetirizine HCl 5 MG HCl 5 MG 3-23 t} HCl 5 MG 00:00: 00 Solumedrol Solumedrol 2021-0 No 80mg C ommon 40mg/1ml 40mg/1ml 3-23 Spirit 00:00: - [facility]I 00 [facility] Cetirizine Cetirizine 2021-0 No 1{table BID Cetirizine HCl 5 MG HCl 5 MG 3-23 t} HCl 5 MG 00:00: 00 Solumedrol Solumedrol 2021-0 No 80mg C ommon 40mg/1ml 40mg/1ml -23 Spirit 00:00: - [facility]I 00 [facility] Cetirizine Cetirizine 2021-0 No 1{table BID Cetirizine HCl 5 MG HCl 5 MG 3-23 t} HCl 5 MG 00:00: 00 Clobetasol Clobetasol 2021-0 2- No 1{appli BID Clobetasol Propionate Propionate 3- 04-20 cation} Propionate 0.05 % 0.05 % 00:00: 00:00 0.05 % 00 :00 Clobetasol Clobetasol 2021-0 2- No 1{appli BID Clobetasol Propionate Propionate 3- 04-20 cation} Propionate 0.05 % 0.05 % 00:00: 00:00 0.05 % 00 :00 Clobetasol Clobetasol 2021-0 2- No 1{appli BID Clobetasol Propionate Propionate 3-23 04-20 cation} Propionate 0.05 % 0.05 % 00:00: 00:00 0.05 % 00 :00 Benadryl Benadryl 2021-0 2- No 1{table Benadryl Allergy 25 Allergy 25 06-20-30 t_at_be Allergy 25 MG MG 00:00: 00:00 dtime_a MG 00 :00 s_neede d} Benadryl Benadryl 2021-0 2- No 1{table Benadryl Allergy 25 Allergy 25 3- 03-30 t_at_be Allergy 25 MG MG 00:00: 00:00 dtime_a MG 00 :00 s_neede d} Benadryl Benadryl 2021-0 2- No 1{table Benadryl Allergy 25 Allergy 25 3-23 30 t_at_be Allergy 25 MG MG 00:00: 00:00 dtime_a MG 00 :00 s_neede d} Solumedrol Solumedrol 2021-0 No C ommon 125mg/2ml 125mg/2ml 2-11 Spiri t 00:00: - CHI 00 [facility] Solumedrol Solumedrol 2021-0 No C ommon 125mg/2ml 125mg/2ml 2-11 Spiri t 00:00: - CHI 00 [facility] Solumedrol Solumedrol 2021-0 No C ommon 125mg/2ml 125mg/2ml 2-11 Spiri t 00:00: - CHI 00 [facility] Tricinolo Tricinolo 2021-0 No 1{appli BID Triamcinol ne ne 2-11 cation_ one Acetonide Acetonide 00:00: to_affe Acetonide 0.1 % 0.1 % 00 cted_ar 0.1 % ea} T[facility]inolo [facility] 2021-0 No 1{appli BID Triamcinol ne ne 2-11 cation_ one Acetonide Acetonide 00:00: to_affe Acetonide 0.1 % 0.1 % 00 cted_ar 0.1 % ea} Solumedrol Solumedrol 2021-0 No C ommon 125mg/2ml 125mg/2ml 2-11 Spiri t 00:00: - CHI 00 [facility] T[facility] 2021-0 No 1{appli BID Triamcinol ne ne 2-11 cation_ one Acetonide Acetonide 00:00: to_affe Acetonide 0.1 % 0.1 % 00 cted_ar 0.1 % ea} Solumedrol Solumedrol 2021-0 No C ommon 125mg/2ml 125mg/2ml 2-11 Spiri t 00:00: - CHI 00 [facility] 2021-0 No 1{appli BID Triamcinol ne ne 2-11 cation_ one Acetonide Acetonide 00:00: to_affe Acetonide 0.1 % 0.1 % 00 cted_ar 0.1 % ea} Solumedrol Solumedrol No C ommon 125mg/2ml 125mg/2ml 05-11 Spiri t 00:00: - CHI 00 [facility] Clopidogrel Clopidogrel No 1{table QD Clopidogre Bisulfate Bisulfate t} l 75 MG 75 MG Bisulfate 75 MG Aspirin 81 Aspirin 81 No 1{table QD Aspirin 81 81 MG 81 MG t} 81 MG Atorvastati Atorvastati No Atorvastat n Calcium n Calcium in Calcium 80 MG 80 MG 80 MG Aspirin 81 Aspirin 81 No 1{table QD Aspirin 81 81 MG 81 MG t} 81 MG Clopidogrel Clopidogrel No 1{table QD Clopidogre Bisulfate Bisulfate t} l 75 MG 75 MG Bisulfate 75 MG Atorvastati Atorvastati No Atorvastat n Calcium n Calcium in Calcium 80 MG 80 MG 80 MG Clopidogrel Clopidogrel No 1{table QD Clopidogre Bisulfate Bisulfate t} l 75 MG 75 MG Bisulfate 75 MG Aspirin 81 Aspirin 81 No 1{table QD Aspirin 81 81 MG 81 MG t} 81 MG Atorvastati Atorvastati No Atorvastat n Calcium n Calcium in Calcium 80 MG 80 MG 80 MG Medrol 4 MG Medrol 4 MG No Medrol 4 MG Medrol 4 MG Medrol 4 MG No Medrol 4 MG Medrol 4 MG Medrol 4 MG No Medrol 4 MG Medrol 4 MG Medrol 4 MG No Medrol 4 MG Vital Signs Vital Name Observation Time Observation Value Comments Source height 2022-03-20 16:20:00 66 [in_i] [facility] weight 2022-03-20 16:20:00 189.2 [lb_av] Common [facility] temperature 2022-03-20 16:20:00 97.5 [degF] [facility] bmi 2022-03-20 16:20:00 30.53 kg/m2 [facility] oximetry 2022-03-20 16:20:00 96 % [facility] respiratory rate 2022-03-20 16:20:00 16 /min Comm on [facility] blood pressure 2022-03-20 16:20:00 136 mm[Hg] Common [facility] - systolic [facility] blood pressure 2022-03-20 16:20:00 73 mm[Hg] Common [facility] - diastolic [facility] height 2021-09-05 15:20:00 66 [in_i] [facility] weight 2021-09-05 15:20:00 183 [lb_av] Common S pirit [facility] temperature 2021-09-05 15:20:00 98.2 [degF] Common S pirit [facility] bmi 2021-09-05 15:20:00 29.53 kg/m2 Common S pirit [facility] oximetry 2021-09-05 15:20:00 96 % Common S [facility] respiratory rate 2021-09-05 15:20:00 16 /min Comm on [facility] blood pressure 2021-09-05 15:20:00 128 mm[Hg] Common [facility] - systolic [facility] blood pressure 2021-09-05 15:20:00 66 mm[Hg] Common [facility] - diastolic [facility] height 2021-08-07 08:00:00 66 [in_i] Common S [facility] weight 2021-08-07 08:00:00 183.6 [lb_av] Common [facility] temperature 2021-08-07 08:00:00 97.9 [degF] Common S pirit [facility] bmi 2021-08-07 08:00:00 29.63 kg/m2 Common S pirit [facility] oximetry 2021-08-07 08:00:00 95 % Common S pirit [facility] respiratory rate 2021-08-07 08:00:00 16 /min Comm on [facility] blood pressure 2021-08-07 08:00:00 128 mm[Hg] Common [facility] - systolic [facility] blood pressure 2021-08-07 08:00:00 66 mm[Hg] Common [facility] - diastolic [facility] height 2021-06-27 11:00:00 66 [in_i] Common S [facility] weight 2021-06-27 11:00:00 184.4 [lb_av] [facility] temperature 2021-06-27 11:00:00 97.1 [degF] Common S pirit [facility] bmi 2021-06-27 11:00:00 29.76 kg/m2 Common S [facility] oximetry 2021-06-27 11:00:00 96 % Common [facility] respiratory rate 2021-06-27 11:00:00 16 /min Comm on [facility] blood pressure 2021-06-27 11:00:00 138 mm[Hg] Common [facility] - systolic [facility] blood pressure 2021-06-27 11:00:00 72 mm[Hg] Common [facility] - diastolic [facility] height 2021-06-27 11:00:00 66 [in_i] Common [facility] weight 2021-06-27 11:00:00 184.4 [lb_av] [facility] temperature 2021-06-27 11:00:00 97.1 [degF] Common [facility] bmi 2021-06-27 11:00:00 29.76 kg/m2 [facility] oximetry 2021-06-27 11:00:00 96 % Common S [facility] respiratory rate 2021-06-27 11:00:00 16 /min Comm on [facility] blood pressure 2021-06-27 11:00:00 138 mm[Hg] Common [facility] - systolic [facility] blood pressure 2021-06-27 11:00:00 72 mm[Hg] Common [facility] - diastolic [facility] HEIGHT 2021-06-23 20:00:00 170.2 cm WEIGHT 2021-06-23 20:00:00 78.2 kg HEIGHT 2021-06-23 20:00:00 170.2 cm WEIGHT 2021-06-23 20:00:00 78.2 kg height 2021-06-20 11:20:00 66 [in_i] Common [facility] weight 2021-06-20 11:20:00 185.6 [lb_av] [facility] temperature 2021-06-20 11:20:00 97.8 [degF] Common [facility] bmi 2021-06-20 11:20:00 29.95 kg/m2 [facility] oximetry 2021-06-20 11:20:00 98 % [facility] respiratory rate 2021-06-20 11:20:00 16 /min Comm on [facility] blood pressure 2021-06-20 11:20:00 134 mm[Hg] Common [facility] - systolic [facility] blood pressure 2021-06-20 11:20:00 76 mm[Hg] [facility] diastolic [facility] height 2021-05-11 10:40:00 66 [in_i] [facility] weight 2021-05-11 10:40:00 184.4 [lb_av] [facility] temperature 2021-05-11 10:40:00 98.1 [degF] [facility] bmi 2021-05-11 10:40:00 29.76 kg/m2 [facility] oximetry 2021-05-11 10:40:00 97 % [facility] respiratory rate 2021-05-11 10:40:00 16 /min Comm on [facility] blood pressure 2021-05-11 10:40:00 132 mm[Hg] [facility] systolic [facility] blood pressure 2021-05-11 10:40:00 60 mm[Hg] [facility] diastolic [facility] Procedures This patient has no known procedures. Plan of Care Planned Activity Planned Date Details Comments Source Future Scheduled 2022-11-[address] [facility] Test 00:00:00 (Season Ended) [code Medical Center = Influenza Vaccine (Season Ended)] Future Scheduled 2022-06-[address] [facility] Test 00:00:00 WELLNESS (YEAR 2 or Medical Center FIRST YEAR if no IPPE) [code = MEDICARE ANNUAL WELLNESS (YEAR 2 or FIRST YEAR if no IPPE)] Future Scheduled 2022-03-[address] [facility] Test 00:00:00 (12+) [code = Medical Center DEPRESSION SCREENING (12+)] Future Scheduled 2022-03-31 FALLS RISK SCREENING [facility] Test 00:00:00 [code = FALLS RISK Medical C enter SCREENING] Future Scheduled 2022-03-28 COVID-19 Vaccination [facility] Test 13:24:43 (#1) [code = COVID-19 [facility] Vaccination (#1)] Center Future Scheduled 1985 SHINGLES VACCINES ([address] [facility] Test 00:00:00 of 2) [code = Medical Center SHINGLES VACCINES (1 of 2)] Future Scheduled 1954 DTAP/TDAP/TD VACCINES [facility] Test 00:00:00 (1 - Tdap) [code = Medical C enter DTAP/TDAP/TD VACCINES (1 - Tdap)] Future Scheduled [address] [facility] Test 00:00:00 Counseling and Medical Cente r Screening (12+) [code = Tobacco Cessation Counseling and Screening (12+)] Future Scheduled 1941 PNEUMOCOCCAL 65+ YRS [facility] Test 00:00:00 (1 - PCV) [code = Medical Ce nter PNEUMOCOCCAL 65+ YRS (1 - PCV)] Future Scheduled 1935 COVID-19 VACCINE (#1) [facility] Test 00:00:00 [code = COVID-[address] VACCINE (#1)] Encounters Start End Encounter Admission Attending Care Care Encounter Source Date/Time Date/Time Type Type Clinicians Facility Department ID 2022-09-03 Outpatient ELADIO Li [facility] [id number] Common 14:27:01 Yolanda [id number] Spirit - [facility] 2022-07-01 Outpatient ELADIO Li [facility] [id number] Common 07:56:00 Yolanda [id number] [facility] 2022-03-19 Outpatient Li, STLMLC STLMLC [id number] Common 13:32:03 Yolanda [facility] 2022-03-18 Outpatient Li, STLMLC STLMLC [id number] Common 15:21:01 Yolanda [facility] 2021-09-24 Outpatient Li, STLMLC STLC [id number] Common 14:16:03 Yolanda [facility] 2021-08-06 Outpatient Li, STLMLC STLC [id number] Common 16:54:02 Yolanda [facility] 2021-06-25 Outpatient Li, STLMLC STLC [id number] Common 14:10:03 Yolanda [facility] 2021-05-11 Outpatient Li, STLMLC STLC [id number] Common 10:00:03 Yolanda [facility] 2021-05-03 Outpatient [facility] JORGE LUIS [id number] 11:28:47 PROVIDER Cam arzola 2022-05-29 2022-05-29 Outpatient Fulminar_S DMG DMG [id number] [facility]oted 00:00:00 00:00:00 [id number] Medica l Group 2022-05-29 2022-05-29 Outpatient Fulminar_S DMG DMG [id number] [facility] 00:00:00 00:00:00 [id number] Medica l Group 2022-03-20 2022-03-20 OFFICE STLMLC STLC [id number] Co mmon 00:00:00 00:00:[address] [facility] 4 [facility] 2022-02-26 2022-02-26 Outpatient Fulminar_S DMG DMG [id number] [facility] 00:00:00 00:00:00 [id number] Medica l Group 2021-10-12 2021-10-12 Outpatient DMG DMG [id number] [facility] 03:03:00 03:03:00 [id number] Medica l Group 2021-09-05 2021-09-05 OFFICE STLMLC STLMLC [id number] Co mmon 00:00:00 00:00:00 VISIT Spirit ESTAB PT - [facility]I LEVEL 2 [facility] 2021-08-07 2021-08-07 OFFICE STLMLC STLMLC [id number] Co mmon 00:00:00 00:00:00 VISIT EST Spir it PT LEVEL 3 - CHI [facility] 2021-06-27 2021-06-27 (MCR WELL) STLMLC STLMLC [id number] Common 00:00:00 00:00:00 Medicare Spiri t Wellness - CH[facility] 2021-06-27 2021-06-27 OFFICE STLMLC STLMLC [id number] Co mmon 00:00:00 00:00:00 VISIT EST Spir it PT LEVEL 3 - CHI [facility] 2021-06-23 2021-06-25 Inpatient ER [facility] Neuro ICU [id number] SLE 19:26:00 13:47:00 CURTIS 2021-06-20 2021-06-20 OFFICE STLMLC STLMLC [id number] Co mmon 00:00:00 00:00:00 VISIT EST Spir it PT LEVEL 3 - CH[facility] 2021-05-16 2021-05-16 Outpatient DMG DM [id number] [facility] 09:00:00 09:00:00 [id number] Medica l Group 2021-05-11 2021-05-11 OFFICE STLMLC STLMLC [id number] Co mmon 00:00:00 00:00:00 VISIT NEW Spir it PT LEVEL 3 - CH[facility] 2021-03-27 2021-03-27 Outpatient EL JORGE LUIS SALCIDO MDA [id number] 09:24:05 10:23:37 TIAGO arzola 2021-03-27 2021-03-27 Outpatient EL JORGE LUIS KANG [id number] 08:52:08 08:52:14 Cam arzola 2021-03-07 2021-03-07 Emergency UR JORGE LUIS LEDESMA Emergency [id number] 10:11:00 12:25:00 BESIM Cam o n Results Test Description Test Time Test Comments [...] NOT 1092) ACCURATE CRE ATININE CLEARANCE IN DE EDICTING GLOMERULAR FILT RATION RATE. ESTIMATED GFR IS NOT APPLICABLE FOR DIALYSIS PATIENTS. [employer] Supervisor ID - JESSICA MCBC W/PLT COUNT & AUTO [id number] 05:03:29 Test Item Value Reference Range Interpretation [...] (test code = 2801) MR, BRAIN, WITHOUT [id number] 14:58:00Unlisted Reason for Exam - Click Yes and Enter Reason Below->No [facility] : 1935 Sex: MFINAL REPORTPATIENT ID: [id number] MR, BRAIN, WITHOUT CONTRAST INDICATION: Stroke, follow [...] No acute intracranial findings Signed: Mecca Rae Verified Date/Time: 06/24/2021 14:58:04 HIGH SENSITIVITY TROPONIN [id number] 10:55:23 Test Item Value Reference Range Interpretation Comments HIGH SENSITIVITY 4 pg/ml See_Comment [Automated message] TROPONIN I (test code = The system which [id number]) generated this result transmitted ref erence range: <=35. Th e reference range was not used to interpr et this result as normal/abnormal . [employer] Supervisor ID - DBThe COST ESTIMATING CLERK STAT High Sensitivity Troponin-I results should be used in conjunctionwith other diagnostic information such as ECG, clinical observations and information, and patient symptoms to aid in the diagnosis of IL.HEMOGLOBIN [id number] 08:46:58 Test Item Value Reference Range Interpretation Comments HEMOGLOBIN A1C 5.5 % See_Comment [Automated m essage] ELECTROPHORESIS (Magiq) The system which (test code = 3811) generated this result transmitted ref erence range: <=5.6%. The reference range was not used to int erpret this result as normal/abnormal . "The A1c is measured using a NGSP-certified method. HbA1c value equal to or greater than 6.5% as thediagnosis cutoff for diabetes. An HbA1c value of 5.7- 6.4% indicates increased risk for diabetes (prediabetes)."[employer] Supervisor ID - [id number], [id number] 22:53:35 Test Item Value Reference Range Interpretation Comments FREE T4 (Magiq) (test code = 655) 0.93 ng/dL 0.70-1.48 [employer] Supervisor ID - DBTSH/FREE T4 IF [id number] 21:45:12 Test Item Value Reference Range Interpretation Comments THYROID STIMULATING HORMONE 9.599 uIU/mL 0.350-4.940 H (BEAKER) (test code = 772) [employer] Supervisor ID - DBVITAMIN [id number] AND [id number] 21:43:08 Test Item Value Reference Range Interpretation Comments VITAMIN B12 525 pg/mL 213-816 (BEAKER) (test code = 774) FOLATE (AKER) 14.90 ng/mL See_Comment [Automated message] (test code = 362) The system which generated this result transmitted ref erence range: >=7.00. The reference range was not used to interpr et this result as normal/abnormal . [employer] Supervisor ID - DBHIGH SENSITIVITY TROPONIN [id number] 21:13:43 Test Item Value Reference Range Interpretation Comments HIGH SENSITIVITY 5 pg/ml See_Comment [Automated message] TROPONIN I (test code = The system which [id number]) generated this result transmitted ref erence range: <=35. Th e reference range was not used to interpr et this result as normal/abnormal . [employer] Supervisor ID - DBThe COST ESTIMATING CLERK STAT High Sensitivity Troponin-I results should be used in conjunctionwith other diagnostic information such as ECG, clinical observations and information, and patient symptoms to aid in the diagnosis of IL.[id number] 21:07:23 Test Item Value Reference Range Interpretation Comments PHOSPHORUS (BEAKER) (test code = 3.5 mg/dL 2.3-4.7 604) [employer] Supervisor ID - DBLIPID [id number] 21:07:23 Test Item Value Reference Range Interpretation Comments TRIGLYCERIDES (BEAKER) (test code = 224 mg/dL 540) CHOLESTEROL (BEAKER) (test code = 258 mg/dL 631) HDL CHOLESTEROL (BEAKER) (test code 40 mg/dL = 976) LDL CHOLESTEROL CALCULATED (BEAKER) 173 mg/dL (test code = 633) Triglyceride Reference Range: Low Risk <150 Borderline 150-199 High Risk 200- 499 Very High Risk >=500Cholesterol Reference Range: Low Risk <200 Borderline 200-239 High Risk >240HDL Cholesterol Reference Range: Low Risk >=60 High Risk <40LDL Cholesterol Reference Range: Optimal <100 Near Optimal 100-129 Borderline 130-159 High 160-189 Very High >=190 [employer] Supervisor ID - DBCOMPREHENSIVE METABOLIC [id number] 21:07:22 Test Item Value Reference Range Interpretation [...] S NOT APPLICABLE FOR DIALYSIS PATIEN TS. [employer] Supervisor ID - [id number] 21:07:22 Test Item Value Reference Range Interpretation Comments MAGNESIUM (BEAKER) (test code = 1.9 mg/dL 1.6-2.6 627) [employer] Supervisor ID - DBCALCIUM, [id number] 20:55:01 Test Item Value Reference Range Interpretation Comments CALCIUM IONIZED (BEAKER) (test 1.13 mmol/L 1.12-1.27 code = 698) PH, BLOOD (BEAKER) (test code = 7.38 1810) CBC W/PLT COUNT & AUTO [id number] 20:50:01 Test Item Value Reference Range Interpretation [...]
[2022-09-29 00:28] LABS: Absolute Lymphocytes (CBC) 2.1 K/uL (0.7-4.9); Hematocrit 36.7 % (39.6-49.0); Lymphocytes % 33.2 % (15.3-44.8); MPV 7.3 fL (7.6-11.3); RBC Red Blood Cell Count 4.17 M/uL (4.33-5.43)
[2022-09-29 00:31] LABS: Protime INR 1.05
[2022-09-29 00:48] LABS: ALT/SGPT 23 U/L (16-61); AST/SGOT 19 U/L (15-37); Albumin 3.6 g/dL (3.4-5.0); Alkaline Phosphatase 96 U/L (45-117); BUN Blood Urea Nitrogen 13 mg/dL (7-18); Bicarbonate 27 mEq/L (21-32); Bilirubin Total 0.3 mg/dL (0.2-1.0); Glomerular Filtration Rate 85 ml/min (=/>90); Glucose Level 104 mg/dL (74-106); Magnesium 2.2 mg/dL (1.6-2.4); NT PRO-BNP 175 pg/mL (<450); Potassium 3.9 mEq/L (3.5-5.1); Protein, Total 6.7 g/dL (6.4-8.2); Sodium Level 136 mEq/L (136-145); Troponin High Sensitivity 5.7 pg/mL (<58.9)
[2022-09-29 00:54] LABS: Bilirubin Direct < 0.1 mg/dL (0-0.2); Bilirubin Indirect, Calculated ND mg/dL (0.2-0.8)
[2022-09-29] MEDS ORDERED: ACETAMINOPHEN 500 MG TAB PO PRN (03:22)
[2022-09-29] MEDS ORDERED: ONDANSETRON 4 MG/2 ML VIAL IV PRN (03:22)
[2022-09-29] MEDS ORDERED: ENOXAPARIN 80 MG/0.8 ML SQ ONE (03:30)
--- NOTE | 2022-09-29 03:37 | ER ---
Nurse's Notes [facility] Name: Chilo Hendricks Jr Age: 87 yrs Sex: Male : 1935 Arrival Date: 09/28/2022 Time: 23:55 Bed 17 Private MD: Diagnosis: Unstable angina Presentation: 09/29 00:09 Chief complaint: EMS states: We were toned out for chest pain times 1 week. He started vc1 feeling dizzy. Coronavirus screen: Vaccine status: Patient reports receiving the 2nd dose of the covid vaccine. Moderna Client denies travel out of the [place] in the last 14 days. At this time, the client does not indicate any symptoms associated with coronavirus-19. Ebola Screen: Patient negative for fever greater than or equal to 101.5 degrees Fahrenheit, and additional compatible Ebola Virus Disease symptoms Patient denies exposure to infectious person. Patient denies travel to an Ebola-affected area in the 21 days before illness onset. No symptoms or risks identified at this time. Initial Sepsis Screen: Does the patient meet any 2 criteria? No. Patient's initial sepsis screen is negative. Does the patient have a suspected source of infection? No. Patient's initial sepsis screen is negative. Risk Assessment: Do you want to hurt yourself or someone else? Patient reports no desire to harm self or others. Onset of symptoms was September 22, 2022. 00:09 Method Of Arrival: [facility] vc1 00:09 Acuity: JESUS 3 vc1 00:12 Care prior to arrival: Medication(s) given: ASA, 81 mg, x 4, Nitroglycerin, 0.4 mg SL vc1 IV initiated. 18 GA, in the left forearm. Triage Assessment: 00:13 General: Appears in no apparent distress. comfortable, Behavior is calm, cooperative, vc1 appropriate for age. Pain: Complains of pain in anterior aspect of left upper chest Pain does not radiate. Pain currently is 4 out of 10 on a pain scale. EENT: No deficits noted. No signs and/or symptoms were reported regarding the EENT system. Neuro: Level of Consciousness is awake, alert, obeys commands, Oriented to person, place, time, situation, Appropriate for age Reports dizziness. Cardiovascular: Reports chest pain, dizziness Chest pain is described as mild, quality is pressure, is located in left began week ago. Respiratory: Airway is patent Respiratory effort is even, unlabored, Respiratory pattern is regular, symmetrical. GI: No deficits noted. No signs and/or symptoms were reported involving the gastrointestinal system. : No deficits noted. No signs and/or symptoms were reported regarding the genitourinary system. Derm: No deficits noted. No signs and/or symptoms reported regarding the dermatologic system. Musculoskeletal: No deficits noted. No signs and/or symptoms reported regarding the musculoskeletal system. Historical: - Allergies: 00:11 No Known Allergies; vc1 - Home Meds: 00:11 None [Active]; vc1 - PMHx: 00:11 Hypercholesterolemia; Myocardial infarction; stroke; vc1 - PSHx: 00:11 cardiac stent; vc1 - Immunization history:: Client reports receiving the 2nd dose of the Covid vaccine. - Social history:: Smoking status: Patient denies any tobacco usage or history of. - Family history:: not pertinent. Screenin:13 [facility] ED Fall Risk Assessment (Adult) History of falling in the last 3 months, vc1 including since admission No falls in past 3 months (0 pts) Confusion or Disorientation No (0 pts) Intoxicated or Sedated No (0 pts) Impaired Gait No (0 pts) Mobility Assist Device Used No (0 pt) Altered Elimination No (0 pt) Score/Fall Risk Level 0 - 2 = Low Risk Oriented to surroundings, Maintained a safe environment, Educated pt \T\ family on fall prevention, incl call for assistance when getting out of bed. Abuse screen: Denies threats or abuse. Nutritional screening: No deficits noted. Tuberculosis screening: No symptoms or risk factors identified. Assessment: 00:15 Reassessment: See triage assessment. vc1 01:00 Reassessment: No changes from previously documented assessment. Patient and/or family vc1 updated on plan of care and expected duration. Pain level reassessed. Patient is alert, oriented x 3, equal unlabored respirations, skin warm/dry/pink. 02:00 Reassessment: No changes from previously documented assessment. Patient and/or family vc1 updated on plan of care and expected duration. Pain level reassessed. Patient is alert, oriented x 3, equal unlabored respirations, skin warm/dry/pink. 03:00 Reassessment: No changes from previously documented assessment. Patient and/or family vc1 updated on plan of care and expected duration. Pain level reassessed. Patient is alert, oriented x 3, equal unlabored respirations, skin warm/dry/pink. daughter, Serena Hendricks, [phone]. 04:00 Reassessment: No changes from previously documented assessment. Patient and/or family vc1 updated on plan of care and expected duration. Pain level reassessed. Patient is alert, oriented x 3, equal unlabored respirations, skin warm/dry/pink. Vital Signs: 00:09 BP 128 / 68; Pulse 58; Resp 19; Temp 97.8; Pulse Ox 96% ; Weight 81.65 kg; Height 5 ft. vc1 8 in. ; Pain 4/10; 01:00 BP 121 / 72; Pulse 54; Resp 17; Pulse Ox 98% on R/A; vc1 02:00 BP 156 / 69; Pulse 64; Resp 17; Pulse Ox 100% ; vc1 03:00 BP 157 / 71; Pulse 63; Resp 16; Pulse Ox 100% ; vc1 04:00 BP 148 / 72; Pulse 56; Resp 16; Pulse Ox 100% ; vc1 00:09 Body Mass Index 27.37 (81.65 kg, 172.72 cm) vc1 00:09 Pain Scale: Adult vc1 ED Course: 00:07 Patient arrived in ED. as6 00:11 Triage completed. vc1 00:12 Arm band placed on right wrist. vc1 00:13 Maintain EMS IV. Dressing intact. Good blood return noted. Site clean \T\ dry. Gauge \T\ vc 1 site: 18 lac. 00:14 Fernando Todd MD is Attending Physician. sp4 00:15 Patient has correct armband on for positive identification. Bed in low position. Call vc1 light in reach. Client placed on continuous cardiac and pulse oximetry monitoring. NIBP monitoring applied. 00:35 XRAY Chest (1 view) In Process Unspecified. EDMS 01:18 Marlene Horan RN is Primary Nurse. vc1 03:36 Tha Brennan is Hospitalizing Provider. sp4 04:25 No provider procedures requiring assistance completed. Patient admitted, IV remains in vc1 place. Administered Medications: 03:24 Drug: Enoxaparin Sub-Q 80 mg Route: Sub-Q; Site: right lower abdomen; vc1 03:41 Follow up: Response: No adverse reaction vc1 Medication: 00:15 VIS not applicable for this client. vc1 Outcome: 03:37 Decision to Hospitalize by Provider. sp4 04:32 Admitted to Tele accompanied by nurse, via wheelchair, room 403, Report called to anselmo Conte RN 04:32 Condition: good 04:55 Patient left the ED. [facility] Signatures: Dispatcher [employer] EDVinay Mortensen RN RN as6 Marlene Horan RN RN vc1 Fernando Todd MD MD sp4
--- NOTE | 2022-09-29 03:38 | EDPHYS ---
Physician Documentation [facility] Name: Chilo Hendricks Jr Age: 87 yrs Sex: Male : 1935 Arrival Date: 09/28/2022 Time: 23:55 Bed 17 Private MD: ED Physician Fernando Todd HPI: 09/29 00:14 This 87 yrs old Male presents to ER via EMS with complaints of chest pain . sp4 03:16 87-year-old very pleasant male comes in with worsening left-sided to midsternal chest sp4 pains for 1 week at rest. Patient denied any other significant symptoms such as shortness of breath or diaphoresis. Chest pain described as pressure-like located just to the left of the sternum. patient has history of 5 coronary stents, prior CVA, prior [place], and hypercholesterolemia. . 03:22 Patient states he takes 162 mg aspirin daily but is not on any medications. Patient has sp4 moved here 2 years ago [place] a [place]. Patient was given 324 mg p.o. aspirin by EMS prior to arrival. . Historical: - Allergies: 00:11 No Known Allergies; vc1 - Home Meds: 00:11 None [Active]; vc1 - PMHx: 00:11 Hypercholesterolemia; Myocardial infarction; stroke; vc1 - PSHx: 00:11 cardiac stent; vc1 - Immunization history:: Client reports receiving the 2nd dose of the Covid vaccine. - Social history:: Smoking status: Patient denies any tobacco usage or history of. - Family history:: not pertinent. ROS: 03:22 Constitutional: Negative for fever, chills, and weight loss, Eyes: Negative for injury, sp4 pain, redness, and discharge, ENT: Negative for injury, pain, and discharge, Neck: Negative for injury, pain, and swelling, Cardiovascular: Negative for palpitations, and edema, positive for left and midsternal chest pain at rest Respiratory: Negative for shortness of breath, cough, wheezing, and pleuritic chest pain, Abdomen/GI: Negative for abdominal pain, nausea, vomiting, diarrhea, and constipation, Back: Negative for injury and pain, : Negative for injury, bleeding, discharge, and swelling, MS/Extremity: Negative for injury and deformity, Skin: Negative for injury, rash, and discoloration, Neuro: Negative for headache, weakness, numbness, tingling, and seizure, Psych: Negative for depression, anxiety, Allergy/Immunology: Negative for hives, rash, and allergies Endocrine: Negative for neck swelling, polydipsia, polyuria, polyphagia, and weight changes Hematologic/Lymphatic: Negative for swollen nodes, abnormal bleeding, and unusual bruising Exam: 03:22 Constitutional: This is a well developed, well nourished patient who is awake, alert, sp4 and in no acute distress. Head/Face: Normocephalic, atraumatic. Eyes: Pupils equal round and reactive to light, extra-ocular motions intact. Lids and lashes normal. Conjunctiva and sclera are not injected. Cornea within normal limits. Periorbital areas with no swelling, redness, or edema. ENT: Nares patent. No nasal discharge, no septal abnormalities noted. Tympanic membranes are normal and external auditory canals are clear. Oropharynx with no redness, swelling, or masses, exudates, or evidence of obstruction, uvula midline. Mucous membranes moist. Neck: Trachea midline, no thyromegaly or masses palpated, and no cervical lymphadenopathy. Supple, full range of motion without nuchal rigidity, or vertebral point tenderness. Chest/axilla: Normal chest wall appearance and motion. Nontender with no deformity. No lesions are appreciated. Cardiovascular: Regular rate and rhythm with a normal S1 and S2. No gallops, murmurs, or rubs. Normal PMI, no JVD. No pulse deficits. Respiratory: Lungs have equal breath sounds bilaterally, clear to auscultation and percussion. No rales, rhonchi or wheezes noted. No increased work of breathing, no retractions or nasal flaring. Abdomen/GI: Soft, non-tender, with normal bowel sounds. No distension or tympany. No guarding or rebound. No evidence of tenderness throughout. Back: No spinal tenderness. No costovertebral tenderness. Skin: Warm, dry with normal turgor. Normal color with no rashes, no lesions, and no evidence of cellulitis. MS/ Extremity: Pulses equal, no cyanosis. Neurovascular intact. Full, normal range of motion. Neuro: Awake and alert, GCS 15, oriented to person, place, time, and situation. Cranial nerves II-XII grossly intact. Motor strength 5/5 in all extremities. Sensory grossly intact. Psych: Awake, alert, with orientation to person, place and time. Behavior, mood, and affect are within normal limits 03:22 ECG was reviewed by the Attending Physician. EKG time 0001. EKG rate 57 sinus sp4 bradycardia no ST elevation or depression. No ectopy. Otherwise normal Vital Signs: 00:09 BP 128 / 68; Pulse 58; Resp 19; Temp 97.8; Pulse Ox 96% ; Weight 81.65 kg; Height 5 ft. vc1 8 in. ; Pain 4/10; 01:00 BP 121 / 72; Pulse 54; Resp 17; Pulse Ox 98% on R/A; vc1 02:00 BP 156 / 69; Pulse 64; Resp 17; Pulse Ox 100% ; vc1 03:00 BP 157 / 71; Pulse 63; Resp 16; Pulse Ox 100% ; vc1 04:00 BP 148 / 72; Pulse 56; Resp 16; Pulse Ox 100% ; vc1 00:09 Body Mass Index 27.37 (81.65 kg, 172.72 cm) vc1 00:09 Pain Scale: Adult vc1 MDM: 00:26 Patient medically screened. sp4 03:22 Differential Diagnosis Cardiac chest pain, atypical chest pain, angina pectoris, sp4 unstable angina, noncardiac chest pain. Data reviewed: vital signs, nurses notes, EMS record, lab test result(s), cardiac enzymes, CBC, electrolytes, hepatic panel, EKG, radiologic studies, plain films. Consideration of Admission/Observation Patient was admitted/placed on observation. Escalation of care including admission/observation considered. Management of patient was discussed with the following: Hospitalist: Patient discussed with admitting hospitalist. ED course: EKG reveals no signs of acute ischemia. 03:22 ED course: EXAM: XR Chest, 1 View CLINICAL HISTORY: The patient is 87 years old and is sp4 Male; CHEST PAIN TECHNIQUE: Frontal view of the chest. COMPARISON: No relevant prior studies available. FINDINGS: LUNGS: Unremarkable. No consolidation. PLEURAL SPACE: Unremarkable. No pneumothorax. HEART: Unremarkable. No cardiomegaly. MEDIASTINUM: Unremarkable. BONES/JOINTS: Degenerative change of the spine and shoulders is noted. VASCULATURE: Atherosclerosis of the aorta is present. UPPER ABDOMEN: Unremarkable as visualized. IMPRESSION: No acute cardiopulmonary process. . 09/29 00:15 Order name: Basic Metabolic Panel; Complete Time: 03:13 sp4 09/29 00:15 Order name: CBC with Diff; Complete Time: 03:13 sp4 09/29 00:15 Order name: LFT's; Complete Time: 03:13 sp4 09/29 00:15 Order name: Magnesium; Complete Time: 03:13 sp4 09/29 00:15 Order name: NT PRO-BNP; Complete Time: 03:13 sp4 09/29 00:15 Order name: PT-INR; Complete Time: 03:13 sp4 09/29 00:15 Order name: Troponin HS; Complete Time: 03:13 sp4 09/29 00:21 Order name: Lipase; Complete Time: 03:13 sp4 09/29 02:28 Order name: Troponin High Sensitivity; Complete Time: 03:13 vc1 09/29 03:30 Order name: Urinalysis w/ reflexes EDMS 09/29 03:30 Order name: Basic Metabolic Panel EDMS 09/29 03:30 Order name: Basic Metabolic Panel EDMS 09/29 03:30 Order name: Basic Metabolic Panel EDMS 09/29 03:30 Order name: Basic Metabolic Panel EDMS 09/29 03:30 Order name: CBC with Automated Diff EDMS 09/29 03:30 Order name: CBC with Automated Diff EDMS 09/29 03:30 Order name: CBC with Automated Diff EDMS 09/29 03:30 Order name: CBC with Automated Diff EDMS / 03:30 Order name: Magnesium EDMS 09/29 03:30 Order name: Magnesium EDMS 09/29 03:30 Order name: Magnesium EDMS 09/29 03:30 Order name: Magnesium EDMS 09/29 03:30 Order name: Troponin High Sensitivity EDMS 09/29 03:30 Order name: Troponin High Sensitivity EDMS 09/29 03:30 Order name: Troponin High Sensitivity EDMS 09/29 03:30 Order name: Troponin High Sensitivity EDMS / 00:15 Order name: XRAY Chest (1 view) sp4 09/29 00:15 Order name: EKG; Complete Time: 00:16 sp4 09/29 03:30 Order name: CONS Physician Consult EDMS 09/29 03:30 Order name: NPO EDMS 09/29 03:30 Order name: EKG Electrocardiogram EDMS 09/29 03:30 Order name: EKG Electrocardiogram EDMS 09/29 03:30 Order name: EKG Electrocardiogram EDMD 09/29 03:30 Order name: EKG Electrocardiogram EDMD 09/29 00:15 Order name: Cardiac monitoring; Complete Time: 00:16 sp4 09/29 00:15 Order name: EKG - Nurse/Tech; Complete Time: 00:16 sp4 09/29 00:15 Order name: IV Saline Lock; Complete Time: 00:16 sp4 09/29 00:15 Order name: Labs collected and sent; Complete Time: 00:16 sp4 09/29 00:15 Order name: O2 Per Protocol; Complete Time: 00:16 sp4 09/29 00:15 Order name: O2 Sat Monitoring; Complete Time: 00:16 sp4 EC:22 Rate is 57 beats/min. Rhythm is regular, Sinus bradycardia. QRS [place] is Normal. [place] sp4 interval is normal. QRS interval is normal. QT interval is normal. T waves are Normal. No ST changes noted. Clinical impression: No evidence of ischemia. Interpreted by me. Administered Medications: 03:24 Drug: Enoxaparin Sub-Q 80 mg Route: Sub-Q; Site: right lower abdomen; vc1 03:41 Follow up: Response: No adverse reaction vc1 Disposition Summary: 09/29/22 03:37 Hospitalization Ordered Hospitalization Status: Observation sp4 Provider: Tha Brennan sp Location: Telemetry/MedSur (observation) sp4 Condition: Stable sp4 Problem: new sp4 Symptoms: have improved sp4 Bed/Room Type: Standard 4 Room Assignment: 403(09/29/22 04:22) mw Diagnosis - Unstable angina sp4 Discharge Instructions: - Discharge Summary Sheet vc1 Forms: - SBAR form vc1 - Medication Reconciliation Form sp4 Signatures: Dispatcher [employer] EDPat Hernandez RN RN mw Marlene Horan RN RN vc1 Fernando Todd MD MD sp4 Corrections: (The following items were deleted from the chart) 04:22 03:37 sp4 mw
--- NOTE | 2022-09-29 03:58 | P.HP ---
Certification for Inpatient With expected LOS: <2 Midnights Practitioner: I am a practitioner with admitting privileges, knowledge of patient current condition, hospital course, and medical plan of care. Services: Services provided to patient in accordance with Admission requirements found in Title 42 Section 412.3 of the Code of Federal Regulations Patient History Date of Service: 09/29/22 Reason for admission: chest pain History of Present Illness: 87 yrs old Male with past medical history of HLD, CVA, PCI x5 presents to ER via EMS complaining of chest pain. He reports left-sided to midsternal chest pain that started 1 week ago described as chest pressure that is intermittent, sometimes occurs at rest. He denies nausea, vomiting, diaphoresis. He reports of his son in August. He reports he does not take any medications. He has not seen a lens assistant in 10 years. He reported taking 2 asprin. He denies recent illness, no reported fever, cough, shortness of breath, leg swelling. - Past Medical/Surgical History Diabetic: No -: HLD -: CVA -: PCI x 5 - Social History Smoking Status: Never smoker Alcohol use: No Review of Systems General: As per HPI Physical Examination - Physical Exam General: In no apparent distress, Oriented x3 HEENT: Atraumatic, Normocephalic, PERRLA Neck: Supple, 2+ carotid pulse no bruit Respiratory: Clear to auscultation bilaterally, Normal air movement Cardiovascular: Regular rate/rhythm, Normal S1 S2 Capillary refill: <2 Seconds Gastrointestinal: Normal bowel sounds, Non-distended Musculoskeletal: No clubbing, No swelling Neurological: Normal gait, Normal affect - Studies Laboratory Data (last 24 hrs) 09/29/22 00:20: Lipase 29 09/29/22 00:20: PT 11.5, INR 1.05 09/29/22 00:20: WBC 6.20, Hgb 12.4 L, Hct 36.7 L, Plt Count 221 09/29/22 00:20: Sodium 136, Potassium 3.9, BUN 13, Creatinine 0.81, Glucose 104, Magnesium 2.2, Total Bilirubin 0.3, AST 19, ALT 23, Alkaline Phosphatase 96 Assessment and Plan - Plan Assessment/Plan chest pain rule out DE HLD uncontrolled CAD w hx PCI x 5 HX CVA Assessment/Plan admit to med surg, tele chest pain rule out DE, PRN nitro Sl, Card consult, HLD uncontrolled-start anticholesterol medication CAD w hx PCI x 5 Loveonx 80 1mg/kg q 12 HX CVA- lipid panel, daily asa Diet NPO Full code DVT Lovenox - Advance Directives Does patient have a Living Will: No Does patient have a Durable POA for Healthcare: No
[2022-09-29] MEDS ORDERED: ATORVASTATIN 20 MG TAB PO SCH (04:09)
[2022-09-29] MEDS ORDERED: NITROGLYCERIN 0.4 MG/TAB SL PRN (04:10)
[2022-09-29 05:35] VITALS: BMI 27.3
[2022-09-29] MEDS ORDERED: POTASSIUM CL SA 10 MEQ TAB PO ONE (09:00)
[2022-09-29] MEDS: ASPIRIN 81 MG CHEWABLE TABLET PO SCH ×2 (09:00→09:56)
[2022-09-29] MEDS: ENOXAPARIN 80 MG/0.8 ML SQ SCH ×2 (09:57→20:14)
--- NOTE | 2022-09-29 11:17 | EKG ---
Test Date: 2022-09-29 Test Time: 00:01:41 Electric Vehicle Electrician: SABI MEASUREMENT RESULTS: Intervals: Rate: 57 PA: 152 QRSD: 92 QT: 434 QTc: 422 [place]: P: 36 PA: 152 QRS: 2 T: 23 INTERPRETIVE STATEMENTS: Sinus bradycardia Low voltage QRS Cannot rule out Anterior infarct, age undetermined Abnormal ECG Compared to ECG 07/19/2021 10:31:37 Low QRS voltage now present Myocardial infarct finding now present Sinus rhythm no longer present ST (T wave) deviation no longer present Possible ischemia no longer present Electronically Signed On 09-29-22 11:16:17 CDT by Edis Garcia
[2022-09-29 11:20] LABS: Specific Gravity 1.009 (1.005-1.030); Urine Bilirubin NEGATIVE (Negative); Urine Blood Negative (Negative); Urine Clarity Clear (Clear); Urine Color Colorless (Yellow); Urine Glucose NEGATIVE (Negative); Urine Protein NEGATIVE (Negative); Urine Urobilinogen Normal (Normal); Urine pH 7.5 (5.0-7.0)
--- NOTE | 2022-09-29 13:50 | P.PN ---
Date of Service: 09/29/22 Patient seen and examined. He denies any chest pain at the moment. He states that his chest pain resolved before arrival to the ED. Troponin trended negative. LDL was significantly elevated. History of noncompliance with follow-ups. Plan: Cardiology Dr. Garcia's input appreciated. Dr. Garcia recommended nuclear stress test in a.m. High-dose Lipitor Aspirin Continue full dose Lovenox given high risk for CAD/Angina. He is currently not on beta-latonya due to bradycardia and soft blood pressure.
--- NOTE | 2022-09-29 14:21 | CON ---
Date of Consultation: 09/29/2022 Reason For Consultation: Chest pain. History Of Present Illness: An 87-year-old male with history of coronary artery disease, status post multiple stents in the past, 5 stents , dyslipidemia, CVA, presented with chest pain, left -sided, started about a week ago, intermittent, not specifically related to exertion, lasts for few m inutes and goes away and getting more frequent. Denies having any active chest pain at present time. Past Medical History: As outlined above in the HPI. Medications: Refer to reconciliation sheet for detailed list. Allergies: NO KNOWN DRUG ALLERGIES. Family History: No premature coronary artery disease or cancer. Social History: He does not smoke or drink. Does not use any drugs. Review of Systems: All systems reviewed and they were negative except what mentioned in HPI. Physical Examination: Vital Signs: Reviewed. Head and Neck: Pupils are equal, reactive to light. Intact eye movements. No JVD. No cervical lym phadenopathy. Neck is supple. Thyroid is not enlarged. Lungs: Clear to auscultation bilaterally. No rhonchi, wheezing, or crackles. No accessory muscle u se. Heart: Regular rate and rhythm. No extra sounds. Abdomen: Soft, nontender. Bowel sounds positive. No organomegaly. No masses or hernia. No rigidi ty or rebound. Extremities: No edema, clubbing, or cyanosis. Intact pulses. Skin: No rash. Neurologic: Alert, awake, oriented x3. No acute focal deficits appreciated. Investigations: LDL cholesterol is 190. Troponins x2 were negative and his BUN is 13, creatinine 0. 81, and hemoglobin 12.4. Assessment And Recommendations: 1.Chest pain with history of coronary artery disease. This could be unstable angina. Recommend con tinue baby aspirin and obtain a Lexiscan nuclear stress test tomorrow. 2.Dyslipidemia. Continue Lipitor, but I will recommend to increase it to 80 mg at bedtime. 3.Coronary artery disease with chest pain, likely unstable angina. Stress test as above and plan ac cordingly. SR/MODL Voice ID: [id number] Report ID: [id number]
--- NOTE | 2022-09-29 20:42 | RAD REPORT ---
EXAM DESCRIPTION: RAD - Chest Single View - 09/29/2022 12:34 am CLINICAL HISTORY: The patient is 87 years old and is Male; CHEST PAIN TECHNIQUE: Frontal view of the chest. COMPARISON: No relevant prior studies available. FINDINGS: LUNGS: Unremarkable. No consolidation. PLEURAL SPACE: Unremarkable. No pneumothorax. HEART: Unremarkable. No cardiomegaly. MEDIASTINUM: Unremarkable. BONES/JOINTS: Degenerative change of the spine and shoulders is noted. VASCULATURE: Atherosclerosis of the aorta is present. UPPER ABDOMEN: Unremarkable as visualized. IMPRESSION: No acute cardiopulmonary process. Electronically signed by: Hannah Jay MD 09/29/2022 12:51 AM CDT Due to temporary technical issues with the PACS/Fluency reporting system, reports are being signed by the in house radiologists without review as a courtesy to insure prompt reporting. The interpreting radiologist is fully responsible for the content of the report.
[2022-09-29] MEDS ORDERED: ATORVASTATIN 40 MG TAB PO SCH (21:00)
[2022-09-30 06:30] LABS: Absolute Lymphocytes (CBC) 1.7 K/uL (0.7-4.9); Lymphocytes % 29.5 % (15.3-44.8); MCV 88.3 fL (80-100); MPV 7.6 fL (7.6-11.3)
[2022-09-30 06:51] LABS: Magnesium 2.3 mg/dL (1.6-2.4)
--- NOTE | 2022-09-30 08:50 | P.DS ---
Admission Date: 09/29/22 Discharge Date: 09/30/22 Discharge Condition: FAIR Reason for Admission: chest pain - Problems (1) Coronary artery disease Current Visit: Yes Status: Acute (2) Essential hypertension Current Visit: Yes Status: Acute (3) Chest pain Current Visit: Yes Status: Acute Brief History of Present Illness: 87 yrs old Male with past medical history of HLD, CVA, PCI x5 presented to ER via EMS complaining of chest pain. He reported left-sided to midsternal chest pain that started 1 week ago described as chest pressure that is intermittent, sometimes occurs at rest. He denies nausea, vomiting, diaphoresis. He reports he does not take any medications. He has not seen a orthodontic laboratory technician in 10 years. He reported taking 2 aspirin. He denies recent illness, no reported fever, cough, shortness of breath, leg swelling. Chest x-ray unremarkable, initial troponin negative, EKG did not show any acute ischemic changes. Patient with significant history of coronary artery disease. He was hospitalized for further evaluation. Hospital Course: Troponin trended negative. He was treated with full dose Lovenox given his significant coronary artery disease risk factors. He was also placed on aspirin and Lipitor. Patient noted to be bradycardic and no beta-latonya was prescribed. Lipid profile showed elevated LDL. Patient was seen and evaluated by cardiology Dr. Garcia who recommended nuclear stress test. According to report the nuclear machine is down today. Dr. Garcia recommend follow-up with him in the office for further evaluation and management. Patient has been chest pain-free since admission. Vitals are stable for discharge. Vital Signs/Physical Exam: Temp Pulse Resp BP Pulse Ox 97.2 F 63 18 147/70 H 91 09/30/22 04:00 09/30/22 04:00 09/30/22 04:00 09/30/22 04:00 09/30/22 04:00 General: Alert, In no apparent distress, Oriented x3 HEENT: Mucous membr. moist/pink Neck: Supple, JVD not distended Respiratory: Clear to auscultation bilaterally, Normal air movement Cardiovascular: No edema, Regular rate/rhythm, Normal S1 S2 Gastrointestinal: Normal bowel sounds, Soft and benign, Non-distended, No tenderness Musculoskeletal: No swelling, No tenderness Integumentary: No rashes, No cyanosis Neurological: Normal speech, Normal strength at 5/5 x4 extr, Cranial nerves 3-12 intact Laboratory Data at Discharge: WBC 5.80 thou/uL (4.3-10.9) 09/30/22 05:51 Hgb 12.6 g/dL (13.6-17.9) L 09/30/22 05:51 Hct 37.0 % (39.6-49.0) L 09/30/22 05:51 Plt Count 220 thou/uL (152-406) 09/30/22 05:51 PT 11.5 SECONDS (9.5-12.5) 09/29/22 00:20 INR 1.05 09/29/22 00:20 Sodium 137 mEq/L (136-145) 09/30/22 05:51 Potassium 4.0 mEq/L (3.5-5.1) 09/30/22 05:51 BUN 13 mg/dL (7-18) 09/30/22 05:51 Creatinine 0.79 mg/dL (0.70-1.30) 09/30/22 05:51 Glucose 100 mg/dL (74-106) 09/30/22 05:51 Magnesium 2.3 mg/dL (1.6-2.4) 09/30/22 05:51 Total Bilirubin 0.3 mg/dL (0.2-1.0) 09/29/22 00:20 AST 19 U/L (15-37) 09/29/22 00:20 ALT 23 U/L (16-61) 09/29/22 00:20 Alkaline Phosphatase 96 U/L (45-117) 09/29/22 00:20 Triglycerides 214 mg/dL (<150) H 09/29/22 07:41 Cholesterol 271 mg/dL (<200) H 09/29/22 07:41 HDL Cholesterol 38 mg/dL (40-60) L 09/29/22 07:41 Cholesterol/HDL Ratio 7.13 09/29/22 07:41 Lipase 29 U/L (13-75) 09/29/22 00:20 Home Medications: Aspirin Chewable [Aspirin Chewable*] 81 mg PO DAILY #30 tab.chew 09/30/22 Atorvastatin Calcium [Lipitor] 40 mg PO BEDTIME #30 tab 09/30/22 New Medications: Aspirin Chewable [Aspirin Chewable*] 81 mg PO DAILY #30 tab.chew Atorvastatin Calcium [Lipitor] 40 mg PO BEDTIME #30 tab Diet: AHA Activity: Ad sharon Followup: Edis Garcia MD [ACTIVE - CAN ADMIT] - (follow up on 10/02/2022 at 9 pm in the office) Time spent managing pt's care (in minutes): 25
[2022-09-30] MEDS: ENOXAPARIN 80 MG/0.8 ML SQ SCH (09:23)
[2022-09-30] MEDS: ASPIRIN 81 MG CHEWABLE TABLET PO SCH (09:23)
[2022-09-30 12:18] VITALS: O2SAT 96
[2022-09-30 12:23] VITALS: BP 165/79; TEMP 97.8
== END 2022-09-30 12:30 | disposition home or self-care (01) ==
LOC: ER 23:55 → ERHOLD 09-29 03:22 → INTOOBSV 09-29 03:22 → 4TH 09-29 04:31
PROVIDERS: ADMIT Internal Medicine; ATTEND Internal Medicine
DX: I25.10 Atherosclerotic heart disease of native coronary artery without angina pectoris (principal); E78.5 Hyperlipidemia, unspecified; I10 Essential (primary) hypertension; Z86.73 Personal history of transient ischemic attack (TIA), and cerebral infarction without residual deficits
CPT/HCPCS: 36415; 71045; 80048; 80061; 80076; 81003; 83690; 83735; 83880; 84484; 85025; 85610; 93005; 94760; 96372; 99285; G0378

== ENCOUNTER 2022-11-01 08:37 | Emergency (ER) | payer MEDICARE ==
--- OUTSIDE RECORDS SUMMARY | 2022-11-01 08:40 | XMS REPORT | Clinical Summary ---
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
--- OUTSIDE RECORDS SUMMARY | 2022-11-01 08:41 | XMS REPORT | Continuity of Care Document ---
:1935 Author Organization [facility] t Address [address] [facility] [address] [place] [address] Care Team Providers Name Role Phone Tiago Persaud MD Primary Care Physician Yolanda Li Attending Clinician Unavailable SYSTEM, PROVIDER NOT IN Attending Clinician Unavailable GAYLORD_S Attending Clinician Unavailable Fulminar_S Attending Clinician Unavailable CURTIS LEYVA Attending Clinician Unavailable ZAYRA RIVAS Attending Clinician Unavailable TIAGO PERSAUD Attending Clinician Unavailable MARION LEDESMA Attending Clinician Unavailable GAYLORD_S Admitting Clinician Unavailable Fulminar_S Admitting Clinician Unavailable ZAYRA RIVAS Admitting Clinician Unavailable Payers Payer Name Policy Type Policy Number Effective Date Expiration Date S haseeb [facility] [id number] 2021 (MEDICARE 00:00:00 REPLACEMENT HMO) FORMERLY [facility] MGD [id number] 2021 [facility] 00:00:00 HUMANA CHOICE [id number] 2021 MEDICARE PPO 00:00:00 Problems Condition Condition Condition Status Onset Resolution Last Treating Co mments Source Name Details Category Date Date Treatment Clinician Date HTN HTN Disease Recurre [facility] (hypertens (hypertens nce 3-27 Margy kes ion) ion) 00:00: Medical 00 Center CAD CAD Disease Recurre [facility] (coronary (coronary nce 3-27 Luke s artery artery 00:00: Medical disease) disease) 00 Center Chest pain Chest pain Disease Active [facility] Medical 00 [place] Left arm Left arm Disease Active [facility] numb[facility] 06[facility]24 [facility] 00 Center Stroke Stroke Disease Recurre [facility] 00:[facility]: Medical 00 [place] [id number] Coronary Problem 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 hearing [facility] loss type Medical [place] [id number] Slow Problem Common transit Spirit constipati - [facility] on [facility] Allergies, Adverse Reactions, Alerts Allergy Allergy Status Severity Reaction(s) Onset Inactive Treating Comm ents Source Name Type Date Date Clinician NO KNOWN Allergy Active [facility] Family History Family Member Diagnosis Comments Start Date Stop Date Source Natural son Brain cancer [facility] Social History Social Habit Start Date Stop Date Quantity Comments Source History of Common Spirit - Tobacco Use [facility] History [facility] University o f Alcohol Std Olivia mcdonald [facility] History [facility] University o f Alcohol Binge [place] MD Lora quintanilla [facility] Alcohol intake 2021-03-27 2021-03-27 Lifetime University of 00:00:00 00:00:00 non-drinker Olivia mcdonald (finding) [facility] History SDOH 2021-03-27 2021-03-27 1 University o f Alcohol Frequency 00:00:00 00:00:00 [facility] Tobacco use and 2021-03-27 2021-03-27 Smokeless tobacco Un iversity of exposure 00:00:00 00:00:00 non-user [place] MD [facility] Sex Assigned At [birth year] EVIN Sepulveda kes 00:00:00 00:00:00 Medical Center Smoking Status Start Date Stop Date Source Never Smoker Common [facility] Medications Ordered Filled Start Stop Current Ordering Indication Dosage Frequency Signature Comments Components Source Medication Medication Date Date Medication? Clinician (SIG) Name Name Cephalexin Cephalexin 2022- No 1{capsu BID Cephalexin 500 MG 500 MG 09-05 le} 500 MG 00:00: 00:00 00 :00 aspirin 325 2021-0 Yes acute 650mg QD Take [address] MG tablet 3-28 myocardial mg by Nicole es 14:53: infarction mouth Medica l 44 daily. Center aspirin 325 0 Yes acute 650mg QD Take [address] MG tablet 3-28 myocardial mg by Nicole es 14:53: infarction mouth Medica l 44 daily. Center atorvastati 2022- No 80mg QD Take [address] n (LIPITOR) 3-28 -28 tablet (80 L ukes 80 MG 00:00: 23:59 mg total) Medica l tablet 00 :00 by mouth Center nightly. atorvastati 2022- No 80mg QD Take [address] [facility] (LIPITOR) 3-28 03-28 tablet (80 L ukes 80 MG 00:00: 23:59 mg total) Medica l tablet 00 :00 by mouth Center nightly. Solumedrol Solumedrol No 80mg C ommon 40mg/1ml 40mg/1ml 3 Spirit 00:00: - [facility] Cetirizine Cetirizine 2021-0 No 1{table BID Cetirizine HCl 5 MG HCl 5 MG 3-23 t} HCl 5 MG 00:00: 00 Solumedrol Solumedrol 2021-0 No 80mg C ommon 40mg/1ml 40mg/1ml 323 Spirit 00:00: - [facility]I 00 [facility] Cetirizine Cetirizine 2021-0 No 1{table BID Cetirizine HCl 5 MG HCl 5 MG 3-23 t} HCl 5 MG 00:00: 00 Solumedrol Solumedrol 2021-0 No 80mg C ommon 40mg/1ml 40mg/1ml 3-23 Spirit 00:00: - [facility]I 00 [facility] Cetirizine Cetirizine 2-0 No 1{table BID Cetirizine HCl 5 MG HCl 5 MG 3-23 t} HCl 5 MG 00:00: 00 Solumedrol Solumedrol 2-0 No 80mg C ommon 40mg/1ml 40mg/1ml 3-23 Spirit 00:00: - [facility]I 00 [facility] Cetirizine Cetirizine 2-0 No 1{table BID Cetirizine HCl 5 MG HCl 5 MG 3-23 t} HCl 5 MG 00:00: 00 Solumedrol Solumedrol 2-0 No 80mg C ommon 40mg/1ml 40mg/1ml 3- Spirit 00:00: - CHI 00 [facility] Cetirizine Cetirizine 2-0 No 1{table BID Cetirizine HCl 5 MG HCl 5 MG 3-23 t} HCl 5 MG 00:00: 00 Solumedrol Solumedrol 2-0 No 80mg C ommon 40mg/1ml 40mg/1ml 3-23 Spirit 00:00: - [facility]I 00 [facility] Cetirizine Cetirizine 2-0 No 1{table BID Cetirizine HCl 5 MG HCl 5 MG 3-23 t} HCl 5 MG 00:00: 00 Clobetasol Clobetasol 2-0 2- No 1{appli BID Clobetasol Propionate Propionate 3-23 04-20 cation} Propionate 0.05 % 0.05 % 00:00: 00:00 0.05 % 00 :00 Clobetasol Clobetasol 2-0 2022- No 1{appli BID Clobetasol Propionate Propionate 3-23 04-20 cation} Propionate 0.05 % 0.05 % 00:00: 00:00 0.05 % 00 :00 Clobetasol Clobetasol 2-0 2- No 1{appli BID Clobetasol Propionate Propionate 3-23 04-20 cation} Propionate 0.05 % 0.05 % 00:00: 00:00 0.05 % 00 :00 Benadryl Benadryl 2021- No 1{table Benadryl Allergy 25 Allergy 25 06-20 t_at_be Allergy 25 MG MG 00:00: 00:00 dtime_a MG 00 :00 s_neede d} Benadryl Benadryl 2- No 1{table Benadryl Allergy 25 Allergy 25 06-20 t_at_be Allergy 25 MG MG 00:00: 00:00 dtime_a MG 00 :00 s_neede d} Benadryl Benadryl 2- No 1{table Benadryl Allergy 25 Allergy 25 06-20 t_at_be Allergy 25 MG MG 00:00: 00:00 dtime_a MG 00 :00 s_neede d} Solumedrol Solumedrol No C ommon 125mg/2ml 125mg/2ml 2-11 Spiri t 00:00: - CHI 00 [facility] Solumedrol Solumedrol 2021-0 No C ommon 125mg/2ml 125mg/2ml 2-11 Spiri t 00:00: - CHI 00 [facility] Solumedrol Solumedrol 2021-0 No C ommon 125mg/2ml 125mg/2ml 2-11 Spiri t 00:00: - CHI 00 [facility] Triamcinolo Triamcinolo 0 No 1{appli BID Triamcinol ne ne 2-11 cation_ one Acetonide Acetonide 00:00: to_affe Acetonide 0.1 % 0.1 % 00 cted_ar 0.1 % ea} Triamcinolo Triamcinolo 2021-0 No 1{appli BID Triamcinol ne ne 2-11 cation_ one Acetonide Acetonide 00:00: to_affe Acetonide 0.1 % 0.1 % 00 cted_ar 0.1 % ea} Solumedrol Solumedrol 0 No C ommon 125mg/2ml 125mg/2ml 2-11 Spiri t 00:00: - CHI 00 [facility] Triamcinolo Triamcinolo 2022-0 No 1{appli BID Triamcinol ne ne 2-11 cation_ one Acetonide Acetonide 00:00: to_affe Acetonide 0.1 % 0.1 % 00 cted_ar 0.1 % ea} Solumedrol Solumedrol No C ommon 125mg/2ml 125mg/2ml 2-11 Spiri t 00:00: - CHI 00 [facility] Tribayronolo Triamcinolo No 1{appli BID Triamcinol ne ne 2-11 cation_ one Acetonide Acetonide 00:00: to_affe Acetonide 0.1 % 0.1 % 00 cted_ar 0.1 % ea} Solumedrol Solumedrol No C ommon 125mg/2ml 125mg/2ml 2-11 Spiri t 00:00: - CHI 00 [facility] Clopidogrel Clopidogrel No 1{table QD Clopidogre Bisulfate [...] Comments Source height 2022-03-20 16:20:00 66 [in_i] Common S [facility] weight 2022-03-20 16:20:00 189.2 [lb_av] Common [facility] temperature 2022-03-20 16:20:00 97.5 [degF] Common S pirit [facility] bmi 2022-03-20 16:20:00 30.53 kg/m2 Common [facility] oximetry 2022-03-20 16:20:00 96 % Common S [facility] respiratory rate 2022-03-20 16:20:00 16 /min Comm on [facility] blood pressure 2022-03-20 16:20:00 136 mm[Hg] Common [facility] - systolic [facility] blood pressure 2022-03-20 16:20:00 73 mm[Hg] Common [facility] - diastolic [facility] height 2021-09-05 15:20:00 66 [in_i] Common [facility] weight 2021-09-05 15:20:00 183 [lb_av] Common S pirit [facility] temperature 2021-09-05 15:20:00 98.2 [degF] [facility] 2021-09-05 15:20:00 29.53 kg/m2 [facility] oximetry 2021-09-05 15:20:00 96 % Common [facility] respiratory rate 2021-09-05 15:20:00 16 /min Comm on [facility] blood pressure 2021-09-05 15:20:00 128 mm[Hg] Common [facility] - systolic [facility] blood pressure 2021-09-05 15:20:00 66 mm[Hg] Common [facility] - diastolic [facility] height 2021-08-07 08:00:00 66 [in_i] [facility] weight 2021-08-07 08:00:00 183.6 [lb_av] Common [facility] temperature 2021-08-07 08:00:00 97.9 [degF] Common S pirit [facility] bmi 2021-08-07 08:00:00 29.63 kg/m2 Common S [facility] oximetry 2021-08-07 08:00:00 95 % Common S [facility] respiratory rate 2021-08-07 08:00:00 16 /min Comm on [facility] blood pressure 2021-08-07 08:00:00 128 mm[Hg] Common [facility] - systolic [facility] blood pressure 2021-08-07 08:00:00 66 mm[Hg] Common [facility] - diastolic [facility] height 2021-06-27 11:00:00 66 [in_i] Common [facility] weight 2021-06-27 11:00:00 184.4 [lb_av] [facility] temperature 2021-06-27 11:00:00 97.1 [degF] Common S [facility] bmi 2021-06-27 11:00:00 29.76 kg/m2 [facility] S [facility] oximetry 2021-06-27 11:00:00 96 % Common [facility] respiratory rate 2021-06-27 11:00:00 16 /min Comm on [facility] blood pressure 2021-06-27 11:00:00 138 mm[Hg] Common [facility] - systolic [facility] blood pressure 2021-06-27 11:00:00 72 mm[Hg] Common [facility] - diastolic [facility] height 2021-06-27 11:00:00 66 [in_i] Common S [facility] weight 2021-06-27 11:00:00 184.4 [lb_av] [facility] temperature 2021-06-27 11:00:00 97.1 [degF] Common S [facility] bmi 2021-06-27 11:00:00 29.76 kg/m2 Common [facility] oximetry 2021-06-27 11:00:00 96 % Common [facility] respiratory rate 2021-06-27 11:00:00 16 /min Comm on [facility] blood pressure 2021-06-27 11:00:00 138 mm[Hg] Common [facility] - systolic [facility] blood pressure 2021-06-27 11:00:00 72 mm[Hg] Common [facility] - diastolic [facility] HEIGHT 2021-06-23 20:00:00 170.2 cm WEIGHT 2021-06-23 20:00:00 78.2 kg HEIGHT 2021-06-23 20:00:00 170.2 cm WEIGHT 2021-06-23 20:00:00 78.2 kg height 2021-06-20 11:20:00 66 [in_i] [facility] weight 2021-06-20 11:20:00 185.6 [lb_av] [facility] temperature 2021-06-20 11:20:00 97.8 [degF] [facility] bmi 2021-06-20 11:20:00 29.95 kg/m2 [facility] oximetry 2021-06-20 11:20:00 98 % [facility] respiratory rate 2021-06-20 11:20:00 16 /min Comm on [facility] blood pressure 2021-06-20 11:20:00 134 mm[Hg] Common [facility] - systolic [facility] blood pressure 2021-06-20 11:20:00 76 mm[Hg] Common [facility] - diastolic [facility] height 2021-05-11 10:40:00 66 [in_i] Common [facility] weight 2021-05-11 10:40:00 184.4 [lb_av] [facility] temperature 2021-05-11 10:40:00 98.1 [degF] Common [facility] bmi 2021-05-11 10:40:00 29.76 kg/m2 Common S [facility] oximetry 2021-05-11 10:40:00 97 % Common S pirit - [facility] respiratory rate 2021-05-11 10:40:00 16 /min Comm on Spirit - [facility] blood pressure 2021-05-11 10:40:00 132 mm[Hg] Common Spirit - systolic [facility] blood pressure 2021-05-11 10:40:00 60 mm[Hg] Common [facility] - diastolic [facility] Procedures This patient has no known procedures. Plan of Care Planned Activity Planned Date Details Comments Source Future Scheduled 2022-11-[address] [facility] Test 00:00:00 (Season Ended) [code Medical Center = Influenza Vaccine (Season Ended)] Future Scheduled 2022-11-[address] [facility] Test 00:00:00 (#1) [code = Medical Center Influenza Vaccine (#1)] Future Scheduled 2022-10-15 COVID-19 Vaccination [facility] Test 08:59:36 (#1) [code = COVID-19 And patricia Cancer Vaccination (#1)] Center Future Scheduled 2022-06-[address] [facility] Test 00:00:00 WELLNESS (YEAR 2 or Medical Center FIRST YEAR if no IPPE) [code = MEDICARE ANNUAL WELLNESS (YEAR 2 or FIRST YEAR if no IPPE)] Future Scheduled 2022-06-[address] [...] RISK Medical C enter SCREENING] Future Scheduled 2022-03-[address] [facility] Test 00:00:00 (12+) [code = Medical Center DEPRESSION SCREENING (12+)] Future Scheduled 2022-03-31 FALLS RISK SCREENING [facility] Test 00:00:00 [code = FALLS RISK Medical C enter SCREENING] Future Scheduled 2022-03-28 COVID-19 Vaccination Uni versity [facility] Test 13:24:43 (#1) [code = COVID-19 MD And erson Cancer Vaccination (#1)] Center Future Scheduled 1985 SHINGLES VACCINES ([address] [facility] Test 00:00:00 of 2) [code = Medical Center SHINGLES VACCINES (1 of 2)] Future Scheduled 1985 SHINGLES VACCINES ([address] [facility] Test 00:00:00 of 2) [code = Medical Center SHINGLES VACCINES (1 of 2)] Future Scheduled 1954 DTAP/TDAP/TD VACCINES [facility] Test 00:00:00 (1 - Tdap) [code = Medical C enter DTAP/TDAP/TD VACCINES (1 - Tdap)] Future Scheduled 1954 DTAP/TDAP/TD VACCINES [facility] Test 00:00:00 (1 - Tdap) [code = Medical C enter DTAP/TDAP/TD VACCINES (1 - Tdap)] Future Scheduled [address] [facility] Test 00:00:00 Counseling and Medical Cente r Screening (12+) [code = Tobacco Cessation Counseling and Screening (12+)] Future Scheduled [address] [facility] Test 00:00:00 Counseling and Medical Cente r Screening (12+) [code = Tobacco Cessation Counseling and Screening (12+)] Future Scheduled 1941 PNEUMOCOCCAL 65+ YRS [facility] Test 00:00:00 (1 - PCV) [code = Medical Ce nter PNEUMOCOCCAL 65+ YRS (1 - PCV)] Future Scheduled 1941 PNEUMOCOCCAL 65+ YRS [facility] Test 00:00:00 (1 - PCV) [code = Medical Ce nter PNEUMOCOCCAL 65+ YRS (1 - PCV)] Future Scheduled 1935 COVID-19 VACCINE (#1) [facility] Test 00:00:00 [code = COVID-[address] VACCINE (#1)] Future Scheduled 1935 COVID-19 VACCINE (#1) [facility] Test 00:00:00 [code = COVID-[address] VACCINE (#1)] Encounters Start End Encounter Admission Attending Care Care Encounter Source Date/Time Date/Time Type Type Clinicians Facility Department ID 2022-10-03 Outpatient Li, STLAMARLC STLC [id number] Common 08:29:00 Yolanda 05573 [facility] 2022-09-03 Outpatient Li, STLMLC STLC [id number] Common 14:27:01 Yolanda [id number] [facility] 2022-07-01 Outpatient Li, STLMLC STLC [id number] Common 07:56:00 Yolanda 99305 [facility] 2022-03-19 Outpatient Li, STLMLC STLC [id number] Common 13:32:03 Yolanda [facility] 2022-03-18 Outpatient Li, STLMLC STLC [id number] Common 15:21:01 Yolanda [facility] 2021-09-24 Outpatient Li, STLMLC STLC [id number] Common 14:16:03 Yolanda [facility] 2021-08-06 Outpatient Li, STLMLC STLC [id number] Common 16:54:02 Yolanda [facility] 2021-06-25 Outpatient Li, STLMLC STLC [id number] Common 14:10:03 Yolanda [facility] 2021-05-11 Outpatient Li, STLMLC STLC [id number] Common 10:00:03 Yolanda [facility] 2021-05-03 Outpatient SYSTEM, MDA MDA [id number] 11:28:47 PROVIDER Cam o n 2022-10-23 2022-10-23 Outpatient GAYLORD_S DMG DMG [id number] 00:00:00 00:00:00 [id number] Medica l Group 2022-10-23 2022-10-23 Outpatient GAYLORD_S DMG DMG [id number] 00:00:00 00:00:00 [id number] Medica l Group 2022-05-292022-05-29 Outpatient Fulminar_S DMG [facility] [id number] Devoted 00:00:00 00:00:00 [id number] Medica l Group 2022-05-29 2022-05-29 Outpatient Fulminar_S DMG [facility] [id number] Devoted 00:00:00 00:00:00 [id number] Medica l Group 2022-03-20 2022-03-20 OFFICE STLMLC STLMLC [id number] Co mmon 00:00:00 00:00:00 VISIT Spirit ESTAB PT - CHI LEVEL 4 [facility] 2022-02-26 2022-02-26 Outpatient Fulminar_S DMG [facility] [id number] Devoted 00:00:00 00:00:00 [id number] Medica l Group 2021-10-12 2021-10-12 Outpatient DMG [facility] [id number] Devoted 03:03:00 03:03:00 [id number] Medica l Group 2021-09-05 2021-09-05 OFFICE STLMLC STLMLC [id number] Co mmon 00:00:00 00:00:00 VISIT Spirit ESTAB PT - CHI LEVEL 2 [facility] 2021-08-07 2021-08-07 OFFICE STLMLC STLMLC [id number] Co mmon 00:00:00 00:00:00 VISIT EST Spir it PT LEVEL 3 - CHI [facility] 2021-06-27 2021-06-27 (MCR WELL) STLMLC STLMLC [id number] Common 00:00:00 00:00:00 Medicare Spiri t Wellness - CHI [facility] 2021-06-27 2021-06-27 OFFICE STLMLC STLMLC [id number] Co mmon 00:00:00 00:00:00 VISIT EST Spir it PT LEVEL 3 - CHI [facility] 2021-06-23 2021-06-25 Inpatient ER GIOVANA LEYVA Neuro ICU [id number] SLE 19:26:00 13:47:00 CURTIS 2021-06-20 2021-06-20 OFFICE STLMLC STLMLC [id number] Co mmon 00:00:00 00:00:00 VISIT EST Spir it PT LEVEL 3 - CHI [facility] 2021-05-16 2021-05-16 Outpatient DMG DMG [id number] Devoted 09:00:00 09:00:00 [id number] Medica l Group 2021-05-11 2021-05-11 OFFICE STLMLC STLMLC [id number] Co mmon 00:00:00 00:00:00 VISIT NEW Spir it PT LEVEL 3 - CHI [facility] 2021-03-27 2021-03-27 Outpatient KAELYN PERSAUD JORGE LUIS MDA [id number] 09:24:05 10:23:37 TIAGO arzola 2021-03-27 2021-03-27 Outpatient EL JORGE LUIS JORGE LUIS [id number] 08:52:08 08:52:14 Cam jamie arzola 2021-03-07 2021-03-07 Emergency SNEHA LEDESMA MDA Emergency [id number] 10:11:00 12:25:00 BESOLI arzola Results Test Description Test Time Test [...] NOT 1092) ACCURATE CRE ATININE CLEARANCE IN [place] EDICTING GLOMERULAR FILT RATION RATE. ESTIMATED GFR IS NOT APPLICABLE FOR DIALYSIS PATIENTS. [employer] Operator ID - JESSICA MCBC W/PLT COUNT & AUTO [id number] 05:03:29 Test Item Value Reference Range Interpretation [...] (test code = 2801) MR, BRAIN, WITHOUT [id number] 14:58:00Unlisted Reason for Exam - Click Yes and Enter Reason Below->No [facility] : 1935 Sex: MFINAL REPORTPATIENT ID: [id number] MR, BRAIN, WITHOUT CONTRAST INDICATION: Stroke, follow [...] Mecca Rae MDReport Verified Date/Time: 06/24/2021 14:58:04 HIGH SENSITIVITY TROPONIN [id number] 10:55:23 Test Item Value Reference Range Interpretation Comments HIGH SENSITIVITY 4 pg/ml See_Comment [Automated message] TROPONIN I (test code = The system which [id number]) generated this result transmitted ref erence range: <=35. Th e reference range was not used to interpr et this result as normal/abnormal . [employer] Operator ID - [id number] LOGISTICS RESEARCH ENGINEER STAT High Sensitivity Troponin-I results should be used in conjunctionwith other diagnostic information such as ECG, clinical observations and information, and patient symptoms to aid in the diagnosis of ID.HEMOGLOBIN [id number] 08:46:58 Test Item Value Reference Range Interpretation Comments HEMOGLOBIN A1C 5.5 % See_Comment [Automated m essage] ELECTROPHORESIS (Pigit) The system which (test code = 3811) generated this result transmitted ref erence range: <=5.6%. The reference range was not used to int erpret this result as normal/abnormal . "The A1c is measured using a [facility]-certified method. HbA1c value equal to or greater than 6.5% as thediagnosis cutoff for diabetes. An HbA1c value of 5.7- 6.4% indicates increased risk for diabetes (prediabetes)."[employer] Operator ID - [id number], [id number] 22:53:35 Test Item Value Reference Range Interpretation Comments FREE T4 (Pigit) (test code = 655) 0.93 ng/dL 0.70-1.48 [employer] Operator ID - DBTSH/FREE T4 IF [id number] 21:45:12 Test Item Value Reference Range Interpretation Comments THYROID STIMULATING HORMONE 9.599 uIU/mL 0.350-4.940 H (Pigit) (test code = 772) [employer] Operator ID - DBVITAMIN B12 AND [id number] 21:43:08 Test Item Value Reference Range Interpretation Comments VITAMIN B12 525 pg/mL 213-816 (Pigit) (test code = 774) FOLATE (Pigit) 14.90 ng/mL See_Comment [Automated message] (test code = 362) The system which generated this result transmitted ref erence range: >=7.00. The reference range was not used to interpr et this result as normal/abnormal . [employer] Operator ID - DBHIGH SENSITIVITY TROPONIN [id number] 21:13:43 Test Item Value Reference Range Interpretation Comments HIGH SENSITIVITY 5 pg/ml See_Comment [Automated message] TROPONIN I (test code = The system which [id number]) generated this result transmitted ref erence range: <=35. Th e reference range was not used to interpr et this result as normal/abnormal . [employer] Operator ID - DBThe LOGISTICS RESEARCH ENGINEER STAT High Sensitivity Troponin-I results should be used in conjunctionwith other diagnostic information such as ECG, clinical observations and information, and patient symptoms to aid in the diagnosis of ID.[id number] 21:07:23 Test Item Value Reference Range Interpretation Comments PHOSPHORUS (BEAKER) (test code = 3.5 mg/dL 2.3-4.7 604) [employer] Operator ID - DBLIPID [id number] 21:07:23 Test Item Value Reference Range Interpretation [...] Borderline 130-159 High 160-189 Very High >=190 [employer] Operator ID - [id number] 21:07:22 Test Item Value Reference Range Interpretation Comments MAGNESIUM (BEAKER) (test code = 1.9 mg/dL 1.6-2.6 627) [employer] Operator ID - DBCOMPREHENSIVE METABOLIC [id number] 21:07:22 Test Item Value Reference Range Interpretation [...] S NOT APPLICABLE FOR DIALYSIS PATIEN TS. [employer] Operator ID - DBCALCIUM, [id number] 20:55:01 Test Item Value Reference Range Interpretation Comments CALCIUM IONIZED (BEAKER) (test 1.13 mmol/L 1.12-1.27 code = 698) PH, BLOOD (BEAKER) (test code = 7.38 1810) CBC W/PLT COUNT & AUTO [id number] 20:50:01 Test Item Value Reference Range Interpretation [...] % 0-1 PERCENT (BEAKER) (test code = 8891)
[2022-11-01 09:08] LABS: Absolute Lymphocytes (CBC) 1.1 K/uL (0.7-4.9); Hematocrit 39.2 % (39.6-49.0); Lymphocytes % 13.5 % (15.3-44.8); MCV 87.8 fL (80-100); MPV 7.4 fL (7.6-11.3); RBC Red Blood Cell Count 4.46 M/uL (4.33-5.43)
[2022-11-01 09:12] LABS: Protime INR 1.05
[2022-11-01 09:28] LABS: Albumin 3.8 g/dL (3.4-5.0); Bilirubin Total 0.5 mg/dL (0.2-1.0); Magnesium 2.2 mg/dL (1.6-2.4); Potassium 3.8 mEq/L (3.5-5.1); Troponin High Sensitivity 5.6 pg/mL (<58.9)
--- NOTE | 2022-11-01 09:44 | RAD REPORT ---
EXAM DESCRIPTION: RAD - Chest Single View - 11/01/2022 9:36 am CLINICAL HISTORY: near syncop Chest pain. COMPARISON: Chest Single View dated 09/29/2022; Chest Single View dated 07/19/2021; Chest Single View d ated 06/23/2021 FINDINGS: Portable technique limits examination quality. The lungs are grossly clear. The heart is mildly enlarged in size. No displaced fractures.Aortic athe rosclerosis. IMPRESSION: No acute intrathoracic process suspected.
--- NOTE | 2022-11-01 09:50 | RAD REPORT ---
EXAM DESCRIPTION: CTAbdomen Pelvis W Contrast - 11/01/2022 9:39 am CLINICAL HISTORY: Abdominal pain. ABD PAIN COMPARISON: Abdomen Pelvis W Contrast dated 08/06/2021 TECHNIQUE: Biphasic CT imaging of the abdomen and pelvis was performed with 100 ml non-ionic IV cont rast. All CT scans are performed using dose optimization technique as appropriate and may include automated exposure control or mA/KV adjustment according to patient size. FINDINGS: The lung bases are clear.Small hiatal hernia. The liver, spleen, pancreas, adrenal glands and kidneys are within normal limits. Aortoiliac atherosc lerosis. No bowel obstruction, free air, free fluid or abscess. Sigmoid diverticulosis coli without diverticul itis. Moderate stool is present throughout the colon. The appendix is normal. No evidence of signifi cant lymphadenopathy. No suspicious bony findings. IMPRESSION: No acute intra-abdominal or pelvic finding. Moderate fecal retention throughout the colon where numerous diverticula are noted. No evidence of ac cristhian diverticulitis.
[2022-11-01 10:53] LABS: Specific Gravity > 1.030 (1.005-1.030); Urine Bacteria None Seen /HPF (<20); Urine Bilirubin NEGATIVE (Negative); Urine Blood Negative (Negative); Urine Clarity Clear (Clear); Urine Color Light-Yellow (Yellow); Urine Glucose NEGATIVE (Negative); Urine Mucus Slight /HPF (None Seen); Urine Protein TRACE (Negative); Urine RBC <5 /HPF (None Seen); Urine Urobilinogen Normal (Normal)
--- NOTE | 2022-11-01 11:10 | EDPHYS ---
Physician Documentation [facility] Name: Chilo Hendricks Jr Age: 87 yrs Sex: Male : 1935 Arrival Date: 11/01/2022 Time: 08:37 Bed 14 Private MD: ED Physician Samy Nuno HPI: 11/01 17:27 This 87 yrs old Male presents to ER via EMS with complaints of High Blood Pressure, kb Nausea/Vomiting. 17:28 The patient presents with abdominal pain. Onset: The symptoms/episode began/occurred kb today. The symptoms do not radiate. Associated signs and symptoms: Pertinent positives: nausea, vomiting. The symptoms are described as constant. Modifying factors: The symptoms are alleviated by nothing, the symptoms are aggravated by nothing. Severity of pain: At its worst the pain was mild in the emergency department the pain is unchanged. The patient has not experienced similar symptoms in the past. The patient has not recently seen a physician. Pt reports nausea, vomiting and abd pain that started this morning. Also reports he got dizzy upon standing up from bed and fell. Denies hitting head, loc or other injury from fall. Historical: - Allergies: 08:43 No Known Allergies; kc6 - PMHx: 08:43 Hypercholesterolemia; Myocardial infarction; stroke; Hypertensive disorder; kc6 - PSHx: 08:43 cardiac stent; kc6 - Immunization history:: Client reports receiving the 2nd dose of the Covid vaccine, Flu vaccine is up to date. - Social history:: Smoking status: Patient denies any tobacco usage or history of. ROS: 17:27 Constitutional: Negative for fever, chills, and weight loss. kb 17:27 Abdomen/GI: Positive for abdominal pain, nausea and vomiting, Negative for diarrhea, constipation. 17:27 Neuro: Positive for dizziness. 17:27 All other systems are negative. Exam: 08:49 ECG was reviewed by the Attending Physician. kb 17:27 Constitutional: This is a well developed, well nourished patient who is awake, alert, kb and in no acute distress. Head/Face: Normocephalic, atraumatic. ENT: Moist Mucous membranes Cardiovascular: Regular rate and rhythm with a normal S1 and S2. No gallops, murmurs, or rubs. No pulse deficits. Respiratory: Respirations even and unlabored. No increased work of breathing. Talking in full sentences Skin: Warm, dry with normal turgor. Normal color. MS/ Extremity: Pulses equal, no cyanosis. Neurovascular intact. Full, normal range of motion. Neuro: Awake and alert, GCS 15, oriented to person, place, time, and situation. Moves all extremities. Normal gait. 17:27 Abdomen/GI: Inspection: abdomen appears normal, Bowel sounds: normal, Palpation: soft, in all quadrants, mild abdominal tenderness, in the left lower quadrant. Vital Signs: 08:42 BP 152 / 77; Pulse 72; Resp 18 S; Temp 97.7(O); Pulse Ox 97% on R/A; Weight 81.65 kg kc6 (R); Height 5 ft. 7 in. (R); Pain 0/10; 09:21 BP 124 / 65 LA Supine (auto/reg); Pulse 63; kc6 09:21 BP 126 / 70 LA Sitting (auto/reg); Pulse 68; kc6 09:21 BP 130 / 75 LA Standing (auto/reg); Pulse 74; kc6 10:10 BP 131 / 88; Pulse 66; Resp 17 S; Pulse Ox 97% on R/A; kc6 11:03 BP 153 / 75; Pulse 59; Resp 16 S; Pulse Ox 96% on R/A; kc6 08:42 Body Mass Index 28.19 (81.65 kg, 170.18 cm) 6 08:42 Pain Scale: Adult kc6 MDM: 08:41 Patient medically screened. kb 17:27 Differential diagnosis: bowel obstruction, diverticulitis, non-specific abd pain. Data kb reviewed: vital signs, nurses notes. Historians other than the Patient: EMS: [facility]. Counseling: I had a detailed discussion with the patient and/or guardian regarding: the historical points, exam findings, and any diagnostic results supporting the discharge/admit diagnosis, lab results, radiology results, the need for outpatient follow up, a family practitioner, to return to the emergency department if symptoms worsen or persist or if there are any questions or concerns that arise at home. 11/01 08:42 Order name: CBC with Diff; Complete Time: 09:21 kb 11/01 08:42 Order name: Magnesium; Complete Time: 09:35 kb 11/01 08:42 Order name: Protime (+inr); Complete Time: 09:35 kb 08/04 08:42 Order name: Ptt, Activated; Complete Time: 09:35 kb 11/01 08:42 Order name: Troponin High Sensitivity; Complete Time: 09:35 kb 11/01 08:42 Order name: Urinalysis w/ reflexes; Complete Time: 10:54 kb 11/01 08:42 Order name: CMP; Complete Time: 09:35 kb 11/01 08:42 Order name: Chest Single View XRAY; Complete Time: 09:50 kb 11/01 08:42 Order name: CT Abd/Pelvis - IV Contrast Only; Complete Time: 09:50 kb 11/01 08:42 Order name: EKG; Complete Time: 08:43 kb 11/01 08:42 Order name: Cardiac monitoring; Complete Time: 08:45 kb 11/01 08:42 Order name: EKG - Nurse/Tech; Complete Time: 08:45 kb 11/01 08:42 Order name: IV Saline Lock; Complete Time: 08:45 kb 11/01 08:42 Order name: Labs collected and sent; Complete Time: 08:58 kb 11/01 08:42 Order name: NPO; Complete Time: 08:46 kb 11/01 08:42 Order name: O2 Per Protocol; Complete Time: 08:45 kb 11/01 08:42 Order name: O2 Sat Monitoring; Complete Time: 08:46 kb 11/01 08:42 Order name: Orthostatics; Complete Time: 09:20 kb EC:49 Rate is 62 beats/min. Rhythm is regular. QRS [place] is Normal. SC interval is normal at kb 136 msec. QRS interval is normal at 94 msec. QT interval is normal at 434 msec. Administered Medications: No medications were administered Disposition: 18:25 Co-signature as Attending Physician, Samy Nuno MD I reviewed the patient's care rt provided by the Advanced Practice Provider and agree with the diagnosis and treatment plan. Disposition Summary: 11/01/22 11:10 Discharge Ordered Location: Home kb Condition: Stable kb Diagnosis - Dizziness and giddiness kb - Nausea with vomiting, unspecified kb - Abdominal pain, Generalized kb Followup: kb - With: Emergency Department - When: As needed - Reason: Worsening of condition Followup: kb - With: Private Physician - When: 2 - 3 days - Reason: Recheck today's complaints, Continuance of care, Re-evaluation by your physician Discharge Instructions: - Discharge Summary Sheet kb - Nausea and Vomiting, Adult, [id number] kb - Abdominal Pain, Adult, [id number] kb - Dizziness, [id number] kb Forms: - Medication Reconciliation Form kb - Thank You Letter kb - Antibiotic Education kb - Prescription Opioid Use kb - Patient Portal Instructions kb Signatures: Dispatcher [employer] Chasity Joyce FNP-C FNP-Abi Szymanski RN RN kc6 Samy Nuno MD MD rt
--- NOTE | 2022-11-01 11:10 | ER ---
Nurse's Notes [facility] Name: Chilo Hendricks Jr Age: 87 yrs Sex: Male : 1935 Arrival Date: 11/01/2022 Time: 08:37 Bed 14 Private MD: Diagnosis: Dizziness and giddiness;Nausea with vomiting, unspecified;Abdominal pain, Generalized Presentation: 11/01 08:42 Chief complaint: EMS states: pt woke up this morning reporting n/v, htn, and dizziness kc6 upon standing. pt reports falling today. denies LOC or pain at this time. 10mg Relgan given en route. Coronavirus screen: At this time, the client does not indicate any symptoms associated with coronavirus-19. Ebola Screen: No symptoms or risks identified at this time. Initial Sepsis Screen: Does the patient meet any 2 criteria? No. Patient's initial sepsis screen is negative. Does the patient have a suspected source of infection? No. Patient's initial sepsis screen is negative. Risk Assessment: Do you want to hurt yourself or someone else? Patient reports no desire to harm self or others. Onset of symptoms was November 01, 2022. 08:42 Method Of Arrival: EMS kc6 08:42 Acuity: JESUS 3 kc6 Triage Assessment: 08:43 General: Appears in no apparent distress. comfortable, Behavior is calm, cooperative, kc6 appropriate for age. Pain: Denies pain. EENT: No signs and/or symptoms were reported regarding the EENT system. Neuro: Rivas Agitation-Sedation Scale (RASS): 0 - Alert and Calm Level of Consciousness is awake, alert, obeys commands, Oriented to person, place, time, situation, Appropriate for age Reports dizziness. Cardiovascular: Capillary refill < 3 seconds. Respiratory: Airway is patent Trachea midline Respiratory effort is even, unlabored, Respiratory pattern is regular, symmetrical. GI: Reports nausea, vomiting, Patient currently denies diarrhea. : No signs and/or symptoms were reported regarding the genitourinary system. Derm: No signs and/or symptoms reported regarding the dermatologic system. Skin is intact, is healthy with good turgor, Skin is pink, warm \T\ dry. Musculoskeletal: No signs and/or symptoms reported regarding the musculoskeletal system. Circulation, motion, and sensation intact. Capillary refill < 3 seconds, Range of motion: intact in all extremities. Historical: - Allergies: 08:43 No Known Allergies; kc6 - PMHx: 08:43 Hypercholesterolemia; Myocardial infarction; stroke; Hypertensive disorder; kc6 - PSHx: 08:43 cardiac stent; kc6 - Immunization history:: Client reports receiving the 2nd dose of the Covid vaccine, Flu vaccine is up to date. - Social history:: Smoking status: Patient denies any tobacco usage or history of. Screenin:45 [facility] ED Fall Risk Assessment (Adult) History of falling in the last 3 months, kc6 including since admission No falls in past 3 months (0 pts) Confusion or Disorientation No (0 pts) Intoxicated or Sedated No (0 pts) Impaired Gait No (0 pts) Mobility Assist Device Used No (0 pt) Altered Elimination No (0 pt) Score/Fall Risk Level 0 - 2 = Low Risk. Abuse screen: Denies threats or abuse. Denies injuries from another. Nutritional screening: No deficits noted. Tuberculosis screening: No symptoms or risk factors identified. Assessment: 08:45 Reassessment: please see triage assessment. kc6 09:45 Reassessment: Patient appears in no apparent distress at this time. No changes from [facility] previously documented assessment. Patient and/or family updated on plan of care and expected duration. Pain level reassessed. Patient is alert, oriented x 3, equal unlabored respirations, skin warm/dry/pink. 11:03 Reassessment: Patient appears in no apparent distress at this time. No changes from [facility] previously documented assessment. Patient and/or family updated on plan of care and expected duration. Pain level reassessed. Patient is alert, oriented x 3, equal unlabored respirations, skin warm/dry/pink. Vital Signs: 08:42 BP 152 / 77; Pulse 72; Resp 18 S; Temp 97.7(O); Pulse Ox 97% on R/A; Weight 81.65 kg kc6 (R); Height 5 ft. 7 in. (R); Pain 0/10; 09:21 BP 124 / 65 LA Supine (auto/reg); Pulse 63; kc6 09:21 BP 126 / 70 LA Sitting (auto/reg); Pulse 68; kc6 09:21 BP 130 / 75 LA Standing (auto/reg); Pulse 74; kc6 10:10 BP 131 / 88; Pulse 66; Resp 17 S; Pulse Ox 97% on R/A; kc6 11:03 BP 153 / 75; Pulse 59; Resp 16 S; Pulse Ox 96% on R/A; kc6 08:42 Body Mass Index 28.19 (81.65 kg, 170.18 cm) kc6 08:42 Pain Scale: Adult [facility] ED Course: 08:41 Patient arrived in ED. mm9 08:41 Chasity Saravia [facility]-C [facility]. kb 08:41 Samy Nuno MD is Attending Physician. kb 08:42 Aib Nunez, JERRY is Primary Nurse. kc6 08:43 Triage completed. kc6 08:43 Arm band placed on. kc6 08:45 Patient has correct armband on for positive identification. Bed in low position. Call kc6 light in reach. Side rails up X2. 08:45 Maintain EMS IV. Dressing intact. Good blood return noted. Site clean \T\ dry. Gauge \T\ gayle 6 site: 18G RAC. 08:51 EKG done, by ED staff. aw1 08:59 Initial lab(s) drawn, by me, sent to lab. aw1 09:38 Chest Single View XRAY In Process Unspecified. EDMS 09:41 CT Abd/Pelvis - IV Contrast Only In Process Unspecified. EDMS 11:24 No provider procedures requiring assistance completed. IV discontinued, intact, kc6 bleeding controlled, No redness/swelling at site. Pressure dressing applied. Administered Medications: No medications were administered Medication: 11:24 VIS not applicable for this client. kc6 Outcome: 11:10 Discharge ordered by . kb 11:24 Discharged to home ambulatory, with family. kc6 11:24 Condition: improved 11:24 Discharge instructions given to patient, Instructed on discharge instructions, follow up and referral plans. Demonstrated understanding of instructions, follow-up care. 11:24 Patient left the ED. kc6 Signatures: Dispatcher [employer] EDMS Chasity Saravia FNP-C FNP-Ckb Campbell, Kaitlyn, RN RN kc6 Pat Guzman mm9 Blake Gaonayssa aw1
[2022-11-01 11:38] VITALS: TEMP 97.7
[2022-11-01 11:41] VITALS: BP 153/75; O2SAT 96
--- NOTE | 2022-11-04 13:13 | EKG ---
Test Date: 2022-11-01 Test Time: 08:43:31 [employer]: PAUL MEASUREMENT RESULTS: Intervals: Rate: 62 AR: 136 QRSD: 94 QT: 428 QTc: 434 [place]iesel: P: 57 AR: 136 QRS: 22 T: 5 INTERPRETIVE STATEMENTS: Normal sinus rhythm Low voltage QRS Cannot rule out Anterior infarct, age undetermined Abnormal ECG Compared to ECG 09/29/2022 00:01:41 Sinus bradycardia no longer present Myocardial infarct finding still present Electronically Signed On 11-04-22 13:09:27 CDT by Edis Garcia
== END 2022-11-01 11:24 | disposition home or self-care (01) ==
LOC: ER 08:37
DX: R42 Dizziness and giddiness (principal); R11.2 Nausea with vomiting, unspecified; R10.84 Generalized abdominal pain; I10 Essential (primary) hypertension; I25.2 Old myocardial infarction; Z95.818 Presence of other cardiac implants and grafts
CPT/HCPCS: 93005; 85025; 81001; 36415; 83735; 85610; 85730; 84484; 80053; 74177; 71045; 99284; Q9967